=== PATIENT | female | born 1940 | race Caucasian/White ===

== ENCOUNTER 2018-03-14 10:50 | Inpatient (IN) | payer MEDICARE ==
[2018-03-14 14:12] LABS: ALT 28 U/L (9-52); AST 30 U/L (14-36); Alkaline Phosphatase 98 U/L (38-126); Anion Gap 10 mmol/L; Blood Urea Nitrogen 26 mg/dL (7-17); Calcium 9.2 mg/dL (8.4-10.2); Carbon Dioxide 25 mmol/L (22-30); Chloride 103 mmol/L (98-107); Glucose 115 mg/dL (74-99); Sodium 138 mmol/L (137-145); Total Bilirubin 1.2 mg/dL (0.2-1.3); Total Protein 6.4 g/dL (6.3-8.2)
[2018-03-14 14:17] LABS: Potassium 4.3 mmol/L (3.5-5.1)
[2018-03-14 14:20] LABS: Anisocytosis Slight; Basophils % (A) 0 %; Eosinophils # (A) 0.1 k/uL (0-0.7); Eosinophils % (A) 1 %; HGB 14.2 gm/dL (11.4-16.0); Lymphocytes # (A) 0.6 k/uL (1.0-4.8); Lymphocytes % (A) 7 %; MCH 29.3 pg (25.0-35.0); MCHC 32.9 g/dL (31.0-37.0); MCV 88.8 fL (80.0-100.0); Mean Platelet Volume 6.9; Monocytes # (A) 0.4 k/uL (0-1.0); Monocytes % (A) 4 %; Neutrophils % (A) 88 %; Platelet Count 477 k/uL (150-450); RBC 4.84 m/uL (3.80-5.40); RDW 16.4 % (11.5-15.5)
--- NOTE | 2018-03-14 14:22 | XR ---
EXAMINATION TYPE: XR chest 2V DATE OF EXAM: 03/14/2018 COMPARISON: None HISTORY: 78-year-old female with cough TECHNIQUE: PA and lateral views FINDINGS: Heart upper limits of normal in size. Increased retrosternal clear space. Mild biapical pleural-paren chymal scarring. No consolidation or pleural effusion. Subtle nodularity at the right lower lung coul d represent nipple shadow, costochondral calcifications, underlying calcified granuloma, or pulmonary nodule. IMPRESSION: No acute cardiopulmonary process. Possible underlying COPD. There is also a nodular density at the ri ght lower lung for which 4 - 6 week follow-up radiographs are recommended. Differential consideration s above.
--- NOTE | 2018-03-14 15:04 | ED ---
General Adult HPI - General Chief complaint: Abdominal Pain Stated complaint: ovarian mass/vomiting-sent by Time Seen by Provider: 03/14/18 13:24 Source: patient, RN notes reviewed Mode of arrival: ambulatory Limitations: no limitations - History of Present Illness Initial comments: Patient 78-year-old female presented to the emergency room today with a chief complaint of increased abdominal distention with decreased appetite. Patient's symptoms began approximately one month ago has been following his family doctor ordered a CT and chest x-ray that was grossly deformed tomorrow. Patient had increased nausea vomiting over the last day. Does admit to weight loss. Admits to a large amount of abdominal swelling with discomfort that comes and goes. Patient denies any other complaints. Patient denies any recent fever, chills, shortness of breath, chest pain, back pain, abdominal pain, nausea or vomiting, numbness or tingling, dysuria or hematuria, constipation or diarrhea, headaches or visual changes, or any other complaints. - Related Data Home Medications Medication Instructions Recorded Confirmed Furosemide [Lasix] 20 mg PO DAILY 03/14/18 03/14/18 Potassium Chloride [K-Tab ER] 10 meq PO DAILY 03/14/18 03/14/18 buPROPion HCL [Wellbutrin SR] 150 mg PO DAILY 03/14/18 03/14/18 Allergies Allergy/AdvReac Type Severity Reaction Status Date / Time No Known Allergies Allergy Verified 03/14/18 14:02 Review of Systems ROS Statement: Those systems with pertinent positive or pertinent negative responses have been documented in the HPI. ROS Other: All systems not noted in ROS Statement are negative. Past Medical History Additional Past Medical History / Comment(s): ovarian mass History of Any Multi-Drug Resistant Organisms: None Reported Past Surgical History: No Surgical Hx Reported Past Psychological History: Depression Smoking Status: Current every day smoker Past Alcohol Use History: Occasional Past Drug Use History: None Reported General Exam Limitations: no limitations Course Vital Signs 03/14/18 10:56 Temperature 98.2 F Pulse Rate 90 Respiratory 20 Rate Blood Pressure 125/82 O2 Sat by Pulse 96 Oximetry Medical Decision Making - Medical Decision Making Patient's CT of the abdomen and pelvis does show 1. Extensive large and small bowel dilation secondary to a distal obstructing sigmoid mass. Additionally swirling of the mesentery is seen and superimposed into an internal hernia remains a possibility as are a few loops of decompressed small bowel material against one another due to mass effect from the markedly enlarged loops of small and large bowel. Size of the large and small bowel make this patient at risk for possible perforation. 2. Small volume abdominal ascites and mesenteric congestion. 3. Left hepatic lobe intrahepatic biliary ductal dilation and probable panic cyst. Patient's chest x-ray reviewed does show a nodule on the right side. Patient's labs reviewed. Resting comfortably at this time with some mild nausea no active vomiting here. NG tube will be placed to try to decompress. Case was discussed with admitting physician Dr. Rothman recommending surgical consult. - Lab Data Result diagrams: 03/14/18 13:52 03/14/18 13:52 Lab Results 03/14/18 03/14/18 03/14/18 Range/Units 13:52 13:52 13:52 WBC 8.0 (3.8-10.6) k/uL RBC 4.84 (3.80-5.40) m/uL Hgb 14.2 (11.4-16.0) gm/dL Hct 43.0 (34.0-46.0) % MCV 88.8 (80.0-100.0) fL MCH 29.3 (25.0-35.0) pg MCHC 32.9 (31.0-37.0) g/dL RDW 16.4 H (11.5-15.5) % Plt Count 477 H (150-450) k/uL Neutrophils % 88 % Lymphocytes % 7 % Monocytes % 4 % Eosinophils % 1 % Basophils % 0 % Neutrophils # 7.0 (1.3-7.7) k/uL Lymphocytes # 0.6 L (1.0-4.8) k/uL Monocytes # 0.4 (0-1.0) k/uL Eosinophils # 0.1 (0-0.7) k/uL Basophils # 0.0 (0-0.2) k/uL Anisocytosis Slight Sodium 138 (137-145) mmol/L Potassium 4.3 (3.5-5.1) mmol/L Chloride 103 (98-107) mmol/L Carbon Dioxide 25 (22-30) mmol/L Anion Gap 10 mmol/L BUN 26 H (7-17) mg/dL Creatinine 0.60 (0.52-1.04) mg/dL Est GFR (CKD-EPI)AfAm >90 (>60 ml/min/1.73 sqM) Est GFR (CKD-EPI)NonAf 88 (>60 ml/min/1.73 sqM) Glucose 115 H (74-99) mg/dL Calcium 9.2 (8.4-10.2) mg/dL Total Bilirubin 1.2 (0.2-1.3) mg/dL AST 30 (14-36) U/L ALT 28 (9-52) U/L Alkaline Phosphatase 98 (38-126) U/L NT-Pro-B Natriuret Pep 1540 pg/mL Total Protein 6.4 (6.3-8.2) g/dL Albumin 4.0 (3.5-5.0) g/dL Disposition Clinical Impression: Mass of colon, Bowel obstruction Disposition: ADMITTED IP TO THIS HOSP Condition: Stable Is patient prescribed a controlled substance at d/c from ED?: No Referrals: Ana Aburto DO [Primary Care Provider] - 1-2 days Time of Disposition: 15:40
--- NOTE | 2018-03-14 15:26 | CT ---
EXAMINATION TYPE: CT abdomen pelvis w con DATE OF EXAM: 03/14/2018 HISTORY: Nausea, vomiting and generalized abdominal pain and bloating. CT DLP: 691mGycm Automated Exposure Control for Dose Reduction was Utilized. CONTRAST: CT scan of the abdomen and pelvis is performed with IV Contrast, patient injected with 100 mL of Isov ue M300. COMPARISON: None. FINDINGS: LUNG BASES: Mediastinal anterior loculated fluid is present. Small hiatal hernia seen with air-fluid level indicative of residual debris or gastroesophageal reflux LIVER/GB: Left lobe intrahepatic bilia ry ductal dilatation is seen with areas of hyperemia and hypopharyngeal region that are wedge-shaped. Solitary hepatic lesion in the subcapsular on series 3 image 18 measures 9 mm and is fluid attenuate d likely representing a simple cyst PANCREAS: Pancreatic parenchyma is ill-defined secondary to mass effect. SPLEEN: No splenomegaly. ADRENALS: No focal nodule seen. KIDNEYS: Kidneys enhance symmetrically without hydronephrosis. BOWEL: Large bowel is markedly dilated up to 10.1 cm, this places the patient at risk for perforation . This is secondary to obstructing mass of the sigmoid colon that appears elongated seen on axial ser ies 3 image 63 through 69. This is near completely obstructive with decompression of the bowel just d istal to this although there is rectal stool noted. There is marked prominence of the enlargement of the small bowel with mucosal hyperemia and air-fluid levels and dilatation of 2 4.2 cm as well as sma ll bowel feces sign. There is mild abdominal ascites, and perienteric mesenteric edema. Few proximal small bowel loops are decompressed with mass effect upon the abdominal organs from the massively dila [place] bowel. Although there is swirling of the mesentery seen on series 3 image 46 through 54 no beakin g of small bowel is seen to suggest internal hernia. Given the swirling of the mesentery additional i nternal hernia is not excluded. LYMPH NODES: No greater than 1cm abdominal or pelvic lymph nodes are appreciated. OSSEOUS STRUCTURES: No suspicious osseous lesions. OTHER: Extensive calcific atheromatous changes are seen of the abdominal aorta and its branches.. IMPRESSION: 1. Extensive large and small bowel dilatation secondary to a distal obstructing sigmoid mass. Additio keshia swirling of the mesentery is seen and superimposed internal hernia remains a possibility as are a few loops of decompressed small bowel matted against one another due to mass effect from the marke dly enlarged other loops of small and large bowel. The size of the large and small bowel make this pa tient at risk for perforation. Findings were discussed with Keshawn HILL by Dr. Jasmine at 1524 on 03/14/2018. 2. Small volume abdominal ascites and mesenteric congestion. 3. Left hepatic lobe intrahepatic biliary ductal dilatation and probable hepatic cyst.
[2018-03-14] MEDS ORDERED: SODIUM CHLORIDE 0.9% 1,000 ML IV STA (15:39)
[2018-03-14] MEDS ORDERED: ACETAMINOPHEN TAB 325 MG TAB PO PRN (15:50)
[2018-03-14] MEDS ORDERED: ONDANSETRON 4 MG/2 ML VIAL IVP PRN (15:50)
[2018-03-14] MEDS ORDERED: MORPHINE SULFATE 4 MG/ML SYRINGE IV PRN (15:50)
[2018-03-14] MEDS ORDERED: LORazepam 2 MG/ML INJ IV PRN (15:50)
[2018-03-14] MEDS ORDERED: NALOXONE 0.4 MG/ML 1 ML VIAL IV PRN (15:50)
--- NOTE | 2018-03-14 19:48 | P.HPIM ---
History of Present Illness H&P Date: 03/14/18 Chief Complaint: generalized weakness and increasing abdominal distention 3-4 days 78-year-old female who is a in good state of health noted by the daughter has been losing weight for the last several week in spite of the high protein shake the symptoms have been progressive in the last 2 or 3 days she has significant abdominal distention as well as the severe constipation patient was brought into the emergency department and found to have the obstructive lesion in the sigmoid colon and severe degree of abdominal distention, general surgery has been consulted patient had the NG tube significant amount of gastric secretions were removed via suction however lately no significant output is present patient is otherwise awake and alert denies any pain but does have a feeling of distention Review of Systems All systems: negative Past Medical History Past Medical History: No Reported History Additional Past Medical History / Comment(s): cataracts(sx), bladder infection 4 years ago, anxiety History of Any Multi-Drug Resistant Organisms: None Reported Past Surgical History: No Surgical Hx Reported Additional Past Surgical History / Comment(s): cataracts. Past Anesthesia/Blood Transfusion Reactions: No Reported Reaction Smoking Status: Current every day smoker - Past Family History Father Family Medical History: Myocardial Infarction ([place]) Additional Family Medical History / Comment(s): from cardiac carrest at age77 Mother Additional Family Medical History / Comment(s): divertiuclar disease- from sepsis Medications and Allergies Home Medications Medication Instructions Recorded Confirmed Type Furosemide [Lasix] 20 mg PO DAILY 03/14/18 03/14/18 History Potassium Chloride [K-Tab ER] 10 meq PO DAILY 03/14/18 03/14/18 History buPROPion HCL [Wellbutrin SR] 150 mg PO DAILY 03/14/18 03/14/18 History Allergies Allergy/AdvReac Type Severity Reaction Status Date / Time No Known Allergies Allergy Verified 03/14/18 14:02 Physical Exam Vitals: Vital Signs Temp Pulse Pulse Resp BP BP Pulse Ox 03/14/18 17:29 98.1 F 91 16 121/73 96 03/14/18 15:56 98 F 82 18 164/75 97 03/14/18 10:56 98.2 F 90 20 125/82 96 Intake and Output 03/14/18 03/14/18 03/14/18 06:59 14:59 22:59 Other: Weight 46.266 kg - Constitutional General appearance: cooperative, disheveled, mild distress, thin - EENT Eyes: anicteric sclerae, EOMI, PERRLA, poor dentition, normal appearance Ears: bilateral: normal - Neck Neck: normal ROM Carotids: bilateral: upstroke normal, bruit absent Thyroid: bilateral: normal size - Respiratory Respiratory: bilateral: CTA - Cardiovascular Heart sounds: normal: S1, S2 - Gastrointestinal Very distended abdomen with tympanic resonance General gastrointestinal: decreased bowel sounds, distended - Neurologic Neurologic: CNII-XII intact - Musculoskeletal Musculoskeletal: gait normal, generalized weakness, strength equal bilaterally - Psychiatric Psychiatric: A&O x's 3, appropriate affect, intact judgment & insight Results CBC & Chem 7: 03/14/18 13:52 03/14/18 13:52 Labs: Abnormal Lab Results - Last 24 Hours (Table) 03/14/18 03/14/18 Range/Units 13:52 13:52 RDW 16.4 H (11.5-15.5) % Plt Count 477 H (150-450) k/uL Lymphocytes # 0.6 L (1.0-4.8) k/uL BUN 26 H (7-17) mg/dL Glucose 115 H (74-99) mg/dL Chest x-ray: report reviewed, image reviewed (Admitted chest x-ray revealed COPD -like changes right lower lobe nodular density computed tomography scan of the chest revealed mediastinal small hiatal hernia loculated fluid small solitary hepatic nodule is seen) CT scan - abdomen: report reviewed, image reviewed (Findings as noted above significantly large bowel to 10 cm noted related to obstructive mass in the sigmoid colon) Thrombosis Risk Factor Assmnt - Choose All That Apply Any of the Below Risk Factors Present?: Yes Each Factor Represents 1 point: Minor surgery planned Other Risk Factors: Yes Each Risk Factor Represents 3 Points: Age 75 years or older Other congenital or acquired thrombophilia - If yes, enter type in comment: No Thrombosis Risk Factor Assessment Total Risk Factor Score: 4 Thrombosis Risk Factor Assessment Level: Moderate Risk Assessment and Plan Assessment: Obstructive sigmoid colon mass Severe lead dilated colon Elevated BNP related to passive hepatic congestion and preload Bowel obstruction Generalized weakness medical debility and cachexia Plan: Keep patient nothing by mouth NG tube suction Repeat labs tomorrow Gen. surgery consulted aware on's for OR tomorrow DVT and peptic ulcer disease prophylaxis Patient probably will require a designated computed tomography scan of the chest and PET scan on outpatient basis to look into liver nodule and lung density at the bases and for staging purposes Time with Patient: Greater than 30
[2018-03-14] MEDS: HEPARIN SODIUM,PORCINE 5,000 UNIT/ML 1 ML VIAL SQ SCH (22:16)
[2018-03-15 02:30] LABS: Appearance,Urine Clear (Clear); Bilirubin,Urine Negative (Negative); Blood,Urine Negative (Negative); Color,Urine Yellow; Glucose,Urine (UA) Negative (Negative); Ketones,Urine 1+ (Negative); Leukocyte Esterase,Urine Negative (Negative); Nitrite,Urine Negative (Negative); PH, Urine 5.5 (5.0-8.0); Protein,Urine 1+ (Negative); RBC,Urine 1 /hpf (0-5); Squamous Epithelial Cell,Urine 1 /hpf (0-4); Urobilinogen,Urine <2.0 mg/dL (<2.0); WBC,Urine <1 /hpf (0-5)
[2018-03-15 02:31] LABS: Specific Gravity,Urine >1.050 (1.001-1.035)
[2018-03-15 06:55] LABS: Anisocytosis Slight; Basophils % (A) 0 %; Eosinophils % (A) 0 %; HCT 40.3 % (34.0-46.0); HGB 12.8 gm/dL (11.4-16.0); Lymphocytes # (A) 0.9 k/uL (1.0-4.8); Lymphocytes % (A) 12 %; MCH 28.2 pg (25.0-35.0); MCHC 31.8 g/dL (31.0-37.0); MCV 88.9 fL (80.0-100.0); Mean Platelet Volume 6.8; Monocytes # (A) 0.5 k/uL (0-1.0); Monocytes % (A) 6 %; Neutrophils # (A) 5.9 k/uL (1.3-7.7); Neutrophils % (A) 80 %; Platelet Count 396 k/uL (150-450); RBC 4.53 m/uL (3.80-5.40); RDW 16.1 % (11.5-15.5); WBC 7.4 k/uL (3.8-10.6)
[2018-03-15 07:02] LABS: Prothrombin Time 10.3 sec (9.0-12.0)
[2018-03-15 07:15] LABS: ALT 27 U/L (9-52); AST 22 U/L (14-36); Albumin 2.9 g/dL (3.5-5.0); Alkaline Phosphatase 86 U/L (38-126); Anion Gap 8 mmol/L; Blood Urea Nitrogen 25 mg/dL (7-17); Calcium 8.5 mg/dL (8.4-10.2); Carbon Dioxide 24 mmol/L (22-30); Chloride 106 mmol/L (98-107); Glucose 70 mg/dL (74-99); Magnesium 2.1 mg/dL (1.6-2.3); Phosphorus 3.3 mg/dL (2.5-4.5); Potassium 4.8 mmol/L (3.5-5.1); Sodium 138 mmol/L (137-145); Total Bilirubin 1.1 mg/dL (0.2-1.3)
--- NOTE | 2018-03-15 07:56 | P.GSCN ---
History of Present Illness Consult date: 03/15/18 Reason for Consult: Sigmoid colon obstruction History of present illness: This is a 70-year-old female who sees Dr. Aburto's outpatient. Patient has had complaints of constipation over the last several weeks. Patient was admitted to the hospital with a four-day history of no bowel movements and abdominal distention. Her CAT scan performed yesterday shows evidence of complete bowel obstruction with sigmoid colon obstructing mass. Past Medical History Past Medical History: No Reported History Additional Past Medical History / Comment(s): cataracts(sx), bladder infection 4 years ago, anxiety History of Any Multi-Drug Resistant Organisms: None Reported Past Surgical History: No Surgical Hx Reported Additional Past Surgical History / Comment(s): cataracts. Past Anesthesia/Blood Transfusion Reactions: No Reported Reaction Smoking Status: Current every day smoker - Past Family History Father Family Medical History: Myocardial Infarction ([place]) Additional Family Medical History / Comment(s): from cardiac carrest at age77 Mother Additional Family Medical History / Comment(s): divertiuclar disease- from sepsis Medications and Allergies Home Medications Medication Instructions Recorded Confirmed Type Furosemide [Lasix] 20 mg PO DAILY 03/14/18 03/14/18 History Potassium Chloride [K-Tab ER] 10 meq PO DAILY 03/14/18 03/14/18 History buPROPion HCL [Wellbutrin SR] 150 mg PO DAILY 03/14/18 03/14/18 History Allergies Allergy/AdvReac Type Severity Reaction Status Date / Time No Known Allergies Allergy Verified 03/14/18 14:02 Surgical - Exam Vital Signs Temp Pulse Resp BP Pulse Ox 98.2 F 90 20 125/82 96 03/14/18 10:56 03/14/18 10:56 03/14/18 10:56 03/14/18 10:56 03/14/18 10:56 - General well developed, moderate distress - Eyes PERRL - ENT normal pinna - Neck no masses - Respiratory normal expansion - Cardiovascular Rhythm: regular - Abdomen Edith soft. There is significant distention of the abdomen, there is no rebound or guarding Results - Labs 03/15/18 06:38 03/15/18 06:38 Abnormal Lab Results - Last 24 Hours (Table) 03/14/18 03/14/18 03/15/18 Range/Units 13:52 13:52 01:55 RDW 16.4 H (11.5-15.5) % Plt Count 477 H (150-450) k/uL Lymphocytes # 0.6 L (1.0-4.8) k/uL BUN 26 H (7-17) mg/dL Glucose 115 H (74-99) mg/dL Total Protein (6.3-8.2) g/dL Albumin (3.5-5.0) g/dL Ur Specific [place] >1.050 H (1.001-1.035) Urine Protein 1+ H (Negative) Urine Ketones 1+ H (Negative) 03/15/18 03/15/18 Range/Units 06:38 06:38 RDW 16.1 H (11.5-15.5) % Plt Count (150-450) k/uL Lymphocytes # 0.9 L (1.0-4.8) k/uL BUN 25 H (7-17) mg/dL Glucose 70 L (74-99) mg/dL Total Protein 5.0 L (6.3-8.2) g/dL Albumin 2.9 L (3.5-5.0) g/dL Ur Specific [place] (1.001-1.035) Urine Protein (Negative) Urine Ketones (Negative) Diabetes panel 03/14/18 03/15/18 Range/Units 13:52 06:38 Sodium 138 138 (137-145) mmol/L Potassium 4.3 4.8 (3.5-5.1) mmol/L Chloride 103 106 (98-107) mmol/L Carbon Dioxide 25 24 (22-30) mmol/L BUN 26 H 25 H (7-17) mg/dL Creatinine 0.60 0.60 (0.52-1.04) mg/dL Glucose 115 H 70 L (74-99) mg/dL Calcium 9.2 8.5 (8.4-10.2) mg/dL AST 30 22 (14-36) U/L ALT 28 27 (9-52) U/L Alkaline Phosphatase 98 86 (38-126) U/L Total Protein 6.4 5.0 L (6.3-8.2) g/dL Albumin 4.0 2.9 L (3.5-5.0) g/dL Calcium panel 03/14/18 03/15/18 Range/Units 13:52 06:38 Calcium 9.2 8.5 (8.4-10.2) mg/dL Phosphorus 3.3 (2.5-4.5) mg/dL Albumin 4.0 2.9 L (3.5-5.0) g/dL Pituitary panel 03/14/18 03/15/18 Range/Units 13:52 06:38 Sodium 138 138 (137-145) mmol/L Potassium 4.3 4.8 (3.5-5.1) mmol/L Chloride 103 106 (98-107) mmol/L Carbon Dioxide 25 24 (22-30) mmol/L BUN 26 H 25 H (7-17) mg/dL Creatinine 0.60 0.60 (0.52-1.04) mg/dL Glucose 115 H 70 L (74-99) mg/dL Calcium 9.2 8.5 (8.4-10.2) mg/dL Adrenal panel 03/14/18 03/15/18 Range/Units 13:52 06:38 Sodium 138 138 (137-145) mmol/L Potassium 4.3 4.8 (3.5-5.1) mmol/L Chloride 103 106 (98-107) mmol/L Carbon Dioxide 25 24 (22-30) mmol/L BUN 26 H 25 H (7-17) mg/dL Creatinine 0.60 0.60 (0.52-1.04) mg/dL Glucose 115 H 70 L (74-99) mg/dL Calcium 9.2 8.5 (8.4-10.2) mg/dL Total Bilirubin 1.2 1.1 (0.2-1.3) mg/dL AST 30 22 (14-36) U/L ALT 28 27 (9-52) U/L Alkaline Phosphatase 98 86 (38-126) U/L Total Protein 6.4 5.0 L (6.3-8.2) g/dL Albumin 4.0 2.9 L (3.5-5.0) g/dL - Imaging CT scan - abdomen: report reviewed (CT shows evidence of complete colon obstruction and sigmoid colon due to mass. There is dilation of the colon and small bowel.) Assessment and Plan Assessment: Obstructing sigmoid colon mass. Patient will undergo exploratory laparotomy with possible sigmoid colectomy and decompressive colostomy.
[2018-03-15] MEDS: HEPARIN SODIUM,PORCINE 5,000 UNIT/ML 1 ML VIAL SQ SCH ×4 (08:59→23:31)
[2018-03-15] MEDS: PANTOPRAZOLE 40 MG/10 ML VIAL IVP SCH (09:05)
[2018-03-15] MEDS ORDERED: IV FLUID CONTINUATION 1,000 ML IV ONE (09:29)
[2018-03-15] MEDS ORDERED: MIDAZOLAM 2 MG/2 ML VIAL IVP ONE (10:05)
[2018-03-15] MEDS ORDERED: diphenhydrAMINE 50 MG/ML 1 ML VIAL IVP PRN (10:14)
[2018-03-15] MEDS ORDERED: NALOXONE 0.4 MG/ML 1 ML VIAL IV PRN (10:14)
[2018-03-15] MEDS ORDERED: LACTATED RINGERS 1,000 ML IV ONE ×2 (10:32→11:45)
[2018-03-15] MEDS ORDERED: ROCURONIUM BROMIDE 10 MG/ML 10 ML VIAL IV ONE (10:51)
[2018-03-15] MEDS ORDERED: NEOSTIGMINE 1 MG/ML 10 ML VIAL ONE (10:51)
[2018-03-15] MEDS ORDERED: MIDAZOLAM 2 MG/2 ML VIAL ONE (10:51)
[2018-03-15] MEDS ORDERED: ePHEDrine SULFATE/0.9% NACL/PF 50 MG/5 ML SYRINGE IV ONE (10:51)
[2018-03-15] MEDS ORDERED: PROPOFOL 10 MG/ML 20 ML VIAL IV ONE (10:51)
[2018-03-15] MEDS ORDERED: SUCCINYLCHOLINE CHLORIDE 100 MG/5 ML SYR IV ONE (10:51)
[2018-03-15] MEDS ORDERED: LIDOCAINE 1% INJ 10MG/ML (20 ML MDV) ONE (10:51)
[2018-03-15] MEDS ORDERED: GLYCOPYRROLATE 0.2 MG/ML 2 ML VIAL ONE (10:51)
[2018-03-15] MEDS ORDERED: fentaNYL (PF) 50 MCG/ML 2 ML AMP ONE (10:51)
[2018-03-15] MEDS ORDERED: SODIUM CHLORIDE 0.9% 100 ML with ceFAZolin 2,000 MG IV ONE ×2 (11:00)
[2018-03-15] MEDS ORDERED: METOCLOPRAMIDE 5 MG/ML 2 ML VIAL IVP PRN (11:52)
[2018-03-15] MEDS ORDERED: BENZOCAINE/MENTHOL LOZENG 1 EACH LOZENGE MUCOUS MEM PRN (11:52)
[2018-03-15] MEDS: ROPIVACAINE 250 MG, HYDROMORPHONE (PF) 5 MG in SODIUM CHLORIDE 0.9% 200 ML EPIDURAL PRN ×2 (12:25→13:36)
[2018-03-15] MEDS ORDERED: SODIUM CHLORIDE 0.9% 1,000 ML IV ONE (13:36)
--- NOTE | 2018-03-15 13:38 | XR ---
EXAMINATION TYPE: XR chest 1V confirm line [facility] DATE OF EXAM: 03/15/2018 COMPARISON: Prior chest x-ray dated 03/14/2018 HISTORY: Central line insertion TECHNIQUE: Single frontal view of the chest is obtained. FINDINGS: Interval placement of right jugular central venous catheter, distal tip is overlying the r ight atrium. No evident pneumothorax or pleural effusion. NG tube is been placed in the interval whic h is coiled in left upper quadrant. There are overlying cardiac leads. There is suspected to be some interval improvement in the distention of the bowel loops and distended stomach within the abdomen. N o other interval change. IMPRESSION: No evident complication status post central venous catheter placement. Distal tip within the right atrium.
[2018-03-15] MEDS: D5-0.45% NACL WITH KCL 20MEQ/L 1,000 ML IV SCH ×2 (15:06→23:30)
[2018-03-15 15:28] LABS: Anisocytosis Slight; Basophils % (A) 0 %; Eosinophils % (A) 0 %; HGB 13.2 gm/dL (11.4-16.0); Lymphocytes # (A) 0.5 k/uL (1.0-4.8); Lymphocytes % (A) 4 %; MCH 29.4 pg (25.0-35.0); MCHC 32.2 g/dL (31.0-37.0); MCV 91.4 fL (80.0-100.0); Mean Platelet Volume 6.5; Monocytes # (A) 0.5 k/uL (0-1.0); Monocytes % (A) 4 %; Neutrophils # (A) 12.5 k/uL (1.3-7.7); Neutrophils % (A) 92 %; Platelet Count 421 k/uL (150-450); RBC 4.48 m/uL (3.80-5.40); RDW 16.4 % (11.5-15.5); WBC 13.6 k/uL (3.8-10.6)
[2018-03-15 15:38] LABS: Anion Gap 9 mmol/L; Blood Urea Nitrogen 24 mg/dL (7-17); Calcium 7.9 mg/dL (8.4-10.2); Carbon Dioxide 18 mmol/L (22-30); Chloride 110 mmol/L (98-107); Glucose 99 mg/dL (74-99); Potassium 4.4 mmol/L (3.5-5.1); Sodium 137 mmol/L (137-145)
[2018-03-15] MEDS: metroNIDAZOLE-NS PMX 500 MG in SALINE 1 100ML.BAG IVPB SCH ×2 (16:20→23:32)
--- NOTE | 2018-03-15 19:20 | P.PN ---
Subjective Progress Note Date: 03/15/18 Principal diagnosis: Acute bowel obstruction, megacolon, large sigmoid colon mass status post resection 03/15/2018, postop day #0 patient status post resection of large sigmoid mass for details please refer to the note dictated by surgical services patient has a G-tube also has triple lumen catheter in the right internal jugular vein through which patient is getting TPN she is also on broad-spectrum antibiotics for anticipated micro-perforation my labs reviewed there is a leukocytosis present Objective - Vital Signs Vital signs: Vital Signs Temp 98 F 03/15/18 16:00 Pulse 68 03/15/18 16:00 Resp 16 03/15/18 16:00 BP 120/58 03/15/18 16:00 Pulse Ox 92 L 03/15/18 16:00 Intake & Output 03/15/18 03/15/18 03/16/18 06:59 18:59 06:59 Intake Total 1200 1700 Output Total 700 250 Balance 500 1450 Weight 46.266 kg Intake: IV 1700 Intake, IV Titration 1200 Amount Sodium Chloride 0.9% 1, 1200 000 ml @ 100 mls/hr IV . Q10H STA Rx#:[id number] Output: Gastric Drainage 100 Urine 600 150 Estimated Blood Loss 100 Other: Voiding Method Indwelling Catheter Indwelling Catheter - Exam - Constitutional General appearance: cooperative, disheveled, mild distress, thin - EENT Eyes: anicteric sclerae, EOMI, PERRLA, poor dentition, normal appearance Ears: bilateral: normal NG tube connected to suction low intermittent - Neck Neck: normal ROM Carotids: bilateral: upstroke normal, bruit absent Thyroid: bilateral: normal size - Respiratory Respiratory: bilateral: CTA - Cardiovascular Heart sounds: normal: S1, S2 - Gastrointestinal Very distended abdomen with tympanic resonance, status post colostomy General gastrointestinal: decreased bowel sounds, distended - Neurologic Neurologic: CNII-XII intact - Musculoskeletal Musculoskeletal: gait normal, generalized weakness, strength equal bilaterally - Psychiatric Psychiatric: A&O x's 3, appropriate affect, intact judgment & insight - Labs CBC & Chem 7: 03/15/18 15:12 03/15/18 15:12 Labs: Abnormal Lab Results - Last 24 Hours (Table) 03/15/18 03/15/18 03/15/18 Range/Units 01:55 06:38 06:38 WBC (3.8-10.6) k/uL RDW 16.1 H (11.5-15.5) % Neutrophils # (1.3-7.7) k/uL Lymphocytes # 0.9 L (1.0-4.8) k/uL Chloride (98-107) mmol/L Carbon Dioxide (22-30) mmol/L BUN 25 H (7-17) mg/dL Creatinine (0.52-1.04) mg/dL Glucose 70 L (74-99) mg/dL Calcium (8.4-10.2) mg/dL Total Protein 5.0 L (6.3-8.2) g/dL Albumin 2.9 L (3.5-5.0) g/dL Ur Specific [place] >1.050 H (1.001-1.035) Urine Protein 1+ H (Negative) Urine Ketones 1+ H (Negative) 03/15/18 03/15/18 Range/Units 15:12 15:12 WBC 13.6 H (3.8-10.6) k/uL RDW 16.4 H (11.5-15.5) % Neutrophils # 12.5 H (1.3-7.7) k/uL Lymphocytes # 0.5 L (1.0-4.8) k/uL Chloride 110 H (98-107) mmol/L Carbon Dioxide 18 L (22-30) mmol/L BUN 24 H (7-17) mg/dL Creatinine 0.50 L (0.52-1.04) mg/dL Glucose (74-99) mg/dL Calcium 7.9 L (8.4-10.2) mg/dL Total Protein (6.3-8.2) g/dL Albumin (3.5-5.0) g/dL Ur Specific [place] (1.001-1.035) Urine Protein (Negative) Urine Ketones (Negative) Assessment and Plan Assessment: Obstructive sigmoid colon mass status post resection Sirs-like process likely microperforation on broad-spectrum antibiotic Severely dilated colon Elevated BNP related to passive hepatic congestion and preload Bowel obstruction Generalized weakness medical debility and cachexia Plan: Keep patient nothing by mouth NG tube suction Repeat labs tomorrow Gen. surgery following Into new deep breathing sense incentive spirometry TU TPN DVT and peptic ulcer disease prophylaxis Patient probably will require a designated computed tomography scan of the chest and PET scan on outpatient basis to look into liver nodule and lung density at the bases and for staging purposes, will be arranged as an outpatient setting Time with Patient: Greater than 30
[2018-03-15] MEDS: CEFEPIME 1 GM in SODIUM CHLORIDE 0.9% 50 ML IVPB SCH (20:27)
--- NOTE | 2018-03-15 21:27 | P.CONS ---
History of Present Illness - Reason for Consult Consult date: 03/15/18 Sigmoid colon mass with obstruction - History of Present Illness The patient is a 78-year-old white female, generally in good health at baseline. Over the past few weeks the patient had noted a poor appetite and some vague abdominal discomfort. She had been losing weight steadily during that time. She had noted constipation in the week prior to admission, with increasing abdominal distention. The symptoms progressed to where she was unable to have a bowel movement or passed gas, and also noted increasing swelling of the abdomen. She therefore came into the emergency room where CT of the abdomen and pelvis showed a high-grade obstruction proximal to the sigmoid. The patient was therefore admitted with NG tube placement done. Consult was placed for further evaluation and recommendations. She denies any prior history of malignancy. She has never had a colonoscopy before. Review of Systems Constitutional: Reports poor appetite, Reports weakness Eyes: denies blurred vision, denies pain Ears: deny: decreased hearing, ear discharge, earache, tinnitus Ears, nose, mouth and throat: Denies headache, Denies sore throat Cardiovascular: Denies chest pain, Denies shortness of breath Respiratory: Denies cough Gastrointestinal: Reports as per HPI, Reports abdominal pain, Reports bloating, Reports constipation, Reports nausea Genitourinary: Denies dysuria, Denies hematuria Menstruation: Reports postmenopausal Musculoskeletal: Reports muscle weakness Integumentary: Denies pruritus, Denies rash Neurological: Reports weakness, Denies numbness Psychiatric: Denies anxiety, Denies depression Endocrine: Reports fatigue, Reports weight change Hematologic/Lymphatic: Reports as per HPI Past Medical History Past Medical History: No Reported History Additional Past Medical History / Comment(s): cataracts(sx), bladder infection 4 years ago, anxiety History of Any Multi-Drug Resistant Organisms: None Reported Past Surgical History: No Surgical Hx Reported Additional Past Surgical History / Comment(s): cataracts. Past Anesthesia/Blood Transfusion Reactions: No Reported Reaction Smoking Status: Current every day smoker - Past Family History Father Family Medical History: Myocardial Infarction (HI) Additional Family Medical History / Comment(s): from cardiac carrest at age77 Mother Additional Family Medical History / Comment(s): divertiuclar disease- from sepsis Medications and Allergies Home Medications Medication Instructions Recorded Confirmed Type Furosemide [Lasix] 20 mg PO DAILY 03/14/18 03/14/18 History Potassium Chloride [K-Tab ER] 10 meq PO DAILY 03/14/18 03/14/18 History buPROPion HCL [Wellbutrin SR] 150 mg PO DAILY 03/14/18 03/14/18 History Allergies Allergy/AdvReac Type Severity Reaction Status Date / Time No Known Allergies Allergy Verified 03/14/18 14:02 Physical Exam Vitals: Vital Signs Temp Pulse Pulse Resp BP BP Pulse Ox 03/15/18 07:00 98.1 F 75 16 111/68 95 03/14/18 22:15 97.7 F 81 16 118/64 94 L 03/14/18 17:29 98.1 F 91 16 121/73 96 03/14/18 15:56 98 F 82 18 164/75 97 03/14/18 10:56 98.2 F 90 20 125/82 96 Intake and Output 03/14/18 03/15/18 03/15/18 22:59 06:59 14:59 Intake Total 400 800 Output Total 700 Balance 400 100 Intake: Intake, IV Titration 400 800 Amount Sodium Chloride 0.9% 1, 400 800 000 ml @ 100 mls/hr IV . Q10H STA Rx#:[id number] Output: Gastric Drainage 100 Urine 600 Other: Voiding Method Indwelling Catheter Indwelling Catheter - Constitutional General appearance: no acute distress - EENT Eyes: EOMI, PERRLA ENT: hearing grossly normal, normal oropharynx - Neck Neck: no lymphadenopathy Thyroid: bilateral: normal size - Respiratory Respiratory: bilateral: CTA - Cardiovascular Rhythm: regular Heart sounds: normal: S1, S2 - Gastrointestinal General gastrointestinal: decreased bowel sounds, distended - Integumentary Integumentary: normal - Neurologic Neurologic: CNII-XII intact - Musculoskeletal Musculoskeletal: generalized weakness, strength equal bilaterally - Psychiatric Psychiatric: A&O x's 3, appropriate affect, intact judgment & insight Results CBC & Chem 7: 03/15/18 15:12 03/15/18 15:12 Labs: Abnormal Lab Results - Last 24 Hours (Table) 03/14/18 03/14/18 03/15/18 Range/Units 13:52 13:52 01:55 RDW 16.4 H (11.5-15.5) % Plt Count 477 H (150-450) k/uL Lymphocytes # 0.6 L (1.0-4.8) k/uL BUN 26 H (7-17) mg/dL Glucose 115 H (74-99) mg/dL Total Protein (6.3-8.2) g/dL Albumin (3.5-5.0) g/dL Ur Specific [place] >1.050 H (1.001-1.035) Urine Protein 1+ H (Negative) Urine Ketones 1+ H (Negative) 03/15/18 03/15/18 Range/Units 06:38 06:38 RDW 16.1 H (11.5-15.5) % Plt Count (150-450) k/uL Lymphocytes # 0.9 L (1.0-4.8) k/uL BUN 25 H (7-17) mg/dL Glucose 70 L (74-99) mg/dL Total Protein 5.0 L (6.3-8.2) g/dL Albumin 2.9 L (3.5-5.0) g/dL Ur Specific [place] (1.001-1.035) Urine Protein (Negative) Urine Ketones (Negative) Chest x-ray: report reviewed CT scan - abdomen: report reviewed CT scan - pelvis: report reviewed Assessment and Plan (1) Mass of colon Narrative/Plan: The CT AP and clinical presentation are most s/o a colon malignancy. She is presenting with obstruction, and has no evidence of metastatic disease by CT. Thus the next step in her management would be surgical resection, which would relieve the obstruction, provide surgical treatment, pathologic diagnosis, and staging. The pt and her family were advised re treatment guidelines post surgery based on stage. Based on presentation with obstruction, alone, chemo would be recommended, refardless of additional staging findings. They were also advised that any adjuvant treatment would not start till a minimum of at least 4 weeks post surgery. Current Visit: Yes Status: Acute Code(s): K63.9 - DISEASE OF INTESTINE, UNSPECIFIED SNOMED Code(s): 990033304 (2) Bowel obstruction Narrative/Plan: The pt is undergoing NGT decompression. Defer to the surgical service re further management. Current Visit: Yes Status: Acute Code(s): K56.609 - UNSP INTESTNL OBST, UNSP TO PARTIAL VERSUS COMPLETE OBST SNOMED Code(s): 99861424
--- NOTE | 2018-03-16 06:19 | P.PN ---
Progress Note - Text Progress Note Date: 03/16/18 78-year-old female status post exploratory lap laparotomy postop day #1 epidural catheter day #2. Patient is doing well, with no significant abdominal pain. I VAS is a 2 out of 10 in severity. Patient has nothing by mouth has an NG tube in place. No motor deficits no sensory deficits, patient does not complain of any back pain. Rate is running currently at 7 ML's an hour. Plan is to continue current settings.
--- NOTE | 2018-03-16 07:19 | OP ---
OPERATIVE REPORT DATE OF SURGERY: 03/15/2018 PROCEDURE: 1. Exploratory laparotomy. 2. Sigmoid colectomy. 3. Takedown of splenic flexure. PREOPERATIVE DIAGNOSIS: Colonic obstruction. 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 SURGEON: Reji Burroughs MD ANESTHESIA: General endotracheal anesthesia. ESTIMATED BLOOD LOSS: 50 mL. PROCEDURE: Patient was placed on the operative table in the supine position. She received general anesthesia. Her abdomen was prepped and draped in the usual sterile fashion. The abdomen was entered through a midline incision. The colon and small bowel were massively dilated. Using electrocautery, a small opening was made in the transverse colon and then the colon was decompressed. The enterotomy was closed with a TA stapler. At this point, the bowel was run down to the level of the sigmoid colon. There appeared to be an obstruction due to a mass. The left colon was mobilized. The splenic flexure was then mobilized. Then the colon was transected proximally with the MIAN stapler. The mesentery of the colon was taken with the EnSeal device. The rectum was transected with the contour stapler. The abdomen was irrigated. There was no bleeding seen. There was no evidence of any other metastatic disease. At this point, a suitable spot for the colostomy was chosen and then an opening was made on the abdominal wall by grasping the skin with a pair of Rigo clamps and then using a 15- blade knife to divide the skin and then used electrocautery to divide the fascia, external oblique and the rectus muscles were bluntly divided. The colostomy was then brought up through the abdominal wall. The fascia was closed with looped #1 PDS suture. Skin was closed joselito. The colostomy was then matured with 3-0 Vicryl suture. The patient tolerated procedure well and was sent to recovery room in stable condition. MMODL / IJN: [id number] /
[2018-03-16 07:40] LABS: Anisocytosis Slight; Basophils % (A) 0 %; Eosinophils % (A) 0 %; HCT 39.1 % (34.0-46.0); HGB 12.3 gm/dL (11.4-16.0); Lymphocytes # (A) 0.4 k/uL (1.0-4.8); Lymphocytes % (A) 6 %; MCH 28.5 pg (25.0-35.0); MCHC 31.5 g/dL (31.0-37.0); MCV 90.5 fL (80.0-100.0); Mean Platelet Volume 6.8; Monocytes # (A) 0.5 k/uL (0-1.0); Monocytes % (A) 8 %; Neutrophils # (A) 5.9 k/uL (1.3-7.7); Neutrophils % (A) 85 %; Platelet Count 366 k/uL (150-450); RBC 4.32 m/uL (3.80-5.40); RDW 16.2 % (11.5-15.5)
[2018-03-16] MEDS: D5-0.45% NACL WITH KCL 20MEQ/L 1,000 ML IV SCH ×2 (07:45→13:36)
[2018-03-16] MEDS: metroNIDAZOLE-NS PMX 500 MG in SALINE 1 100ML.BAG IVPB SCH ×2 (07:49→16:06)
[2018-03-16] MEDS: HEPARIN SODIUM,PORCINE 5,000 UNIT/ML 1 ML VIAL SQ SCH ×2 (07:50→16:12)
[2018-03-16] MEDS: PANTOPRAZOLE 40 MG/10 ML VIAL IVP SCH (07:51)
[2018-03-16 08:17] LABS: ALT 26 U/L (9-52); AST 19 U/L (14-36); Albumin 2.2 g/dL (3.5-5.0); Alkaline Phosphatase 59 U/L (38-126); Anion Gap 3 mmol/L; Blood Urea Nitrogen 20 mg/dL (7-17); Calcium 7.7 mg/dL (8.4-10.2); Carbon Dioxide 26 mmol/L (22-30); Chloride 107 mmol/L (98-107); Glucose 117 mg/dL (74-99); Potassium 4.8 mmol/L (3.5-5.1); Sodium 136 mmol/L (137-145); Total Bilirubin 0.5 mg/dL (0.2-1.3); Total Protein 3.9 g/dL (6.3-8.2)
[2018-03-16] MEDS: CEFEPIME 1 GM in SODIUM CHLORIDE 0.9% 50 ML IVPB SCH ×2 (09:21→20:58)
--- NOTE | 2018-03-16 11:17 | P.PN ---
Subjective Progress Note Date: 03/16/18 78-year-old female who is a in good state of health noted by the daughter has been losing weight for the last several week in spite of the high protein shake the symptoms have been progressive in the last 2 or 3 days she has significant abdominal distention as well as the severe constipation patient was brought into the emergency department and found to have the obstructive lesion in the sigmoid colon and severe degree of abdominal distention, general surgery has been consulted patient had the NG tube significant amount of gastric secretions were removed via suction however lately no significant output is present patient is otherwise awake and alert denies any pain but does have a feeling of distention 03/15/2018, postop day #0 patient status post resection of large sigmoid mass for details please refer to the note dictated by surgical services patient has a G-tube also has triple lumen catheter in the right internal jugular vein through which patient is getting TPN she is also on broad-spectrum antibiotics for anticipated micro-perforation my labs reviewed there is a leukocytosis present On 03/16/2018 patient is currently resting comfortably in bed postop day 1 status post resection of large sigmoid mass. Patient currently is epidural in place for pain control. Patient also his NG to LIS. Patient remains nothing by mouth per surgical. Patient denies chest pain or shortness of breath. Patient encouraged to continue to use incentive spirometer Objective - Vital Signs Vital signs: Vital Signs Temp 98.0 F 03/16/18 05:00 Pulse 79 03/16/18 07:59 Resp 16 03/16/18 07:59 BP 96/61 03/16/18 05:00 Pulse Ox 93 L 03/16/18 05:00 Intake & Output 03/15/18 03/16/18 03/16/18 18:59 06:59 18:59 Intake Total 1700 Output Total 250 300 240 Balance 1450 -300 -240 Weight 46.266 kg 46.266 kg Intake: IV 1700 Output: Urine 150 300 200 Uretheral (Clark) 200 Stool 40 Estimated Blood Loss 100 Other: Voiding Method Indwelling Catheter Indwelling Catheter Indwelling Catheter - Exam Head normocephalic Neck supple Lungs clear to auscultation bilaterally no wheezing or crackles Heart regular rate and rhythm S1-S2, no rub or gallop Abdomen distended abdomen improved. Status post colostomy hypoactive bowel sounds Extremities no edema Neuro alert and orientated to 3 - Labs CBC & Chem 7: 03/16/18 07:13 03/16/18 07:13 Labs: Abnormal Lab Results - Last 24 Hours (Table) 03/15/18 03/15/18 03/16/18 Range/Units 15:12 15:12 07:13 WBC 13.6 H (3.8-10.6) k/uL RDW 16.4 H 16.2 H (11.5-15.5) % Neutrophils # 12.5 H (1.3-7.7) k/uL Lymphocytes # 0.5 L 0.4 L (1.0-4.8) k/uL Sodium (137-145) mmol/L Chloride 110 H (98-107) mmol/L Carbon Dioxide 18 L (22-30) mmol/L BUN 24 H (7-17) mg/dL Creatinine 0.50 L (0.52-1.04) mg/dL Glucose (74-99) mg/dL Calcium 7.9 L (8.4-10.2) mg/dL Total Protein (6.3-8.2) g/dL Albumin (3.5-5.0) g/dL 03/16/18 Range/Units 07:13 WBC (3.8-10.6) k/uL RDW (11.5-15.5) % Neutrophils # (1.3-7.7) k/uL Lymphocytes # (1.0-4.8) k/uL Sodium 136 L (137-145) mmol/L Chloride (98-107) mmol/L Carbon Dioxide (22-30) mmol/L BUN 20 H (7-17) mg/dL Creatinine (0.52-1.04) mg/dL Glucose 117 H (74-99) mg/dL Calcium 7.7 L (8.4-10.2) mg/dL Total Protein 3.9 L (6.3-8.2) g/dL Albumin 2.2 L (3.5-5.0) g/dL Assessment and Plan Assessment: 1. 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 Burroughs. Patient is postop day 1. Epidural remains in place for pain control. Patient remains nothing by mouth. Patient has a nasogastric tube LIS. Surgical services are following. Patient remains on TPN. 2. Sirs-like process likely microperforation on broad-spectrum antibiotic. Flagyl and Cefapime has been added. WBC 7.0 3. Severely dilated colon. Patient is status post bowel resection for obstructive sigmoid colon mass with colostomy 4. Elevated BNP related to passive hepatic congestion and preload 5. Generalized weakness medical debility and cachexia DVT prophylaxis heparin, GI prophylaxis Protonix Patient probably will require a designated computed tomography scan of the chest and PET scan on outpatient basis to look into liver nodule and lung density at the bases and for staging purposes, will be arranged as an outpatient setting I performed an examination of the patient and discussed their management with the Nurse Practitioner. I have reviewed the Nurse Practitioner's notes and agree with the documented findings and plan of care
--- NOTE | 2018-03-16 13:17 | P.PN ---
Subjective Progress Note Date: 03/16/18 78-year-old female sitting up in bed. Nasogastric tube to suction. A moderate amount of secretions noted in the canister. Ostomy left lower quadrant stoma pink. Is passing gas no stool surgical dressing site dry. Epidural in for pain control. Reports no nausea vomiting states pain medication effective for pain control Patient is postop day March 15 exploratory laparotomy, sigmoid colectomy, takedown of splenic flexure with ostomy due to a colon obstruction secondary to a sigmoid colon tumor Objective - Vital Signs Vital signs: Vital Signs Temp 98.0 F 03/16/18 05:00 Pulse 79 03/16/18 07:59 Resp 16 03/16/18 07:59 BP 96/61 03/16/18 05:00 Pulse Ox 93 L 03/16/18 05:00 Intake & Output 03/15/18 03/16/18 03/16/18 18:59 06:59 18:59 Intake Total 1700 Output Total 250 300 240 Balance 1450 -300 -240 Weight 46.266 kg 46.266 kg Intake: IV 1700 Output: Urine 150 300 200 Uretheral (Clark) 200 Stool 40 Estimated Blood Loss 100 Other: Voiding Method Indwelling Catheter Indwelling Catheter Indwelling Catheter - Exam Physical exam 70-year-old female sitting up in bed family at bedside Lungs posterior diminished at the bases sats on 4 L 92% no shortness of breath Heart S1-S2 audible regular denies chest pain Abdomen colostomy left lower quadrant stoma pink surgical dressing site dry few hypoactive bowel tones indwelling Clark catheter in place soft surgical tenderness appropriate not distended nasal gastric tube to suction passing gas no stool from ostomy Extremities no edema noted Venodyne's on bilaterally - Labs CBC & Chem 7: 03/16/18 07:13 03/16/18 07:13 Labs: Abnormal Lab Results - Last 24 Hours (Table) 03/15/18 03/15/18 03/16/18 Range/Units 15:12 15:12 07:13 WBC 13.6 H (3.8-10.6) k/uL RDW 16.4 H 16.2 H (11.5-15.5) % Neutrophils # 12.5 H (1.3-7.7) k/uL Lymphocytes # 0.5 L 0.4 L (1.0-4.8) k/uL Sodium (137-145) mmol/L Chloride 110 H (98-107) mmol/L Carbon Dioxide 18 L (22-30) mmol/L BUN 24 H (7-17) mg/dL Creatinine 0.50 L (0.52-1.04) mg/dL Glucose (74-99) mg/dL Calcium 7.9 L (8.4-10.2) mg/dL Total Protein (6.3-8.2) g/dL Albumin (3.5-5.0) g/dL 03/16/18 Range/Units 07:13 WBC (3.8-10.6) k/uL RDW (11.5-15.5) % Neutrophils # (1.3-7.7) k/uL Lymphocytes # (1.0-4.8) k/uL Sodium 136 L (137-145) mmol/L Chloride (98-107) mmol/L Carbon Dioxide (22-30) mmol/L BUN 20 H (7-17) mg/dL Creatinine (0.52-1.04) mg/dL Glucose 117 H (74-99) mg/dL Calcium 7.7 L (8.4-10.2) mg/dL Total Protein 3.9 L (6.3-8.2) g/dL Albumin 2.2 L (3.5-5.0) g/dL Assessment and Plan Assessment: Impression Present on admission abdominal pain bloating constipation suspect due to colon Obstruction related to sigmoid colon tumor Status post exploratory laparotomy, sigmoid colectomy, takedown of splenic flexure due to a colon obstruction Mild protein calorie malnutrition underweight with poor muscle tone suspect due to poor caloric intake BMI 18 Plan start TPN for nutritional support defer to dietitian Continue epidural per anesthesia pain control Continue postop surgical care Encourage the use of an incentive spirometer Increase activity Await path report pending Continue recommendations by oncology The above impression and plan of care have been discussed and directed by signing physician. Soha Casas nurse practitioner acting as scribe for signing physician.
[2018-03-16 15:12] LABS: Ionized Calcium 4.8 mg/dL (4.5-5.3)
[2018-03-16 15:20] LABS: Magnesium 1.9 mg/dL (1.6-2.3); Phosphorus 1.9 mg/dL (2.5-4.5)
[2018-03-16] MEDS ORDERED: MVI, ADULT NO.4 WITH VIT K 10 ML, TRACE (CONC-1ML/DOSE) 1 ML in AMINO ACID 5%-D15W+LYTE... IV SCH ×3 (15:30)
--- NOTE | 2018-03-16 15:36 | P.PN ---
Subjective Progress Note Date: 03/16/18 Principal diagnosis: New Colon Cancer Patient seen and examined in follow-up today, She will be initiated on TPN for nutrition at this time per surgery. NG tube LIS Objective - Vital Signs Vital signs: Vital Signs Temp 98.0 F 03/16/18 05:00 Pulse 79 03/16/18 07:59 Resp 16 03/16/18 07:59 BP 96/61 03/16/18 05:00 Pulse Ox 93 L 03/16/18 05:00 Intake & Output 03/15/18 03/16/18 03/16/18 18:59 06:59 18:59 Intake Total 1700 Output Total 250 300 240 Balance 1450 -300 -240 Weight 46.266 kg 46.266 kg Intake: IV 1700 Output: Urine 150 300 200 Uretheral (Clark) 200 Stool 40 Estimated Blood Loss 100 Other: Voiding Method Indwelling Catheter Indwelling Catheter Indwelling Catheter - Constitutional General appearance: Present: cooperative, no acute distress - EENT EENT Comment(s): NG LIS Eyes: Present: EOMI, PERRLA, dentition normal - Neck Details: supple, trachea midline Neck: Present: normal ROM - Respiratory Respiratory: bilateral: CTA (no increased effort) - Cardiovascular Rhythm: regular Heart sounds: normal: S1, S2 - Gastrointestinal Gastrointestinal Comment(s): Ostomy with pink stoma, CDI incision General gastrointestinal: Present: distended, soft - Integumentary Integumentary: Present: pale - Neurologic Neurologic Comment(s): No focal defects Neurologic: Present: CNII-XII intact - Musculoskeletal Musculoskeletal: Present: generalized weakness, strength equal bilaterally - Psychiatric Psychiatric: Present: A&O x's 3, appropriate affect, intact judgment & insight - Labs CBC & Chem 7: 03/16/18 07:13 03/16/18 07:13 Labs: Abnormal Lab Results - Last 24 Hours (Table) 03/15/18 03/15/18 03/16/18 Range/Units 15:12 15:12 07:13 WBC 13.6 H (3.8-10.6) k/uL RDW 16.4 H 16.2 H (11.5-15.5) % Neutrophils # 12.5 H (1.3-7.7) k/uL Lymphocytes # 0.5 L 0.4 L (1.0-4.8) k/uL Sodium (137-145) mmol/L Chloride 110 H (98-107) mmol/L Carbon Dioxide 18 L (22-30) mmol/L BUN 24 H (7-17) mg/dL Creatinine 0.50 L (0.52-1.04) mg/dL Glucose (74-99) mg/dL Calcium 7.9 L (8.4-10.2) mg/dL Phosphorus (2.5-4.5) mg/dL Total Protein (6.3-8.2) g/dL Albumin (3.5-5.0) g/dL 03/16/18 03/16/18 Range/Units 07:13 14:49 WBC (3.8-10.6) k/uL RDW (11.5-15.5) % Neutrophils # (1.3-7.7) k/uL Lymphocytes # (1.0-4.8) k/uL Sodium 136 L (137-145) mmol/L Chloride (98-107) mmol/L Carbon Dioxide (22-30) mmol/L BUN 20 H (7-17) mg/dL Creatinine (0.52-1.04) mg/dL Glucose 117 H (74-99) mg/dL Calcium 7.7 L (8.4-10.2) mg/dL Phosphorus 1.9 L (2.5-4.5) mg/dL Total Protein 3.9 L (6.3-8.2) g/dL Albumin 2.2 L (3.5-5.0) g/dL Assessment and Plan Plan: Assessment and Plan (1) Mass of colon Narrative/Plan: The CT AP and clinical presentation are most s/o a colon malignancy. She is presenting with obstruction, and has no evidence of metastatic disease by CT. Thus the next step in her management would be surgical resection, which would relieve the obstruction, provide surgical treatment, pathologic diagnosis, and staging. The pt and her family were advised re treatment guidelines post surgery based on stage. Based on presentation with obstruction, alone, chemo would be recommended, refardless of additional staging findings. Dr manley had a long discussion with patient and family and advised that any adjuvant treatment would not start till a minimum of at least 4 weeks post surgery. Status Post March 15, 2018 exploratory laparotomy, sigmoid colectomy, takedown of splenic flexure with ostomy due to a colon obstruction secondary to a sigmoid colon tumor - Will also order CT chest full initial staging. (will discuss with Dr. Manley to have completed while inpatient versus after discharge) - WIll have patient seen in office 3-4 weeks to further discuss treatment options and treatment start date - Await final Pathology - Pending Current Visit: Yes Status: Acute Code(s): K63.9 - DISEASE OF INTESTINE, UNSPECIFIED SNOMED Code(s): 558159581 (2) Bowel obstruction Narrative/Plan: The pt is undergoing NGT decompression. Defer to the surgical service re further management. - TPN to begin for Nutritional Current Visit: Yes Status: Acute Code(s): K56.609 - UNSP INTESTNL OBST, UNSP TO PARTIAL VERSUS COMPLETE OBST SNOMED Code(s): 58114045 Physician Attestation: I have completed the full history and physical of this patient and agree with above dictation by Erik Paz NP. Dictated as a scribe
[2018-03-16] MEDS: FAT EMULSION 20% 250 ML IV SCH (16:05)
[2018-03-16] MEDS: ROPIVACAINE 250 MG, HYDROMORPHONE (PF) 5 MG in SODIUM CHLORIDE 0.9% 200 ML EPIDURAL PRN (18:10)
[2018-03-17] MEDS: metroNIDAZOLE-NS PMX 500 MG in SALINE 1 100ML.BAG IVPB SCH ×3 (00:16→18:16)
[2018-03-17] MEDS: HEPARIN SODIUM,PORCINE 5,000 UNIT/ML 1 ML VIAL SQ SCH ×3 (00:25→16:02)
[2018-03-17] MEDS: D5-0.45% NACL WITH KCL 20MEQ/L 1,000 ML IV SCH ×3 (01:30→22:29)
[2018-03-17 02:57] LABS: Glucose,Whole Blood 117 mg/dL (75-99)
[2018-03-17 05:53] LABS: Glucose,Whole Blood 114 mg/dL (75-99)
[2018-03-17 07:07] LABS: Basophils % (A) 0 %; Eosinophils # (A) 0.1 k/uL (0-0.7); Eosinophils % (A) 1 %; HCT 33.7 % (34.0-46.0); HGB 10.8 gm/dL (11.4-16.0); Lymphocytes # (A) 0.6 k/uL (1.0-4.8); Lymphocytes % (A) 9 %; MCHC 32.2 g/dL (31.0-37.0); MCV 90.2 fL (80.0-100.0); Mean Platelet Volume 6.6; Monocytes # (A) 0.3 k/uL (0-1.0); Monocytes % (A) 5 %; Neutrophils # (A) 5.2 k/uL (1.3-7.7); Neutrophils % (A) 83 %; Platelet Count 290 k/uL (150-450); RBC 3.73 m/uL (3.80-5.40); RDW 15.9 % (11.5-15.5); WBC 6.2 k/uL (3.8-10.6)
[2018-03-17 07:22] LABS: Anion Gap 1 mmol/L; Blood Urea Nitrogen 16 mg/dL (7-17); Calcium 7.4 mg/dL (8.4-10.2); Carbon Dioxide 27 mmol/L (22-30); Chloride 106 mmol/L (98-107); Glucose 96 mg/dL (74-99); Magnesium 1.9 mg/dL (1.6-2.3); Phosphorus 1.9 mg/dL (2.5-4.5); Sodium 134 mmol/L (137-145)
--- NOTE | 2018-03-17 08:20 | P.PN ---
Progress Note - Text Progress Note Date: 03/17/18 Postoperative day #2 status post exp laparotomy/epidural catheter placed for postoperative analgesia, patient doing well epidural site okay, patient currently on combination of epidural infusion solution of Ropivacaine 0.0625% and Dilaudid 20 g per mL the infusion rate at 4 ml per hour , patient had no motor deficit epidural site okay , vital signs stable ,VAS 0 /10 , Assessment and plan= post operative day # 2 patient doing well ,pain well controlled , there is no anesthesia related complications (Patient was seen at 7:05 AM )
[2018-03-17] MEDS ORDERED: Phosphorus Replacement Protoco 1 EACH MISC MISCELLANE PRN (09:42)
[2018-03-17] MEDS: PANTOPRAZOLE 40 MG/10 ML VIAL IVP SCH (09:46)
[2018-03-17] MEDS: CEFEPIME 1 GM in SODIUM CHLORIDE 0.9% 50 ML IVPB SCH (09:46)
[2018-03-17] MEDS: FUROSEMIDE 10 MG/ML 2 ML VIAL IV SCH (09:47)
--- NOTE | 2018-03-17 10:58 | P.PN ---
Subjective Progress Note Date: 03/17/18 78-year-old female who is a in good state of health noted by the daughter has been losing weight for the last several week in spite of the high protein shake the symptoms have been progressive in the last 2 or 3 days she has significant abdominal distention as well as the severe constipation patient was brought into the emergency department and found to have the obstructive lesion in the sigmoid colon and severe degree of abdominal distention, general surgery has been consulted patient had the NG tube significant amount of gastric secretions were removed via suction however lately no significant output is present patient is otherwise awake and alert denies any pain but does have a feeling of distention 03/15/2018, postop day #0 patient status post resection of large sigmoid mass for details please refer to the note dictated by surgical services patient has a G-tube also has triple lumen catheter in the right internal jugular vein through which patient is getting TPN she is also on broad-spectrum antibiotics for anticipated micro-perforation my labs reviewed there is a leukocytosis present On 03/16/2018 patient is currently resting comfortably in bed postop day 1 status post resection of large sigmoid mass. Patient currently is epidural in place for pain control. Patient also his NG to LIS. Patient remains nothing by mouth per surgical. Patient denies chest pain or shortness of breath. Patient encouraged to continue to use incentive spirometer On 03/17/2018 patient is currently postop day 2 bowel resection. Epidural remained in place for pain control. Patient states she is comfortable at this time. NG in place to LIS. Patient currently is TPN and lipids ordered. Patient is using incentive spirometer. Patient denies chest pain or shortness of breath. Objective - Vital Signs Vital signs: Vital Signs Temp 98.6 F 03/17/18 07:30 Pulse 77 03/17/18 08:00 Resp 16 03/17/18 08:00 BP 99/51 03/17/18 07:30 Pulse Ox 91 L 03/17/18 07:30 Intake & Output 03/16/18 03/17/18 03/17/18 18:59 06:59 18:59 Intake Total 198.05 Output Total 280 100 650 Balance -280 98.05 -650 Weight 52 kg 56 kg Intake: Intake, IV Titration 73.05 Amount Ropivacaine 250 mg 73.05 Hydromorphone (Pf) 5 mg In Sodium Chloride 0.9% 200 ml @ Per Protocol EPIDURAL .Q0M PRN Rx#: [id number] Oral 125 Output: Urine 200 650 Uretheral (Clark) 200 650 Stool 80 100 Other: Voiding Method Indwelling Catheter Indwelling Catheter Indwelling Catheter - Exam Head normocephalic Neck supple Lungs clear to auscultation bilaterally no wheezing or crackles Heart regular rate and rhythm S1-S2, no rub or gallop Abdomen distended abdomen improved. Status post colostomy hypoactive bowel sounds Extremities no edema Neuro alert and orientated to 3 - Labs CBC & Chem 7: 03/17/18 06:46 03/17/18 06:46 Labs: Abnormal Lab Results - Last 24 Hours (Table) 03/16/18 03/17/18 03/17/18 Range/Units 14:49 02:55 05:45 RBC (3.80-5.40) m/uL Hgb (11.4-16.0) gm/dL Hct (34.0-46.0) % RDW (11.5-15.5) % Lymphocytes # (1.0-4.8) k/uL Sodium (137-145) mmol/L POC Glucose (mg/dL) 117 H 114 H (75-99) mg/dL Calcium (8.4-10.2) mg/dL Phosphorus 1.9 L (2.5-4.5) mg/dL 03/17/18 03/17/18 Range/Units 06:46 06:46 RBC 3.73 L (3.80-5.40) m/uL Hgb 10.8 L (11.4-16.0) gm/dL Hct 33.7 L (34.0-46.0) % RDW 15.9 H (11.5-15.5) % Lymphocytes # 0.6 L (1.0-4.8) k/uL Sodium 134 L (137-145) mmol/L POC Glucose (mg/dL) (75-99) mg/dL Calcium 7.4 L (8.4-10.2) mg/dL Phosphorus 1.9 L (2.5-4.5) mg/dL Assessment and Plan Assessment: 1. 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 Burroughs. Patient is postop day 1. Epidural remains in place for pain control. Patient remains nothing by mouth. Patient has a nasogastric tube LIS. Surgical services are following. Patient remains on TPN. 2. Sirs-like process likely microperforation on broad-spectrum antibiotic. Flagyl and Cefapime has been added. WBC 7.0 3. Severely dilated colon. Patient is status post bowel resection for obstructive sigmoid colon mass with colostomy 4. Elevated BNP related to passive hepatic congestion and preload. Home dose of Lasix ordered IV at this time 5. Generalized weakness medical debility and cachexia DVT prophylaxis heparin, GI prophylaxis Protonix Patient probably will require a designated computed tomography scan of the chest and PET scan on outpatient basis to look into liver nodule and lung density at the bases and for staging purposes, will be arranged as an outpatient setting I performed an examination of the patient and discussed their management with the Nurse Practitioner. I have reviewed the Nurse Practitioner's notes and agree with the documented findings and plan of care
[2018-03-17 11:53] LABS: Glucose,Whole Blood 144 mg/dL (75-99)
--- NOTE | 2018-03-17 12:16 | P.PN ---
Subjective Progress Note Date: 03/17/18 78-year-old female sitting up in bed. Epidural in place per anesthesia for pain control in which the patient reports is effective Nasogastric tube to suction patient is taking ice chips freely reports no nausea vomiting surgical tenderness appropriate ostomy left lower quadrant stoma pink scant amount of liquid brown secretions no new drainage noted to surgical dressing. Indwelling Clark catheter in place. postop day March 15 exploratory laparotomy, sigmoid colectomy, takedown of splenic flexure with ostomy due to a colon obstruction secondary to a sigmoid colon tumor Objective - Vital Signs Vital signs: Vital Signs Temp 98.6 F 03/17/18 07:30 Pulse 77 03/17/18 08:00 Resp 16 03/17/18 08:00 BP 99/51 03/17/18 07:30 Pulse Ox 91 L 03/17/18 07:30 Intake & Output 03/16/18 03/17/18 03/17/18 18:59 06:59 18:59 Intake Total 198.05 Output Total 280 100 650 Balance -280 98.05 -650 Weight 52 kg 56 kg Intake: Intake, IV Titration 73.05 Amount Ropivacaine 250 mg 73.05 Hydromorphone (Pf) 5 mg In Sodium Chloride 0.9% 200 ml @ Per Protocol EPIDURAL .Q0M PRN Rx#: [id number] Oral 125 Output: Urine 200 650 Uretheral (Clark) 200 650 Stool 80 100 Other: Voiding Method Indwelling Catheter Indwelling Catheter Indwelling Catheter - Labs CBC & Chem 7: 03/17/18 06:46 03/17/18 06:46 Labs: Abnormal Lab Results - Last 24 Hours (Table) 03/16/18 03/17/18 03/17/18 Range/Units 14:49 02:55 05:45 RBC (3.80-5.40) m/uL Hgb (11.4-16.0) gm/dL Hct (34.0-46.0) % RDW (11.5-15.5) % Lymphocytes # (1.0-4.8) k/uL Sodium (137-145) mmol/L POC Glucose (mg/dL) 117 H 114 H (75-99) mg/dL Calcium (8.4-10.2) mg/dL Phosphorus 1.9 L (2.5-4.5) mg/dL 03/17/18 03/17/18 03/17/18 Range/Units 06:46 06:46 11:51 RBC 3.73 L (3.80-5.40) m/uL Hgb 10.8 L (11.4-16.0) gm/dL Hct 33.7 L (34.0-46.0) % RDW 15.9 H (11.5-15.5) % Lymphocytes # 0.6 L (1.0-4.8) k/uL Sodium 134 L (137-145) mmol/L POC Glucose (mg/dL) 144 H (75-99) mg/dL Calcium 7.4 L (8.4-10.2) mg/dL Phosphorus 1.9 L (2.5-4.5) mg/dL Assessment and Plan Assessment: Impression Present on admission abdominal pain bloating constipation suspect due to colon Obstruction related to sigmoid colon tumor Status post exploratory laparotomy, sigmoid colectomy, takedown of splenic flexure due to a colon obstruction Mild protein calorie malnutrition underweight with poor muscle tone suspect due to poor caloric intake BMI 18 Plan start TPN for nutritional support defer to dietitian Continue epidural per anesthesia pain control Continue postop surgical care Encourage the use of an incentive spirometer Increase activity PT OT eval Await path report pending Continue recommendations by oncology clamp the nasogastric tube for 4 hours reconnect less than 200 remove Ostomy teaching to be initiated Discharge plan patient may benefit from subacute rehab DVT and GI prophylaxis The above impression and plan of care have been discussed and directed by signing physician. Soha Casas nurse practitioner acting as scribe for signing physician.
[2018-03-17] MEDS: SODIUM PHOSPHATE 10 MMOL in SODIUM CHLORIDE 0.9% 100 ML IVPB SCH ×2 (14:33→16:01)
--- NOTE | 2018-03-17 15:02 | P.PN ---
Subjective Progress Note Date: 03/17/18 Principal diagnosis: New Colon Cancer Patient seen and examined in follow-up today, She will be initiated on TPN for nutrition at this time per surgery. NG tube LIS Patient daughter at bedside and frustrated that the patient is not receiving more therapy to increase strength. Objective - Vital Signs Vital signs: Vital Signs Temp 98.6 F 03/17/18 07:30 Pulse 77 03/17/18 08:00 Resp 16 03/17/18 08:00 BP 99/51 03/17/18 07:30 Pulse Ox 91 L 03/17/18 07:30 Intake & Output 03/16/18 03/17/18 03/17/18 18:59 06:59 18:59 Intake Total 198.05 Output Total 046 349 4413 Balance -280 98.05 -1450 Weight 52 kg 56 kg Intake: Intake, IV Titration 73.05 Amount Ropivacaine 250 mg 73.05 Hydromorphone (Pf) 5 mg In Sodium Chloride 0.9% 200 ml @ Per Protocol EPIDURAL .Q0M PRN Rx#: [id number] Oral 125 Output: Urine 200 1450 Uretheral (Clark) 200 1450 Stool 80 100 Other: Voiding Method Indwelling Catheter Indwelling Catheter Indwelling Catheter - Constitutional General appearance: Present: cooperative, no acute distress, thin - EENT EENT Comment(s): NG tube LIS with Dark bile content Eyes: Present: EOMI, dentition normal, normal appearance ENT: Present: hard of hearing, NA/AT, normal oropharynx - Neck Details: Supple, Trachea MIdline Neck: Present: normal ROM - Respiratory Respiratory: bilateral: CTA - Cardiovascular Rhythm: regular Heart sounds: normal: S1, S2 - Gastrointestinal Gastrointestinal Comment(s): Ostomy with stool contents and pink stoma General gastrointestinal: Present: distended, soft - Integumentary Integumentary: Present: pale - Neurologic Neurologic Comment(s): No focal defects Neurologic: Present: CNII-XII intact - Musculoskeletal Musculoskeletal: Present: generalized weakness, strength equal bilaterally - Psychiatric Psychiatric: Present: A&O x's 3, appropriate affect, intact judgment & insight - Labs CBC & Chem 7: 03/17/18 06:46 03/17/18 06:46 Labs: Abnormal Lab Results - Last 24 Hours (Table) 03/16/18 03/17/18 03/17/18 Range/Units 14:49 02:55 05:45 RBC (3.80-5.40) m/uL Hgb (11.4-16.0) gm/dL Hct (34.0-46.0) % RDW (11.5-15.5) % Lymphocytes # (1.0-4.8) k/uL Sodium (137-145) mmol/L POC Glucose (mg/dL) 117 H 114 H (75-99) mg/dL Calcium (8.4-10.2) mg/dL Phosphorus 1.9 L (2.5-4.5) mg/dL 03/17/18 03/17/18 03/17/18 Range/Units 06:46 06:46 11:51 RBC 3.73 L (3.80-5.40) m/uL Hgb 10.8 L (11.4-16.0) gm/dL Hct 33.7 L (34.0-46.0) % RDW 15.9 H (11.5-15.5) % Lymphocytes # 0.6 L (1.0-4.8) k/uL Sodium 134 L (137-145) mmol/L POC Glucose (mg/dL) 144 H (75-99) mg/dL Calcium 7.4 L (8.4-10.2) mg/dL Phosphorus 1.9 L (2.5-4.5) mg/dL Assessment and Plan Plan: Assessment and Plan (1) Mass of colon Narrative/Plan: The CT AP and clinical presentation are most s/o a colon malignancy. She is presenting with obstruction, and has no evidence of metastatic disease by CT. Thus the next step in her management would be surgical resection, which would relieve the obstruction, provide surgical treatment, pathologic diagnosis, and staging. The pt and her family were advised re treatment guidelines post surgery based on stage. Based on presentation with obstruction, alone, chemo would be recommended, refardless of additional staging findings. Dr manley had a long discussion with patient and family and advised that any adjuvant treatment would not start till a minimum of at least 4 weeks post surgery. Status Post March 15, 2018 exploratory laparotomy, sigmoid colectomy, takedown of splenic flexure with ostomy due to a colon obstruction secondary to a sigmoid colon tumor - Will also order CT chest full initial staging. (will discuss with Dr. Manley to have completed while inpatient versus after discharge) - WIll have patient seen in office 3-4 weeks to further discuss treatment options and treatment start date - Await final Pathology - Pending Current Visit: Yes Status: Acute Code(s): K63.9 - DISEASE OF INTESTINE, UNSPECIFIED SNOMED Code(s): 820439726 (2) Bowel obstruction Narrative/Plan: The pt is undergoing NGT decompression. Defer to the surgical service re further management. - TPN to begin for Nutritional Current Visit: Yes Status: Acute Code(s): K56.609 - UNSP INTESTNL OBST, UNSP TO PARTIAL VERSUS COMPLETE OBST SNOMED Code(s): 76688129 Agree with increasing patients activity to decrease further muscle atrophy
[2018-03-17 15:09] LABS: Hemoglobin A1C 5.2 % (4.0-6.0)
[2018-03-17] MEDS: FAT EMULSION 20% 250 ML IV SCH (15:41)
[2018-03-17] MEDS: LACTATED RINGERS 1,000 ML IV SCH (15:48)
[2018-03-17 17:09] LABS: Glucose,Whole Blood 113 mg/dL (75-99)
[2018-03-17] MEDS: 1: MVI, ADULT NO.4 WITH VIT K 10 ML, TRACE (CONC-1ML/DOSE) 1 ML in AMINO ACID 5%-D15W+LY IV SCH ×3 (20:23)
[2018-03-18] MEDS: metroNIDAZOLE-NS PMX 500 MG in SALINE 1 100ML.BAG IVPB SCH ×3 (00:29→16:07)
[2018-03-18] MEDS: HEPARIN SODIUM,PORCINE 5,000 UNIT/ML 1 ML VIAL SQ SCH ×3 (00:30→16:24)
[2018-03-18 01:25] LABS: Glucose,Whole Blood 130 mg/dL (75-99)
[2018-03-18] MEDS: FAT EMULSION 20% 250 ML IV SCH (04:10)
[2018-03-18] MEDS: LACTATED RINGERS 1,000 ML IV SCH ×2 (04:14→15:39)
[2018-03-18] MEDS: D5-0.45% NACL WITH KCL 20MEQ/L 1,000 ML IV SCH ×3 (04:17→22:10)
[2018-03-18 05:50] LABS: Glucose,Whole Blood 122 mg/dL (75-99)
--- NOTE | 2018-03-18 07:14 | P.PN ---
Progress Note - Text 03/18 625am 78-year-old female status post exploratory lap. This postop day 3 with the solution running at 4 mL an hour she has VAS of 1. She has no motor or sensory deficit ambulating well. Epidural DC'd nurse informed
[2018-03-18 07:54] LABS: Basophils % (A) 0 %; Eosinophils # (A) 0.1 k/uL (0-0.7); Eosinophils % (A) 2 %; HCT 35.9 % (34.0-46.0); HGB 11.9 gm/dL (11.4-16.0); Lymphocytes # (A) 0.6 k/uL (1.0-4.8); Lymphocytes % (A) 9 %; MCH 29.3 pg (25.0-35.0); MCHC 33.1 g/dL (31.0-37.0); MCV 88.7 fL (80.0-100.0); Mean Platelet Volume 6.9; Monocytes # (A) 0.4 k/uL (0-1.0); Monocytes % (A) 5 %; Neutrophils # (A) 5.7 k/uL (1.3-7.7); Neutrophils % (A) 83 %; Platelet Count 307 k/uL (150-450); RBC 4.05 m/uL (3.80-5.40); RDW 15.9 % (11.5-15.5); WBC 6.9 k/uL (3.8-10.6)
[2018-03-18 08:05] LABS: Anion Gap 4 mmol/L; Blood Urea Nitrogen 14 mg/dL (7-17); Calcium 7.5 mg/dL (8.4-10.2); Carbon Dioxide 27 mmol/L (22-30); Chloride 103 mmol/L (98-107); Glucose 102 mg/dL (74-99); Magnesium 1.8 mg/dL (1.6-2.3); Phosphorus 2.4 mg/dL (2.5-4.5); Potassium 3.6 mmol/L (3.5-5.1); Sodium 134 mmol/L (137-145)
[2018-03-18] MEDS: PANTOPRAZOLE 40 MG/10 ML VIAL IVP SCH (09:49)
[2018-03-18 11:27] LABS: Glucose,Whole Blood 135 mg/dL (75-99)
--- NOTE | 2018-03-18 12:37 | P.PN ---
Subjective Progress Note Date: 03/18/18 78-year-old female who is a in good state of health noted by the daughter has been losing weight for the last several week in spite of the high protein shake the symptoms have been progressive in the last 2 or 3 days she has significant abdominal distention as well as the severe constipation patient was brought into the emergency department and found to have the obstructive lesion in the sigmoid colon and severe degree of abdominal distention, general surgery has been consulted patient had the NG tube significant amount of gastric secretions were removed via suction however lately no significant output is present patient is otherwise awake and alert denies any pain but does have a feeling of distention 03/15/2018, postop day #0 patient status post resection of large sigmoid mass for details please refer to the note dictated by surgical services patient has a G-tube also has triple lumen catheter in the right internal jugular vein through which patient is getting TPN she is also on broad-spectrum antibiotics for anticipated micro-perforation my labs reviewed there is a leukocytosis present On 03/16/2018 patient is currently resting comfortably in bed postop day 1 status post resection of large sigmoid mass. Patient currently is epidural in place for pain control. Patient also his NG to LIS. Patient remains nothing by mouth per surgical. Patient denies chest pain or shortness of breath. Patient encouraged to continue to use incentive spirometer On 03/17/2018 patient is currently postop day 2 bowel resection. Epidural remained in place for pain control. Patient states she is comfortable at this time. NG in place to LIS. Patient currently is TPN and lipids ordered. Patient is using incentive spirometer. Patient denies chest pain or shortness of breath. On 03/18/2018 patient is currently postop day 3 of bowel resection. Patient has had epidural and nasogastric tube removed. Patient does state she is comfortable at this time. Patient is currently on TPN and lipids. Patient has been started on full liquid diet per surgical services. Patient denies chest pain or shortness of breath at this time. Patient does state she has been up walking the halls and is using the incentive spirometer regularly. Objective - Vital Signs Vital signs: Vital Signs Temp 98.8 F 03/18/18 07:45 Pulse 75 03/18/18 07:45 Resp 16 03/18/18 07:45 BP 115/69 03/18/18 07:45 Pulse Ox 92 L 03/18/18 07:45 Intake & Output 03/17/18 03/18/18 03/18/18 18:59 06:59 18:59 Intake Total 200 1620 Output Total 1450 1600 Balance -1250 20 Weight 56 kg 48.5 kg 48.5 kg Intake: Intake, IV Titration 200 1540 Amount Amino Acid 5%-D15w+Lytes* 480 E* 1,000 ml @ 60 mls/hr IV .BY DURATION WILLAM Rx#: [id number] Fat Emulsion 20% 250 ml @ 160 20.833 mls/hr IV Q24H WILLAM Rx#:[id number] Lactated Ringers 1,000 ml 200 800 @ 100 mls/hr IV .Q10H WLILAM Rx#:[id number] metroNIDAZOLE-NS PMX 500 100 mg In Saline 1 100ml.bag @ 100 mls/hr IVPB Q8HR WILLAM Rx#:[id number] Oral 80 Output: Urine 1450 1600 Uretheral (Clark) 1450 1300 Other: Voiding Method Indwelling Catheter Indwelling Catheter - Exam Head normocephalic Neck supple Lungs clear to auscultation bilaterally no wheezing or crackles Heart regular rate and rhythm S1-S2, no rub or gallop Abdomen distended abdomen improved. Status post colostomy hypoactive bowel sounds Extremities no edema Neuro alert and orientated to 3 - Labs CBC & Chem 7: 03/18/18 07:23 03/18/18 07:23 Labs: Abnormal Lab Results - Last 24 Hours (Table) 03/17/18 03/18/18 03/18/18 Range/Units 16:57 01:24 05:49 RDW (11.5-15.5) % Lymphocytes # (1.0-4.8) k/uL Sodium (137-145) mmol/L Creatinine (0.52-1.04) mg/dL Glucose (74-99) mg/dL POC Glucose (mg/dL) 113 H 130 H 122 H (75-99) mg/dL Calcium (8.4-10.2) mg/dL Phosphorus (2.5-4.5) mg/dL 03/18/18 03/18/18 03/18/18 Range/Units 07:23 07:23 11:26 RDW 15.9 H (11.5-15.5) % Lymphocytes # 0.6 L (1.0-4.8) k/uL Sodium 134 L (137-145) mmol/L Creatinine 0.44 L (0.52-1.04) mg/dL Glucose 102 H (74-99) mg/dL POC Glucose (mg/dL) 135 H (75-99) mg/dL Calcium 7.5 L (8.4-10.2) mg/dL Phosphorus 2.4 L (2.5-4.5) mg/dL Assessment and Plan Assessment: 1. 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 Burroughs. Patient is postop day 3. Epidural remains in place for pain control. Patient remains nothing by mouth. Patient has a nasogastric tube LIS. Surgical services are following. Patient remains on TPN and lipids. Epidural and nasogastric tube have been. Patient has been placed on a full liquid diet persurgical services 2. Sirs-like process likely microperforation on broad-spectrum antibiotic. Flagyl and Cefapime has been added. WBC 7.0. Patient remains on Flagyl for antibiotics 3. Severely dilated colon. Patient is status post bowel resection for obstructive sigmoid colon mass with colostomy. Dr. Manley oncology is following. Per oncology adjuvant treatment with chemo would not start until minimal 4 weeks post surgery. Possible CT of chest will be ordered for initial staging per oncology considering inpatient versus outpatient. Patient to follow-up in oncology office in 3-4 weeks 4. Elevated BNP related to passive hepatic congestion and preload. Home dose of Lasix ordered IV at this time. Per daughter patient patient did not take Lasix regularly at home and was only on it temporarily and requesting Lasix to be discontinued. 5. Generalized weakness medical debility and cachexia DVT prophylaxis heparin, GI prophylaxis Protonix Patient probably will require a designated computed tomography scan of the chest and PET scan on outpatient basis to look into liver nodule and lung density at the bases and for staging purposes, will be arranged as an outpatient setting Per patient and family, planning for rehab in [facility] where daughter currently lives. I performed an examination of the patient and discussed their management with the Nurse Practitioner. I have reviewed the Nurse Practitioner's notes and agree with the documented findings and plan of care
[2018-03-18] MEDS: FUROSEMIDE 10 MG/ML 2 ML VIAL IV SCH (12:42)
[2018-03-18] MEDS ORDERED: Potassium Replacement Protocol 1 EACH MISC MISCELLANE PRN (13:02)
[2018-03-18] MEDS: 1: MVI, ADULT NO.4 WITH VIT K 10 ML, TRACE (CONC-1ML/DOSE) 1 ML in AMINO ACID 5%-D15W+LY IV SCH ×6 (15:46→22:07)
[2018-03-18] MEDS: POTASSIUM CHLORIDE 10 MEQ in WATER FOR INJECTION 1 100ML.BAG IVPB SCH ×2 (15:47→16:56)
[2018-03-18] MEDS ORDERED: RX INFO: IV CONTRAST WAS GIVEN 1 EACH MISC MISCELLANE PRN (15:57)
--- NOTE | 2018-03-18 15:59 | P.PN ---
Progress Note - Text Progress Note Date: 03/18/18 The patient is a well. She has minimal complaints of pain. She has minimal output through NG tube. On exam her vital signs are stable. Her abdomen soft. Patient will start her diet. Pathology was reviewed the patient. She is found have an obstruction due to diverticulitis.
[2018-03-18] MEDS ORDERED: SODIUM PHOSPHATE 10 MMOL in SODIUM CHLORIDE 0.9% 250 ML IVPB ONE (16:00)
[2018-03-18 16:58] LABS: Glucose,Whole Blood 122 mg/dL (75-99)
--- NOTE | 2018-03-18 19:43 | P.PN ---
Subjective Progress Note Date: 03/18/18 Principal diagnosis: New Colon Cancer Patient seen and examined in follow-up today, NG tube has been removed, her ostomy is active, she is tolerating full liquids. Her biopsy results showed benight colonic mucosa favoring diverticular disease, inflammation and hyperplastic. I have reviewed these finding with patient and family today in detsail Objective - Vital Signs Vital signs: Vital Signs Temp 98.8 F 03/18/18 14:58 Pulse 75 03/18/18 14:58 Resp 16 03/18/18 14:58 BP 138/76 03/18/18 14:58 Pulse Ox 95 03/18/18 14:58 Intake & Output 03/18/18 03/18/18 03/19/18 06:59 18:59 06:59 Intake Total 1620 1685 Output Total 1600 250 200 Balance 20 1435 -200 Weight 48.5 kg 48.5 kg Intake: Intake, IV Titration 1540 1085 Amount Amino Acid 5%-D15w+Lytes* 480 600 E* 1,000 ml @ 60 mls/hr IV .BY DURATION WILLAM Rx#: [id number] Fat Emulsion 20% 250 ml @ 160 160 20.833 mls/hr IV Q24H WILLAM Rx#:[id number] Lactated Ringers 1,000 ml 800 @ 100 mls/hr IV .Q10H WILLAM Rx#:[id number] Potassium Chloride 10 meq 100 In Water For Injection 1 100ml.bag @ 100 mls/hr IVPB Q1H WILLAM Rx#: [id number] Sodium Phosphate 10 mmol 125 In Sodium Chloride 0.9% 250 ml @ 125 mls/hr IVPB ONCE ONE Rx#:[id number] metroNIDAZOLE-NS PMX 500 100 100 mg In Saline 1 100ml.bag @ 100 mls/hr IVPB Q8HR WILLAM Rx#:[id number] Oral 80 600 Output: Urine 1600 Uretheral (Clark) 1300 Stool 250 200 Other: Voiding Method Indwelling Catheter Indwelling Catheter # Voids 3 - Constitutional General appearance: Present: cooperative, no acute distress, thin - EENT Eyes: Present: PERRLA, dentition normal ENT: Present: hard of hearing, NA/AT, normal oropharynx - Neck Details: Supple, trachea midline Neck: Present: normal ROM - Respiratory Respiratory: bilateral: CTA - Cardiovascular Rhythm: regular Heart sounds: normal: S1, S2 - Gastrointestinal Gastrointestinal Comment(s): Firm, Ostomy active, stoma pink General gastrointestinal: Present: distended, tenderness - Integumentary Integumentary: Present: pale - Neurologic Neurologic: Present: CNII-XII intact - Musculoskeletal Musculoskeletal: Present: generalized weakness, strength equal bilaterally - Labs CBC & Chem 7: 03/18/18 07:23 03/18/18 07:23 Labs: Abnormal Lab Results - Last 24 Hours (Table) 03/18/18 03/18/18 03/18/18 Range/Units 01:24 05:49 07:23 RDW (11.5-15.5) % Lymphocytes # (1.0-4.8) k/uL Sodium 134 L (137-145) mmol/L Creatinine 0.44 L (0.52-1.04) mg/dL Glucose 102 H (74-99) mg/dL POC Glucose (mg/dL) 130 H 122 H (75-99) mg/dL Calcium 7.5 L (8.4-10.2) mg/dL Phosphorus 2.4 L (2.5-4.5) mg/dL 03/18/18 03/18/18 03/18/18 Range/Units 07:23 11:26 16:55 RDW 15.9 H (11.5-15.5) % Lymphocytes # 0.6 L (1.0-4.8) k/uL Sodium (137-145) mmol/L Creatinine (0.52-1.04) mg/dL Glucose (74-99) mg/dL POC Glucose (mg/dL) 135 H 122 H (75-99) mg/dL Calcium (8.4-10.2) mg/dL Phosphorus (2.5-4.5) mg/dL Assessment and Plan Plan: Assessment and Plan (1) Mass of colon Narrative/Plan: The CT AP and clinical presentation are most s/o a colon malignancy. She is presenting with obstruction, and has no evidence of metastatic disease by CT. Thus the next step in her management would be surgical resection, which would relieve the obstruction, provide surgical treatment, pathologic diagnosis, and staging. The pt and her family were advised re treatment guidelines post surgery based on stage. Based on presentation with obstruction, alone, chemo would be recommended, refardless of additional staging findings. Dr trujillo had a long discussion with patient and family and advised that any adjuvant treatment would not start till a minimum of at least 4 weeks post surgery. Status Post March 15, 2018 exploratory laparotomy, sigmoid colectomy, takedown of splenic flexure with ostomy due to a colon obstruction secondary to a sigmoid colon tumor - Final Pathology shows benign process, no evidence of malignancy, likely diverticular etiology per report and inflammatory process. Current Visit: Yes Status: Acute Code(s): K63.9 - DISEASE OF INTESTINE, UNSPECIFIED SNOMED Code(s): 135576364 (2) Bowel obstruction Narrative/Plan: Status POst surgery, NG tube removed and tolerating fill liquids. Current Visit: Yes Status: Acute Code(s): K56.609 - UNSP INTESTNL OBST, UNSP TO PARTIAL VERSUS COMPLETE OBST SNOMED Code(s): 41569607 Agree with increasing patients activity to decrease further muscle atrophy We will sign off Time with Patient: Greater than 30 (All patient and family questioned answered. Reviewed with Dr. Charles along with patient)
[2018-03-18] MEDS ORDERED: POTASSIUM CHLORIDE ER 20 MEQ TAB.ER PO STA (20:44)
[2018-03-19] MEDS: metroNIDAZOLE-NS PMX 500 MG in SALINE 1 100ML.BAG IVPB SCH ×4 (00:04→23:19)
[2018-03-19 00:05] LABS: Glucose,Whole Blood 136 mg/dL (75-99)
[2018-03-19] MEDS: LACTATED RINGERS 1,000 ML IV SCH ×3 (00:05→15:39)
[2018-03-19] MEDS: HEPARIN SODIUM,PORCINE 5,000 UNIT/ML 1 ML VIAL SQ SCH ×4 (00:12→23:19)
[2018-03-19] MEDS: D5-0.45% NACL WITH KCL 20MEQ/L 1,000 ML IV SCH (06:09)
[2018-03-19 06:27] LABS: Glucose,Whole Blood 114 mg/dL (75-99)
[2018-03-19 07:26] LABS: Anion Gap 0 mmol/L; Blood Urea Nitrogen 16 mg/dL (7-17); Calcium 7.9 mg/dL (8.4-10.2); Carbon Dioxide 27 mmol/L (22-30); Chloride 108 mmol/L (98-107); Glucose 99 mg/dL (74-99); Magnesium 1.9 mg/dL (1.6-2.3); Phosphorus 2.6 mg/dL (2.5-4.5); Potassium 4.6 mmol/L (3.5-5.1); Sodium 135 mmol/L (137-145)
[2018-03-19] MEDS: PANTOPRAZOLE 40 MG/10 ML VIAL IVP SCH (07:57)
[2018-03-19] MEDS: FUROSEMIDE 10 MG/ML 2 ML VIAL IV SCH (07:58)
--- NOTE | 2018-03-19 08:51 | P.PN ---
Progress Note - Text Progress Note Date: 03/19/18 The patient up and healing. She denies any significant abdominal pain. She's had some issues with her colostomy bag leaking. On exam her vital signs are stable. Her abdomen is soft. Stoma is pink. Patient has had limited oral intake. We will continue TPN. She will be continually observed.
[2018-03-19 12:26] LABS: Glucose,Whole Blood 92 mg/dL (75-99)
--- NOTE | 2018-03-19 14:08 | P.PN ---
Subjective Progress Note Date: 03/19/18 78-year-old female who is a in good state of health noted by the daughter has been losing weight for the last several week in spite of the high protein shake the symptoms have been progressive in the last 2 or 3 days she has significant abdominal distention as well as the severe constipation patient was brought into the emergency department and found to have the obstructive lesion in the sigmoid colon and severe degree of abdominal distention, general surgery has been consulted patient had the NG tube significant amount of gastric secretions were removed via suction however lately no significant output is present patient is otherwise awake and alert denies any pain but does have a feeling of distention 03/15/2018, postop day #0 patient status post resection of large sigmoid mass for details please refer to the note dictated by surgical services patient has a G-tube also has triple lumen catheter in the right internal jugular vein through which patient is getting TPN she is also on broad-spectrum antibiotics for anticipated micro-perforation my labs reviewed there is a leukocytosis present On 03/16/2018 patient is currently resting comfortably in bed postop day 1 status post resection of large sigmoid mass. Patient currently is epidural in place for pain control. Patient also his NG to LIS. Patient remains nothing by mouth per surgical. Patient denies chest pain or shortness of breath. Patient encouraged to continue to use incentive spirometer On 03/17/2018 patient is currently postop day 2 bowel resection. Epidural remained in place for pain control. Patient states she is comfortable at this time. NG in place to LIS. Patient currently is TPN and lipids ordered. Patient is using incentive spirometer. Patient denies chest pain or shortness of breath. On 03/18/2018 patient is currently postop day 3 of bowel resection. Patient has had epidural and nasogastric tube removed. Patient does state she is comfortable at this time. Patient is currently on TPN and lipids. Patient has been started on full liquid diet per surgical services. Patient denies chest pain or shortness of breath at this time. Patient does state she has been up walking the halls and is using the incentive spirometer regularly. On 03/19/2018 patient is alert and oriented 3 in no apparent distress she is able to ambulate with help she is still has very poor oral intake and is maintained on TPN, pathology results reviewed and oncology note reviewed from yesterday. Objective - Vital Signs Vital signs: Vital Signs Temp 97.8 F 03/19/18 06:50 Pulse 77 03/19/18 06:50 Resp 18 03/19/18 06:50 BP 140/66 03/19/18 06:50 Pulse Ox 96 03/19/18 06:50 Intake & Output 03/18/18 03/19/18 03/19/18 18:59 06:59 18:59 Intake Total 2696 Output Total 250 950 400 Balance 2446 -950 -400 Weight 48.5 kg 46.5 kg Intake: Intake, IV Titration 2096 Amount Amino Acid 5%-D15w+Lytes* 600 E* 1,000 ml @ 60 mls/hr IV .BY DURATION [facility] Rx#: [id number] Fat Emulsion 20% 250 ml @ 160 20.833 mls/hr IV Q24H [facility] Rx#:[id number] Mvi, Adult No.4 with Vit 1011 K 10 ml Trace (Conc-1Ml/ Dose) 1 ml In Amino Acid 5%-D15w+Lytes*E* 1,000 ml @ 60 mls/hr IV .BY DURATION [facility] Rx#: [id number] Potassium Chloride 10 meq 100 In Water For Injection 1 100ml.bag @ 100 mls/hr IVPB Q1H [facility] Rx#: [id number] Sodium Phosphate 10 mmol 125 In Sodium Chloride 0.9% 250 ml @ 125 mls/hr IVPB ONCE ONE Rx#:[id number] metroNIDAZOLE-NS PMX 500 100 mg In Saline 1 100ml.bag @ 100 mls/hr IVPB Q8HR [facility] Rx#:[id number] Oral 600 Output: Stool 250 950 400 Other: Voiding Method Indwelling Catheter Toilet Toilet # Voids 3 1 - Exam Head normocephalic and atraumatic Neck supple no JVD no goiter Lungs clear to auscultation bilaterally no wheezing or crackles Heart regular rate and rhythm S1-S2, no rub or gallop Abdomen distended abdomen improved. Status post colostomy hypoactive bowel sounds Extremities no edema no cyanosis or clubbing Neuro alert and orientated to 3 - Labs CBC & Chem 7: 03/18/18 07:23 03/19/18 06:43 Labs: Abnormal Lab Results - Last 24 Hours (Table) 03/18/18 03/19/18 03/19/18 Range/Units 16:55 00:04 06:25 Sodium (137-145) mmol/L Chloride (98-107) mmol/L Creatinine (0.52-1.04) mg/dL POC Glucose (mg/dL) 122 H 136 H 114 H (75-99) mg/dL Calcium (8.4-10.2) mg/dL 03/19/18 Range/Units 06:43 Sodium 135 L (137-145) mmol/L Chloride 108 H (98-107) mmol/L Creatinine 0.36 L (0.52-1.04) mg/dL POC Glucose (mg/dL) (75-99) mg/dL Calcium 7.9 L (8.4-10.2) mg/dL Assessment and Plan Plan: 1. 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 Burroughs. Patient is postop day 3. Epidural remains in place for pain control. Patient remains nothing by mouth. Patient has a nasogastric tube LIS. Surgical services are following. Patient remains on TPN and lipids. Epidural and nasogastric tube have been. Patient has been placed on a full liquid diet persurgical services. Per oncology and pathology results obstruction was due to benign lesion secondary to inflammation and diverticulitis. No plans for any adjuvant therapy at this time. Oncology signed off the case. 2. Sirs-like process likely microperforation on broad-spectrum antibiotic. Flagyl and Cefapime has been added. WBC 7.0. Patient remains on Flagyl for antibiotics 3. Severely dilated colon. Patient is status post bowel resection for obstructive sigmoid colon mass with colostomy. Dr. Manley oncology is following. Per oncology adjuvant treatment with chemo would not start until minimal 4 weeks post surgery. Possible CT of chest will be ordered for initial staging per oncology considering inpatient versus outpatient. Patient to follow-up in oncology office in 3-4 weeks 4. Elevated BNP related to passive hepatic congestion and preload. Home dose of Lasix ordered IV at this time. Per daughter patient patient did not take Lasix regularly at home and was only on it temporarily and requesting Lasix to be discontinued. 5. Generalized weakness medical debility and cachexia DVT prophylaxis heparin, GI prophylaxis Protonix Patient probably will require a designated computed tomography scan of the chest and PET scan on outpatient basis to look into liver nodule and lung density at the bases and for staging purposes, will be arranged as an outpatient setting Per patient and family, planning for rehab in [facility] where daughter currently lives.
[2018-03-19] MEDS: FAT EMULSION 20% 250 ML IV SCH (15:39)
[2018-03-19] MEDS: 1: MVI, ADULT NO.4 WITH VIT K 10 ML, TRACE (CONC-1ML/DOSE) 1 ML in AMINO ACID 5%-D15W+LY IV SCH ×3 (15:39)
[2018-03-19 17:46] LABS: Glucose,Whole Blood 124 mg/dL (75-99)
[2018-03-19 23:57] LABS: Glucose,Whole Blood 114 mg/dL (75-99)
[2018-03-20 06:00] LABS: Glucose,Whole Blood 111 mg/dL (75-99)
[2018-03-20] MEDS: 1: MVI, ADULT NO.4 WITH VIT K 10 ML, TRACE (CONC-1ML/DOSE) 1 ML in AMINO ACID 5%-D15W+LY IV SCH ×9 (06:24→09:38)
[2018-03-20 07:11] LABS: Basophils % (A) 0 %; Eosinophils # (A) 0.2 k/uL (0-0.7); Eosinophils % (A) 3 %; HCT 38.3 % (34.0-46.0); HGB 12.5 gm/dL (11.4-16.0); Lymphocytes # (A) 0.9 k/uL (1.0-4.8); Lymphocytes % (A) 13 %; MCH 29.3 pg (25.0-35.0); MCHC 32.7 g/dL (31.0-37.0); MCV 89.5 fL (80.0-100.0); Mean Platelet Volume 7.3; Monocytes # (A) 0.4 k/uL (0-1.0); Monocytes % (A) 6 %; Neutrophils # (A) 5.1 k/uL (1.3-7.7); Neutrophils % (A) 76 %; Platelet Count 332 k/uL (150-450); RBC 4.28 m/uL (3.80-5.40); RDW 15.9 % (11.5-15.5); WBC 6.7 k/uL (3.8-10.6)
[2018-03-20 07:23] LABS: ALT 26 U/L (9-52); AST 22 U/L (14-36); Albumin 2.2 g/dL (3.5-5.0); Alkaline Phosphatase 63 U/L (38-126); Anion Gap 4 mmol/L; Blood Urea Nitrogen 13 mg/dL (7-17); Calcium 8.1 mg/dL (8.4-10.2); Carbon Dioxide 26 mmol/L (22-30); Chloride 106 mmol/L (98-107); Glucose 94 mg/dL (74-99); Magnesium 1.9 mg/dL (1.6-2.3); Phosphorus 3.3 mg/dL (2.5-4.5); Potassium 4.2 mmol/L (3.5-5.1); Sodium 136 mmol/L (137-145); Total Bilirubin 0.2 mg/dL (0.2-1.3); Total Protein 4.1 g/dL (6.3-8.2)
[2018-03-20] MEDS: metroNIDAZOLE-NS PMX 500 MG in SALINE 1 100ML.BAG IVPB SCH ×2 (07:45→16:21)
[2018-03-20] MEDS: HEPARIN SODIUM,PORCINE 5,000 UNIT/ML 1 ML VIAL SQ SCH ×2 (07:45→16:21)
[2018-03-20] MEDS: FUROSEMIDE 10 MG/ML 2 ML VIAL IV SCH (07:45)
[2018-03-20] MEDS: PANTOPRAZOLE 40 MG/10 ML VIAL IVP SCH (07:46)
--- NOTE | 2018-03-20 10:15 | P.PN ---
Progress Note - Text Progress Note Date: 03/20/18 The patient is resting comfortably in her bed. She has some mild incisional pain. Her colostomy is functioning. There is a large amount liquid stool in the colostomy. On exam her vital signs are stable. Her abdomen is soft. Status post Gregory procedure for colonic obstruction secondary to diverticulitis/ischemic colon. Patient is improving. We will stop the TPN today. We anticipate discharged to [facility] the next 48 hours.
[2018-03-20 12:19] LABS: Glucose,Whole Blood 113 mg/dL (75-99)
[2018-03-20] MEDS: LACTATED RINGERS 1,000 ML IV SCH (13:10)
--- NOTE | 2018-03-20 14:05 | P.PN ---
Subjective Progress Note Date: 03/20/18 78-year-old female who is a in good state of health noted by the daughter has been losing weight for the last several week in spite of the high protein shake the symptoms have been progressive in the last 2 or 3 days she has significant abdominal distention as well as the severe constipation patient was brought into the emergency department and found to have the obstructive lesion in the sigmoid colon and severe degree of abdominal distention, general surgery has been consulted patient had the NG tube significant amount of gastric secretions were removed via suction however lately no significant output is present patient is otherwise awake and alert denies any pain but does have a feeling of distention 03/15/2018, postop day #0 patient status post resection of large sigmoid mass for details please refer to the note dictated by surgical services patient has a G-tube also has triple lumen catheter in the right internal jugular vein through which patient is getting TPN she is also on broad-spectrum antibiotics for anticipated micro-perforation my labs reviewed there is a leukocytosis present On 03/16/2018 patient is currently resting comfortably in bed postop day 1 status post resection of large sigmoid mass. Patient currently is epidural in place for pain control. Patient also his NG to LIS. Patient remains nothing by mouth per surgical. Patient denies chest pain or shortness of breath. Patient encouraged to continue to use incentive spirometer On 03/17/2018 patient is currently postop day 2 bowel resection. Epidural remained in place for pain control. Patient states she is comfortable at this time. NG in place to LIS. Patient currently is TPN and lipids ordered. Patient is using incentive spirometer. Patient denies chest pain or shortness of breath. On 03/18/2018 patient is currently postop day 3 of bowel resection. Patient has had epidural and nasogastric tube removed. Patient does state she is comfortable at this time. Patient is currently on TPN and lipids. Patient has been started on full liquid diet per surgical services. Patient denies chest pain or shortness of breath at this time. Patient does state she has been up walking the halls and is using the incentive spirometer regularly. On 03/19/2018 patient is alert and oriented 3 in no apparent distress she is able to ambulate with help she is still has very poor oral intake and is maintained on TPN, pathology results reviewed and oncology note reviewed from yesterday. On 03/20/2018 patient is alert and oriented 3 in no apparent distress she is feeling well TPN was discontinued and she is starting to have more oral intake she has been able to ambulate she denies any chest pain or shortness of breath no cough no nausea or vomiting no abdominal pain and no urinary symptoms Objective - Vital Signs Vital signs: Vital Signs Temp 98.5 F 03/20/18 05:00 Pulse 71 03/20/18 05:00 Resp 18 03/20/18 05:00 BP 128/60 03/20/18 05:00 Pulse Ox 94 L 03/20/18 05:00 Intake & Output 03/19/18 03/20/18 03/20/18 18:59 06:59 18:59 Intake Total 2811 807 194 Output Total 725 600 Balance 2086 207 194 Weight 46 kg Intake: Intake, IV Titration 2010 667 194 Amount Amino Acid 5%-D15w+Lytes* 1000 E* 1,000 ml @ 60 mls/hr IV .BY DURATION [facility] Rx#: [id number] Fat Emulsion 20% 250 ml @ 167 20.833 mls/hr IV Q24H [facility] Rx#:[id number] Lactated Ringers 1,000 ml 400 @ 50 mls/hr IV .Q20H [facility] Rx#:[id number] Mvi, Adult No.4 with Vit 1011 194 K 10 ml Trace (Conc-1Ml/ Dose) 1 ml In Amino Acid 5%-D15w+Lytes*E* 1,000 ml @ 30 mls/hr IV .BY DURATION [facility] Rx#: [id number] metroNIDAZOLE-NS PMX 500 100 mg In Saline 1 100ml.bag @ 100 mls/hr IVPB Q8HR [facility] Rx#:[id number] Oral 800 140 Output: Stool 725 600 Other: Voiding Method Toilet Toilet Toilet # Voids 5 2 - Exam Head normocephalic and atraumatic Neck supple no JVD no goiter Lungs clear to auscultation bilaterally no wheezing or crackles Heart regular rate and rhythm S1-S2, no rub or gallop Abdomen distended abdomen improved. Status post colostomy hypoactive bowel sounds Extremities no edema no cyanosis or clubbing Neuro alert and orientated to 3 - Labs CBC & Chem 7: 03/20/18 06:44 03/20/18 06:44 Labs: Abnormal Lab Results - Last 24 Hours (Table) 03/19/18 03/19/18 03/20/18 Range/Units 17:45 23:56 05:59 RDW (11.5-15.5) % Lymphocytes # (1.0-4.8) k/uL Sodium (137-145) mmol/L Creatinine (0.52-1.04) mg/dL POC Glucose (mg/dL) 124 H 114 H 111 H (75-99) mg/dL Calcium (8.4-10.2) mg/dL Total Protein (6.3-8.2) g/dL Albumin (3.5-5.0) g/dL 03/20/18 03/20/18 03/20/18 Range/Units 06:44 06:44 12:17 RDW 15.9 H (11.5-15.5) % Lymphocytes # 0.9 L (1.0-4.8) k/uL Sodium 136 L (137-145) mmol/L Creatinine 0.37 L (0.52-1.04) mg/dL POC Glucose (mg/dL) 113 H (75-99) mg/dL Calcium 8.1 L (8.4-10.2) mg/dL Total Protein 4.1 L (6.3-8.2) g/dL Albumin 2.2 L (3.5-5.0) g/dL Assessment and Plan Plan: 1. 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 Burroughs. Patient is postop day 3. Epidural remains in place for pain control. Patient remains nothing by mouth. Patient has a nasogastric tube LIS. Surgical services are following. Patient remains on TPN and lipids. Epidural and nasogastric tube have been. Patient has been placed on a full liquid diet persurgical services. Per oncology and pathology results obstruction was due to benign lesion secondary to inflammation and diverticulitis. No plans for any adjuvant therapy at this time. Oncology signed off the case. 2. Sirs-like process likely microperforation on broad-spectrum antibiotic. Flagyl and Cefapime has been added. WBC 7.0. Patient remains on Flagyl for antibiotics 3. Severely dilated colon. Patient is status post bowel resection for obstructive sigmoid colon mass with colostomy. Dr. Manley oncology is following. Per oncology adjuvant treatment with chemo would not start until minimal 4 weeks post surgery. Possible CT of chest will be ordered for initial staging per oncology considering inpatient versus outpatient. Patient to follow-up in oncology office in 3-4 weeks 4. Elevated BNP related to passive hepatic congestion and preload. Home dose of Lasix ordered IV at this time. Per daughter patient patient did not take Lasix regularly at home and was only on it temporarily and requesting Lasix to be discontinued. 5. Generalized weakness medical debility and cachexia DVT prophylaxis heparin, GI prophylaxis Protonix Patient probably will require a designated computed tomography scan of the chest and PET scan on outpatient basis to look into liver nodule and lung density at the bases and for staging purposes, will be arranged as an outpatient setting Per patient and family, planning for rehab in [place] [facility] where daughter currently lives.
[2018-03-20 16:50] VITALS: RESP 16
[2018-03-20 17:40] LABS: Glucose,Whole Blood 91 mg/dL (75-99)
[2018-03-20] MEDS: FAT EMULSION 20% 250 ML IV SCH (17:40)
--- NOTE | 2018-03-20 18:41 | PN ---
PROGRESS NOTE She was seen again on 03/20/2018. She does not complain of any shortness of breath and is doing fair at this time. On physical examination: Vitals are stable. She is afebrile. Her chest is clear. Cardiovascular system reveals a S1, S2. Abdomen is soft. There is no edema. IMPRESSION: At this time: 1. Obstructive sigmoid colon mass status post resection. 2. Atelectatic changes for which she was recommended incentive spirometry and is only able to bring it up to 500. 3. Elevated BNP. I agree with diuresing and optimizing her fluid status. Her prognosis is fair. She was counseled regarding her condition. MMODL / IJN: [id number] /
[2018-03-21] MEDS: metroNIDAZOLE-NS PMX 500 MG in SALINE 1 100ML.BAG IVPB SCH ×4 (00:03→23:27)
[2018-03-21] MEDS: HEPARIN SODIUM,PORCINE 5,000 UNIT/ML 1 ML VIAL SQ SCH ×4 (00:03→23:27)
[2018-03-21 00:04] LABS: Glucose,Whole Blood 85 mg/dL (75-99)
[2018-03-21 06:12] LABS: Glucose,Whole Blood 130 mg/dL (75-99)
[2018-03-21 07:49] LABS: Anion Gap 2 mmol/L; Blood Urea Nitrogen 13 mg/dL (7-17); Calcium 7.8 mg/dL (8.4-10.2); Carbon Dioxide 25 mmol/L (22-30); Chloride 107 mmol/L (98-107); Glucose 81 mg/dL (74-99); Magnesium 1.7 mg/dL (1.6-2.3); Phosphorus 3.6 mg/dL (2.5-4.5); Sodium 134 mmol/L (137-145)
[2018-03-21 08:35] LABS: Basophils % (A) 0 %; Eosinophils # (A) 0.2 k/uL (0-0.7); Eosinophils % (A) 3 %; HCT 35.4 % (34.0-46.0); HGB 11.8 gm/dL (11.4-16.0); Lymphocytes # (A) 0.8 k/uL (1.0-4.8); Lymphocytes % (A) 15 %; MCH 29.8 pg (25.0-35.0); MCHC 33.4 g/dL (31.0-37.0); MCV 89.2 fL (80.0-100.0); Mean Platelet Volume 7.5; Monocytes # (A) 0.4 k/uL (0-1.0); Monocytes % (A) 8 %; Neutrophils # (A) 4.2 k/uL (1.3-7.7); Neutrophils % (A) 73 %; Platelet Count 353 k/uL (150-450); RBC 3.96 m/uL (3.80-5.40); RDW 15.9 % (11.5-15.5); WBC 5.7 k/uL (3.8-10.6)
[2018-03-21] MEDS: PANTOPRAZOLE 40 MG/10 ML VIAL IVP SCH (08:47)
[2018-03-21] MEDS: FUROSEMIDE 10 MG/ML 2 ML VIAL IV SCH (11:05)
[2018-03-21] MEDS ORDERED: Magnesium Replacement Protocol 1 EACH MISC MISCELLANE PRN (11:06)
--- NOTE | 2018-03-21 11:14 | P.PN ---
Subjective Progress Note Date: 03/21/18 78-year-old female who is a in good state of health noted by the daughter has been losing weight for the last several week in spite of the high protein shake the symptoms have been progressive in the last 2 or 3 days she has significant abdominal distention as well as the severe constipation patient was brought into the emergency department and found to have the obstructive lesion in the sigmoid colon and severe degree of abdominal distention, general surgery has been consulted patient had the NG tube significant amount of gastric secretions were removed via suction however lately no significant output is present patient is otherwise awake and alert denies any pain but does have a feeling of distention 03/15/2018, postop day #0 patient status post resection of large sigmoid mass for details please refer to the note dictated by surgical services patient has a G-tube also has triple lumen catheter in the right internal jugular vein through which patient is getting TPN she is also on broad-spectrum antibiotics for anticipated micro-perforation my labs reviewed there is a leukocytosis present On 03/16/2018 patient is currently resting comfortably in bed postop day 1 status post resection of large sigmoid mass. Patient currently is epidural in place for pain control. Patient also his NG to LIS. Patient remains nothing by mouth per surgical. Patient denies chest pain or shortness of breath. Patient encouraged to continue to use incentive spirometer On 03/17/2018 patient is currently postop day 2 bowel resection. Epidural remained in place for pain control. Patient states she is comfortable at this time. NG in place to LIS. Patient currently is TPN and lipids ordered. Patient is using incentive spirometer. Patient denies chest pain or shortness of breath. On 03/18/2018 patient is currently postop day 3 of bowel resection. Patient has had epidural and nasogastric tube removed. Patient does state she is comfortable at this time. Patient is currently on TPN and lipids. Patient has been started on full liquid diet per surgical services. Patient denies chest pain or shortness of breath at this time. Patient does state she has been up walking the halls and is using the incentive spirometer regularly. On 03/19/2018 patient is alert and oriented 3 in no apparent distress she is able to ambulate with help she is still has very poor oral intake and is maintained on TPN, pathology results reviewed and oncology note reviewed from yesterday. On 03/20/2018 patient is alert and oriented 3 in no apparent distress she is feeling well TPN was discontinued and she is starting to have more oral intake she has been able to ambulate she denies any chest pain or shortness of breath no cough no nausea or vomiting no abdominal pain and no urinary symptoms On 03/21/2018 patient is alert and oriented 3. Patient states she is feeling improved. Patient is currently up walking the halls. Patient is tolerating full liquid diet. Patient denies chest pain or shortness breath. Patient denies nausea, vomiting, and diarrhea. Denies urinary symptoms Objective - Vital Signs Vital signs: Vital Signs Temp 97.8 F 03/21/18 05:00 Pulse 74 03/21/18 05:00 Resp 16 03/21/18 05:00 BP 116/59 03/21/18 05:00 Pulse Ox 95 03/21/18 05:00 Intake & Output 03/20/18 03/21/18 03/21/18 18:59 06:59 18:59 Intake Total 765 740 Output Total 400 2 100 Balance 365 738 -100 Weight 45 kg Intake: Intake, IV Titration 365 500 Amount Lactated Ringers 1,000 ml 400 @ 50 mls/hr IV .Q20H [facility] Rx#:[id number] Mvi, Adult No.4 with Vit 365 K 10 ml Trace (Conc-1Ml/ Dose) 1 ml In Amino Acid 5%-D15w+Lytes*E* 1,000 ml @ 15 mls/hr IV .BY DURATION [facility] Rx#: [id number] metroNIDAZOLE-NS PMX 500 100 mg In Saline 1 100ml.bag @ 100 mls/hr IVPB Q8HR [facility] Rx#:[id number] Oral 400 240 Output: Urine 2 Stool 400 100 Other: Voiding Method Toilet Toilet - Exam Head normocephalic Neck supple Lungs clear to auscultation bilaterally no wheezing or crackles Heart regular rate and rhythm S1-S2, no rub or gallop Abdomen distended abdomen improved. Status post colostomy hypoactive bowel sounds Extremities no edema Neuro alert and orientated to 3 - Labs CBC & Chem 7: 03/21/18 06:55 03/21/18 06:55 Labs: Abnormal Lab Results - Last 24 Hours (Table) 03/20/18 03/21/18 03/21/18 Range/Units 12:17 06:11 06:55 RDW (11.5-15.5) % Lymphocytes # (1.0-4.8) k/uL Sodium 134 L (137-145) mmol/L Creatinine 0.41 L (0.52-1.04) mg/dL POC Glucose (mg/dL) 113 H 130 H (75-99) mg/dL Calcium 7.8 L (8.4-10.2) mg/dL 03/21/18 Range/Units 06:55 RDW 15.9 H (11.5-15.5) % Lymphocytes # 0.8 L (1.0-4.8) k/uL Sodium (137-145) mmol/L Creatinine (0.52-1.04) mg/dL POC Glucose (mg/dL) (75-99) mg/dL Calcium (8.4-10.2) mg/dL Assessment and Plan Assessment: 1. 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 Burroughs. Patient is postop day 3. Epidural remains in place for pain control. Patient remains nothing by mouth. Patient has a nasogastric tube LIS. Surgical services are following. Patient remains on TPN and lipids. Epidural and nasogastric tube have been removed.. Patient has been placed on a full liquid diet persurgical services. Per oncology final pathology shows benign process, no evidence of malignancy, likely diverticular etiology per report an inflammatory process. 2. Sirs-like process likely microperforation on broad-spectrum antibiotic. Flagyl and Cefapime has been added. WBC 7.0. Patient remains on Flagyl for antibiotics 3. Severely dilated colon. Patient is status post bowel resection for obstructive sigmoid colon mass with colostomy. Dr. Manley oncology is following. Per oncology adjuvant treatment with chemo would not start until minimal 4 weeks [address] surgery[address] CT of chest will be ordered for initial staging per oncology considering inpatient versus outpatient. Patient to follow-up in oncology office in 3-4 weeks 4. Elevated BNP related to passive hepatic congestion and preload. Home dose of Lasix ordered IV at this time. Per daughter patient patient did not take Lasix regularly at home and was only on it temporarily and requesting Lasix to be discontinued. IV Lasix is have been readmitted per pulmonary services. 5. Generalized weakness medical debility and cachexia DVT prophylaxis heparin, GI prophylaxis Protonix Patient probably will require a designated computed tomography scan of the chest and PET scan on outpatient basis to look into liver nodule and lung density at the bases and for staging purposes, will be arranged as an outpatient setting Patient and family have decided on rehab in [facility]. Patient to decide between [facility], [facility] or [facility]. I performed an examination of the patient and discussed their management with the Nurse Practitioner. I have reviewed the Nurse Practitioner's notes and agree with the documented findings and plan of care
[2018-03-21] MEDS: LACTATED RINGERS 1,000 ML IV SCH (11:17)
[2018-03-21 11:18] VITALS: BMI 17.5
[2018-03-21] MEDS: MAGNESIUM SULFATE-D5W PMX 1 GM in DEXTROSE/WATER 1 100ML.BAG IVPB SCH ×2 (12:05→13:12)
--- NOTE | 2018-03-21 16:00 | P.PN ---
Progress Note - Text Progress Note Date: 03/21/18 The patient is resting comfortably in bed. She's had increased oral intake. Her colostomy is functioning. On exam her vital signs are stable. Her abdomen soft. There is a large amount liquid stool classic. Patient will have her central line removed today. We will place a peripheral IV. Her diet will be advanced as tolerated. Dr. Leone will be rounding for myself..
[2018-03-22] MEDS: LACTATED RINGERS 1,000 ML IV SCH (06:47)
[2018-03-22 07:23] VITALS: BP 129/76; PULSE 67; TEMP 98.1
[2018-03-22 07:24] LABS: Basophils % (A) 0 %; Eosinophils # (A) 0.2 k/uL (0-0.7); Eosinophils % (A) 3 %; HCT 35.9 % (34.0-46.0); HGB 11.9 gm/dL (11.4-16.0); Lymphocytes # (A) 0.9 k/uL (1.0-4.8); Lymphocytes % (A) 14 %; MCH 29.5 pg (25.0-35.0); MCHC 33.1 g/dL (31.0-37.0); Mean Platelet Volume 7.3; Monocytes # (A) 0.6 k/uL (0-1.0); Monocytes % (A) 9 %; Neutrophils # (A) 4.4 k/uL (1.3-7.7); Neutrophils % (A) 72 %; Platelet Count 371 k/uL (150-450); RBC 4.03 m/uL (3.80-5.40); RDW 15.8 % (11.5-15.5); WBC 6.2 k/uL (3.8-10.6)
[2018-03-22 07:39] LABS: Anion Gap 3 mmol/L; Blood Urea Nitrogen 13 mg/dL (7-17); Calcium 7.6 mg/dL (8.4-10.2); Carbon Dioxide 27 mmol/L (22-30); Chloride 107 mmol/L (98-107); Glucose 83 mg/dL (74-99); Phosphorus 3.3 mg/dL (2.5-4.5); Potassium 3.8 mmol/L (3.5-5.1); Sodium 137 mmol/L (137-145)
[2018-03-22] MEDS ORDERED: Potassium Replacement Protocol 1 EACH MISC MISCELLANE PRN (07:42)
[2018-03-22] MEDS ORDERED: POTASSIUM CHLORIDE ER 20 MEQ TAB.ER PO SCH (08:00)
[2018-03-22] MEDS: metroNIDAZOLE-NS PMX 500 MG in SALINE 1 100ML.BAG IVPB SCH (08:06)
[2018-03-22] MEDS: PANTOPRAZOLE 40 MG/10 ML VIAL IVP SCH (08:06)
[2018-03-22] MEDS: HEPARIN SODIUM,PORCINE 5,000 UNIT/ML 1 ML VIAL SQ SCH ×2 (08:06→16:20)
[2018-03-22] MEDS: FUROSEMIDE 10 MG/ML 2 ML VIAL IV SCH (08:07)
[2018-03-22] MEDS ORDERED: FUROSEMIDE 20 MG TAB PO SCH (12:00)
--- NOTE | 2018-03-22 12:43 | P.DS ---
Providers Date of admission: 03/14/18 15:57 Expected date of discharge: 03/22/18 Attending physician: Ashish Rothman Consults: 03/14/18 15:50 Consult Physician Stat Consulting Provider: Reji Burroughs Consult Reason/Comments: Sigmoid mass causing bowel obstruction Do you want consulting provider notified?: Yes Consult Physician Stat Consulting Provider: Alexander Manley Consult Reason/Comments: sigmoid mass Do you want consulting provider notified?: Yes Primary care physician: Ana Aburto Hospital Course: Discharge diagnosis 1. 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 Burroughs. Patient is postop day 4. Per oncology final pathology shows benign process, no evidence of malignancy, likely diverticular etiology per report and inflammatory process. 2. Sirs-like process likely microperforation on broad-spectrum antibiotic. Continue Flagyl for 10 more days 3. Severely dilated colon. Patient is status post bowel resection for obstructive sigmoid colon mass with colostomy. 4. Elevated BNP related to passive hepatic congestion and preload. Recommend continuing Lasix 20 mg by mouth daily. This also help with the lower extremity edema 5. Generalized weakness medical debility and cachexia 6. Severe protein calorie malnutrition recommend protein supplements. Albumin level 2.2 is also could be contributing to patient's lower extremity edema Hospital course 78-year-old female who is a in good state of health noted by the daughter has been losing weight for the last several week in spite of the high protein shake the symptoms have been progressive in the last 2 or 3 days she has significant abdominal distention as well as the severe constipation patient was brought into the emergency department and found to have the obstructive lesion in the sigmoid colon and severe degree of abdominal distention, general surgery has been consulted patient had the NG tube significant amount of gastric secretions were removed via suction however lately no significant output is present patient is otherwise awake and alert denies any pain but does have a feeling of distention 03/15/2018, postop day #0 patient status post resection of large sigmoid mass for details please refer to the note dictated by surgical services patient has a G-tube also has triple lumen catheter in the right internal jugular vein through which patient is getting TPN she is also on broad-spectrum antibiotics for anticipated micro-perforation my labs reviewed there is a leukocytosis present On 03/16/2018 patient is currently resting comfortably in bed postop day 1 status post resection of large sigmoid mass. Patient currently is epidural in place for pain control. Patient also his NG to LIS. Patient remains nothing by mouth per surgical. Patient denies chest pain or shortness of breath. Patient encouraged to continue to use incentive spirometer On 03/17/2018 patient is currently postop day 2 bowel resection. Epidural remained in place for pain control. Patient states she is comfortable at this time. NG in place to LIS. Patient currently is TPN and lipids ordered. Patient is using incentive spirometer. Patient denies chest pain or shortness of breath. On 03/18/2018 patient is currently postop day 3 of bowel resection. Patient has had epidural and nasogastric tube removed. Patient does state she is comfortable at this time. Patient is currently on TPN and lipids. Patient has been started on full liquid diet per surgical services. Patient denies chest pain or shortness of breath at this time. Patient does state she has been up walking the halls and is using the incentive spirometer regularly. On 03/19/2018 patient is alert and oriented 3 in no apparent distress she is able to ambulate with help she is still has very poor oral intake and is maintained on TPN, pathology results reviewed and oncology note reviewed from yesterday. On 03/20/2018 patient is alert and oriented 3 in no apparent distress she is feeling well TPN was discontinued and she is starting to have more oral intake she has been able to ambulate she denies any chest pain or shortness of breath no cough no nausea or vomiting no abdominal pain and no urinary symptoms Patient has been cleared by consulting physicians for discharge on 03/21/2018. She is tolerating a regular diet. H&H and had exploratory laparotomy with sigmoid colectomy and takedown of splenic flexure due to a colonic obstruction secondary to sigmoid colon tumor. Surgery was completed on 03/15/2018. Pathology report was benign and there was no evidence of any malignancy. Patient was seen by oncology during this admission and no further treatment is required since the tumor was benign. The tumor was due to likely a diverticular etiology per report and inflammatory process. Patient has done well after surgery. She has tolerated advancement of diet. She has been cleared by surgical services for discharge. She'll continue to monitor days of the Flagyl. Also during this admission she was placed on Lasix due to some lower extremity edema and hepatic congestion. There is no evidence of CHF exacerbation. I would recommend that she stays on Lasix 20 mg orally daily. Also patient will be going home with a walker and home care. I performed an examination of the patient and discussed their management with the physician Geoscience Professor. I have reviewed the Physician Geoscience Professor's notes and agree with the documented findings and plan of care Patient Condition at Discharge: Stable Plan - Discharge Summary Discharge Rx Participant: Yes New Discharge Prescriptions: New Furosemide [Lasix] 20 mg PO DAILY #30 tab metroNIDAZOLE [Flagyl] 500 mg PO TID #30 tab Continue buPROPion HCL [Wellbutrin SR] 150 mg PO DAILY Potassium Chloride [K-Tab ER] 10 meq PO DAILY Discontinued Furosemide [Lasix] 20 mg PO DAILY Discharge Medication List Potassium Chloride [K-Tab ER] 10 meq PO DAILY 03/14/18 [History] buPROPion HCL [Wellbutrin SR] 150 mg PO DAILY 03/14/18 [History] Furosemide [Lasix] 20 mg PO DAILY #30 tab 03/22/18 [Rx] metroNIDAZOLE [Flagyl] 500 mg PO TID #30 tab 03/22/18 [Rx] Follow up Appointment(s)/Referral(s): Ana Aburto DO [Primary Care Provider] - 03/29/18 1:30 pm Reji Burroughs MD [STAFF PHYSICIAN] - 03/31/18 2:30 pm Patient Instructions/Handouts: Colostomy Care (DC), Colostomy Care (GEN) Activity/Diet/Wound Care/Special Instructions: Colostomy Care Instructions: Last pouching system change: 03.21.2018 Current ostomy care products sent with patient for discharge as follows: One piece cut to fit with filter #[id number] (Mrs Devine has four to transfer to Rehab) No Sting Prep Pads (14 with pt form transition) Ostomy Powder around stoma if needed (one bottle) Mrs Devine is to empty the ostomy pouch when it is 1/2 to 1/3 full in the toilet Mrs Devine is to change the pouching system every 3-5 days with assistiance. Once the joselito to the abdominal incision are removed as per the surgeon's discharge instructions the osotmy appliance can be applied over the staple line Rehab please set up Mrs Devine with disposable pouching system if possible in 3 weeks or once the bowel contents become more semi formed if possible Diet: Regular Activity: as tolerated Discharge Disposition: HOME WITH HOME HEALTH SERVICES
--- NOTE | 2018-03-22 13:18 | P.PN ---
<Soha Casas M - Last Filed: 03/22/18 13:09> Subjective Progress Note Date: 03/22/18 78-year-old female seen this morning sitting up in a chair patient reports that the ostomy was changed by her this morning hahad 2 bowel movements soft nondistended states taking plain Tylenol effective for pain control. states anxious to be discharged home. Patient states that she's to go home with home care Abdomen soft nondistended surgical tenderness appropriate. Ostomy in the left lower quadrant moderate amount of stool in the ostomy bag states urinating with no difficulty Objective - Vital Signs Vital signs: Vital Signs Temp 98.1 F 03/22/18 07:02 Pulse 67 03/22/18 07:02 Resp 16 03/22/18 07:02 BP 129/76 03/22/18 07:02 Pulse Ox 95 03/22/18 07:02 Intake & Output 03/21/18 03/22/18 03/22/18 18:59 06:59 18:59 Intake Total 600 720 Output Total 100 100 Balance 500 720 -100 Weight 45 kg 46 kg Intake: IV 600 Lactated Ringers 1,000 ml 600 @ 50 mls/hr IV .Q20H WILLAM Rx#:[id number] Intake, IV Titration 600 Amount Lactated Ringers 1,000 ml 200 @ 50 mls/hr IV .Q20H WILLAM Rx#:[id number] Magnesium Sulfate-D5w Pmx 200 1 gm In Dextrose/Water 1 100ml.bag @ 100 mls/hr IVPB Q1H WILLAM Rx#: [id number] metroNIDAZOLE-NS PMX 500 200 mg In Saline 1 100ml.bag @ 100 mls/hr IVPB Q8HR WILLAM Rx#:[id number] Oral 120 Output: Stool 100 100 Other: Voiding Method Toilet - Exam Physical exam 70-year-old female sitting up in a chair appears in no acute distress pleasant cooperative oriented 3 Lungs adequate air movement bilaterally abdomen Heart S1-S2 audible Abdomen nondistended surgical dressing dry ostomy left lower quadrant bowel sounds present to bowel movements this morning no difficulty in urinating nausea no vomiting tolerating diet Extremities no edema - Labs CBC & Chem 7: 03/22/18 07:00 03/22/18 07:00 Labs: Abnormal Lab Results - Last 24 Hours (Table) 03/22/18 03/22/18 Range/Units 07:00 07:00 RDW 15.8 H (11.5-15.5) % Lymphocytes # 0.9 L (1.0-4.8) k/uL Creatinine 0.42 L (0.52-1.04) mg/dL Calcium 7.6 L (8.4-10.2) mg/dL Assessment and Plan Assessment: Impression Present on admission abdominal pain bloating constipation suspect due to colon Obstruction related to sigmoid colon tumor Status post exploratory laparotomy, sigmoid colectomy, takedown of splenic flexure due to a colon obstruction Mild protein calorie malnutrition underweight with poor muscle tone suspect due to poor caloric intake BMI 18 Plan From a surgical perspective is felt to be appropriate to be discharged Continue postop surgical care DVT and GI prophylaxis Soha Casas dictating a progress note for Dr. lawton rounding on behalf of dr peck The above impression and plan of care have been discussed and directed by signing physician. Soha Casas nurse practitioner acting as scribe for signing physician. <Keshawn Lawton - Last Filed: 03/22/18 16:17> Objective - Vital Signs Vital signs: Vital Signs Temp 98.1 F 03/22/18 07:02 Pulse 67 03/22/18 07:02 Resp 16 03/22/18 07:02 BP 129/76 03/22/18 07:02 Pulse Ox 95 03/22/18 07:02 Intake & Output 03/21/18 03/22/18 03/22/18 18:59 06:59 18:59 Intake Total 600 720 Output Total 100 100 Balance 500 720 -100 Weight 45 kg 46 kg Intake: IV 600 Lactated Ringers 1,000 ml 600 @ 50 mls/hr IV .Q20H WILLAM Rx#:[id number] Intake, IV Titration 600 Amount Lactated Ringers 1,000 ml 200 @ 50 mls/hr IV .Q20H WILLAM Rx#:[id number] Magnesium Sulfate-D5w Pmx 200 1 gm In Dextrose/Water 1 100ml.bag @ 100 mls/hr IVPB Q1H WILLAM Rx#: [id number] metroNIDAZOLE-NS PMX 500 200 mg In Saline 1 100ml.bag @ 100 mls/hr IVPB Q8HR WILLAM Rx#:[id number] Oral 120 Output: Stool 100 100 Other: Voiding Method Toilet - Labs CBC & Chem 7: 08/14/18 07:00 03/22/18 07:00 Labs: Abnormal Lab Results - Last 24 Hours (Table) 03/22/18 03/22/18 Range/Units 07:00 07:00 RDW 15.8 H (11.5-15.5) % Lymphocytes # 0.9 L (1.0-4.8) k/uL Creatinine 0.42 L (0.52-1.04) mg/dL Calcium 7.6 L (8.4-10.2) mg/dL Assessment and Plan Assessment: As above. Patient doing well today. Anticipate discharge later today.
--- NOTE | 2018-03-22 13:47 | P.PN ---
Progress Note - Text Progress Note Date: 03/22/18 Pt is s/p exploratory laparotomy with sigmoid colectomy and takedown of splenic flexture with Dr. Burroughs. Thankfully, the mass was pathologically benign. Pt does not require further work up or treatment from an Oncology standpoint. We are always available for any future needs.
[2018-03-22] MEDS ORDERED: metroNIDAZOLE 500 MG TAB PO SCH (16:00)
[2018-03-23] MEDS ORDERED: PANTOPRAZOLE 40 MG TABLET PO SCH (07:30)
== END 2018-03-22 18:23 | disposition home health service (06) | DRG 329 ==
LOC: EC 10:50 → 5ONC 15:57
PROVIDERS: ADMIT Internal Medicine Sleep Medicine; ATTEND Internal Medicine Sleep Medicine
PROC: 0D1L074 Bypass Transverse Colon to Cutaneous with Autologous Tissue Substitute, Open Approach (ICD-10-PCS; 2018-03-15)
PROC: 0DBN0ZZ Excision of Sigmoid Colon, Open Approach (ICD-10-PCS; principal; 2018-03-15 11:25)
DX: K57.20 Diverticulitis of large intestine with perforation and abscess without bleeding (principal); E43 Unspecified severe protein-calorie malnutrition; K56.609 Unspecified intestinal obstruction, unspecified as to partial versus complete obstruction; K59.39 Other megacolon; R18.8 Other ascites; R64 Cachexia; R65.10 Systemic inflammatory response syndrome (SIRS) of non-infectious origin without acute organ dysfunction; Z68.1 Body mass index [BMI] 19.9 or less, adult; F17.200 Nicotine dependence, unspecified, uncomplicated; K76.1 Chronic passive congestion of liver; Z82.49 Family history of ischemic heart disease and other diseases of the circulatory system; Z98.49 Cataract extraction status, unspecified eye; Z83.79 Family history of other diseases of the digestive system
CPT/HCPCS: 36415; 43753; 71046; 74177; 80048; 80053; 81001; 82330; 82378; 83036; 83735; 83880; 84100; 84132; 84478; 85025; 85610; 88307; 88313; 93005; 99285

== ENCOUNTER → 2018-04-30 | Outpatient (CLI) | payer MEDICARE ==
--- NOTE | 2018-05-02 07:06 | PE ---
EXAMINATION TYPE: PET CT fusion whole body DATE OF EXAM: 04/30/2018 CLINICAL HISTORY: 78-year-old female initial staging unknown primary. Patient with elevated CA-125 an d history of prior colostomy. TECHNIQUE: Following the intravenous administration of 10.4 mCi of F-18 FDG, whole body images are performed from the skull vertex to the midthigh. Additional images extending to the bilateral lower e xtremities. Images are reviewed on the computer in the coronal, axial, and sagittal planes. Reconst ructed rotating images are created on independent workstation and reviewed on the computer. A local ization and attenuation correction CT is performed in conjunction with the PET scan. Glucose level: 89 mg/dL CTDI: 1.88 & 1.44 mGy DLP: 211.19 & 109.43 mGy-cm COMPARISON: Correlation CT abdomen and pelvis 03/14/2020. FINDINGS: PET: Physiologic uptake within the head and neck. Redemonstrated 7.2 cm cystic lesion in the right cardiophrenic recess. This shows no FDG uptake and i s most compatible with a pericardial cyst. Physiologic FDG uptake within the chest. Average liver SUV 1.4. Status post distal colonic resection with left abdominal colostomy and Guadalupe's pouch. The residual colon shows moderate circumferential wall thickening and corresponding diffuse intense FDG uptake, ma x SUV 19.4. Additional intense uptake at the level of the Guadalupe's pouch, max SUV 15.9. The remainder of the rectum has a more normal uptake except for a small focus along the posterior wal l of the distal rectum that had focal borderline moderate uptake, max SUV 3.6. No discrete CT correla te at this level. There is residual stool distended the lower rectum up to 7.4 cm wide. The lack of IV contrast and anasarca type changes limits assessment for abdominal lymphadenopathy. No suspicious FDG uptake within the mesentery or retroperitoneum. Physiologic FDG uptake within the bilateral lower extremities. ATTENUATION CORRECTION CT: Visualized intracranial structures show no hydrocephalus, mass effect, or midline shift. Paranasal sinuses and mastoid air cells are clear. No cervical adenopathy. Heart borderline enlarged without pericardial effusion. Coronary vessel calcifications are present wi th mild mitral and aortic valvular calcifications as well. Aorta normal caliber with conventional ar ch vessel branching anatomy and scattered mild to moderate atherosclerotic calcifications. 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 Mild diffuse bronchial wall thickening with mild emphysematous change and biapical pleural parenchymal scarring. Strandy atelecta sis at the inferior lingula and mild dependent atelectasis. No consolidation or pleural effusion. No thoracic lymphadenopathy by CT size criteria. 6 mm dependent gallstone. Moderate atherosclerotic calcifications within the infrarenal abdominal aor ta and iliac arteries. There is mild diffuse anasarca-type change. No dilated small bowel, free fluid , or free air. Bladder nondistended. Uterus and ovaries not clearly delineated from adjacent bowel loops. No abnorma l fluid collection in the pelvis. Bilateral distal lower extremities. No suspicious osseous or soft tissue lesion. Bones: Degenerative changes about the hips and lower lumbar spine. No osseous destructive process see n. IMPRESSION: 1. Status post mid sigmoid resection with left-sided abdominal colostomy. 2. The residual colon shows moderate wall thickening and diffuse, very intense FDG uptake. Correlate for colitis. 3. Additional very intense uptake at the level of the patient's Guadalupe's pouch could represent addit ional level of colitis. 4. The distal rectum shows normal FDG uptake except for a small focus of borderline moderate uptake a long the posterior wall. This may be physiologic but given the focality, recommend direct visualizati on to exclude a small polyp/mucosal lesion here. 5. Incidental: COPD with mild emphysema, 7.2 cm pericardial cyst, cholelithiasis, diffuse anasarca, and residual stool within the excluded distal rectum distending it up to 7.4 cm wide.
== END | disposition home or self-care (01) ==
LOC: RADPETMAIN 14:31
PROVIDERS: ATTEND Family Medicine
DX: K63.89 Other specified diseases of intestine (principal); R97.1 Elevated cancer antigen 125 [CA 125]; K82.8 Other specified diseases of gallbladder; J43.9 Emphysema, unspecified; K80.20 Calculus of gallbladder without cholecystitis without obstruction; R60.1 Generalized edema; I31.8 Other specified diseases of pericardium; Z98.890 Other specified postprocedural states; Z90.49 Acquired absence of other specified parts of digestive tract
CPT/HCPCS: 78816; A9552

== ENCOUNTER 2018-05-20 14:34 | Emergency (ER) | payer MEDICARE ==
[2018-05-20 15:03] VITALS: BP 126/58; PULSE 72; RESP 18; TEMP 97.9
--- NOTE | 2018-05-20 16:22 | ED ---
Abdominal Pain HPI - General Chief Complaint: Abdominal Pain Stated Complaint: post op-colon problems Time Seen by Provider: 05/20/18 15:19 Source: patient, RN notes reviewed, old records reviewed Mode of arrival: ambulatory Limitations: no limitations - History of Present Illness Initial Comments: This is a 70-year-old female the ER for wound recheck. Patient currently denying any abdominal pain during any significant symptomatic complaints. Medical history is positive for colon resection with ostomy, patient at this point is having continued increasing signs are ostomy site, this is concerning to her this 2 days. Patient has no other complaints MD Complaint: other (Increasing size of ostomy site) -: days(s) (2) Location: epigastric Migration to: no migration Severity scale (1-10): 0 Improves With: nothing Worsens With: nothing Associated Symptoms: denies other symptoms - Related Data Home Medications Medication Instructions Recorded Confirmed No Known Home Medications 05/20/18 05/20/18 Allergies Allergy/AdvReac Type Severity Reaction Status Date / Time No Known Allergies Allergy Verified 05/20/18 15:44 Review of Systems ROS Statement: Those systems with pertinent positive or pertinent negative responses have been documented in the HPI. ROS Other: All systems not noted in ROS Statement are negative. Past Medical History Past Medical History: No Reported History Additional Past Medical History / Comment(s): cataracts(sx), bladder infection 4 years ago, anxiety, diverticulitis History of Any Multi-Drug Resistant Organisms: None Reported Past Surgical History: Bowel Resection Additional Past Surgical History / Comment(s): colostomy, cataracts. Past Anesthesia/Blood Transfusion Reactions: No Reported Reaction Past Psychological History: Anxiety, Depression Smoking Status: Current every day smoker Past Alcohol Use History: None Reported Past Drug Use History: None Reported - Past Family History Father Family Medical History: Myocardial Infarction ([place]) Additional Family Medical History / Comment(s): from cardiac carrest at age77 Mother Additional Family Medical History / Comment(s): divertiuclar disease- from sepsis General Exam - General Exam Comments Initial Comments: Ostomy site appears clean and intact no signs of cellulitis or infection, Limitations: no limitations General appearance: alert, in no apparent distress Head exam: Present: atraumatic, normocephalic, normal inspection Eye exam: Present: normal appearance, PERRL, EOMI. Absent: scleral icterus, conjunctival injection, periorbital swelling ENT exam: Present: normal exam, mucous membranes moist Neck exam: Present: normal inspection. Absent: tenderness, meningismus, lymphadenopathy Respiratory exam: Present: normal lung sounds bilaterally. Absent: respiratory distress, wheezes, rales, rhonchi, stridor Cardiovascular Exam: Present: regular rate, normal rhythm, normal heart sounds. Absent: systolic murmur, diastolic murmur, rubs, gallop, clicks GI/Abdominal exam: Present: soft, normal bowel sounds. Absent: distended, tenderness, guarding, rebound, rigid Extremities exam: Present: normal inspection, full ROM, normal capillary refill. Absent: tenderness, pedal edema, joint swelling, calf tenderness Back exam: Present: normal inspection Neurological exam: Present: alert, oriented X3, CN II-XII intact Psychiatric exam: Present: normal affect, normal mood Skin exam: Present: warm, dry, intact, normal color. Absent: rash Course Vital Signs 05/20/18 14:58 Temperature 97.9 F Pulse Rate 72 Respiratory 18 Rate Blood Pressure 126/58 O2 Sat by Pulse 99 Oximetry - Reevaluation(s) Reevaluation #1: 05/20/18 16:[address] Burroughs regarding patient, aware patient in emergency room, to see patient in office on Wednesday Medical Decision Making - Medical Decision Making 78 female the ER for recheck of ostomy site, patient will follow-up with Dr. Haskins nephrostomy site check on Wednesday Disposition Clinical Impression: Post-op bleeding Narrative: Wound Post Ostomy Site Recheck Disposition: HOME SELF-CARE Condition: Good Instructions: Normal Exam (ED) Is patient prescribed a controlled substance at d/c from ED?: No Referrals: Ana Aburto DO [Primary Care Provider] - 1-2 days
== END 2018-05-20 16:28 | disposition home or self-care (01) ==
LOC: EC 14:34
DX: K91.840 Postprocedural hemorrhage of a digestive system organ or structure following a digestive system procedure (principal); F17.200 Nicotine dependence, unspecified, uncomplicated; Z90.49 Acquired absence of other specified parts of digestive tract; Z93.3 Colostomy status; Z83.79 Family history of other diseases of the digestive system
CPT/HCPCS: 99284

== ENCOUNTER → 2018-05-27 | Outpatient (CLI) | payer MEDICARE ==
[2018-05-27 14:47] LABS: HCT 40.6 % (34.0-46.0); HGB 13.1 gm/dL (11.4-16.0); MCH 29.1 pg (25.0-35.0); MCHC 32.4 g/dL (31.0-37.0); MCV 89.7 fL (80.0-100.0); Mean Platelet Volume 6.9; Platelet Count 370 k/uL (150-450); RBC 4.52 m/uL (3.80-5.40); WBC 7.6 k/uL (3.8-10.6)
== END | disposition home or self-care (01) ==
LOC: LABWHC1 13:16
PROVIDERS: ATTEND Surgery
DX: Z01.818 Encounter for other preprocedural examination (principal); K57.33 Diverticulitis of large intestine without perforation or abscess with bleeding; Z01.812 Encounter for preprocedural laboratory examination
CPT/HCPCS: 36415; 80051; 85027; 93005

== ENCOUNTER 2018-06-02 07:44 | Day surgery (SDC) | payer MEDICARE ==
[2018-05-31 13:42] VITALS: BMI 17.9
[~2018-06-02 07:44] MED LIST: LACTATED RINGERS 1,000 ML IV SCH
[2018-06-02 08:10] VITALS: TEMP 97.9
[2018-06-02] MEDS ORDERED: LIDOCAINE 1% 20 ML VIAL (10MG/ML) FOR IV START INTRADERMA ONE (08:21)
[2018-06-02] MEDS ORDERED: LIDOCAINE 1% INJ 10MG/ML (20 ML MDV) ONE (08:53)
[2018-06-02] MEDS ORDERED: PROPOFOL 10 MG/ML 20 ML VIAL IV ONE (08:53)
--- NOTE | 2018-06-02 08:57 | P.GSHP ---
History of Present Illness H&P Date: 06/02/18 Chief Complaint: History of perforated diverticulitis This a 70-year-old female who has a history of perforated diverticulitis. Patient's colostomy in the left lower quadrant. She's had issues with significant prolapse of her colostomy. Patient presents today for colonoscopy with possible reversal of colostomy in the a.m. Past Medical History Past Medical History: No Reported History Additional Past Medical History / Comment(s): small amount of redness around stoma/colostomy,benign mass-bowel obstruction ,bladder infection 4 years ago,diverticulitis,varicose veins History of Any Multi-Drug Resistant Organisms: None Reported Past Surgical History: Bowel Resection Additional Past Surgical History / Comment(s): colostomy, cataracts. Past Anesthesia/Blood Transfusion Reactions: No Reported Reaction Smoking Status: Former smoker - Past Family History Father Family Medical History: Myocardial Infarction ([place]) Additional Family Medical History / Comment(s): from cardiac arrest Mother Additional Family Medical History / Comment(s): divertiuclar disease- from sepsis Medications and Allergies Home Medications Medication Instructions Recorded Confirmed Type Lactose-Reduced Food [Ensure Plus] 1 can PO BID 06/01/18 06/01/18 History Allergies Allergy/AdvReac Type Severity Reaction Status Date / Time No Known Allergies Allergy Verified 05/31/18 13:22 Surgical - Exam Vital Signs Temp Pulse Resp BP Pulse Ox 97.9 F 73 18 119/56 98 06/02/18 08:07 06/02/18 08:07 06/02/18 08:07 06/02/18 08:07 06/02/18 08:07 - General well developed, no distress - Eyes PERRL - ENT normal pinna - Neck no masses - Respiratory normal expansion - Cardiovascular Rhythm: regular - Abdomen Colostomy is evidence of prolapse and left lower quadrant Abdomen: soft, non tender Assessment and Plan Assessment: History of perforated reticularis.. We'll perform colonoscopy.
[2018-06-02] MEDS ORDERED: NA PHOS,M-B/NA PHOS,DI-BA 133 ML ENEMA RECTAL STA (09:14)
--- NOTE | 2018-06-02 09:14 | P.OP ---
Date of Procedure: 06/02/18 Preoperative Diagnosis: Perforated diverticulitis Postoperative Diagnosis: History of perforated diverticulitis Procedure(s) Performed: Colonoscopy Anesthesia: MAC Surgeon: Reji Burroughs Pathology: none sent Condition: stable Disposition: PACU Description of Procedure: The patient's placed on the endoscopy table in the lateral position. She received IV sedation. Digital rectal exam was performed which revealed a large hard stool ball the rectal vault. The flexible colonoscope was then placed patient anus and passed through the rectal stump. The stump measured approximately 15 cm in length. Next the patient was rotated in her back. The colonoscope was placed through the colostomy. The right colon was not visualized due to tortuosity the bowel. Several times made to maneuver the colonoscope hours and possible. Scope was withdrawn. The transverse colon and remaining descending colon had a few scattered diverticula. Scope was then withdrawn through the colostomy.
[2018-06-02 09:16] VITALS: RESP 16
[2018-06-02 09:35] VITALS: BP 129/61; PULSE 68
[2018-06-02] MEDS ORDERED: NA PHOS,M-B/NA PHOS,DI-BA 133 ML ENEMA RECTAL ONE (10:13)
== END 2018-06-02 11:07 | disposition home or self-care (01) ==
LOC: ORWHC2ENDO 07:44
PROVIDERS: ATTEND Surgery
DX: K57.30 Diverticulosis of large intestine without perforation or abscess without bleeding (principal); Z87.19 Personal history of other diseases of the digestive system; Z43.3 Encounter for attention to colostomy; Z90.49 Acquired absence of other specified parts of digestive tract; I83.90 Asymptomatic varicose veins of unspecified lower extremity; Z79.899 Other long term (current) drug therapy; Z87.891 Personal history of nicotine dependence
CPT/HCPCS: 44388; 45330; J2001; J2704; 45378

== ENCOUNTER 2018-06-03 12:15 | Inpatient (IN) | payer MEDICARE ==
[~2018-06-03 12:15] MED LIST changes: +DEXAMETHASONE SOD PHOSPHATE 10 MG/ML 1 ML VIAL IV ONE; +HYDROmorphone 0.5 MG/0.5 ML SYRINGE IVP PRN; -LACTATED RINGERS 1,000 ML IV SCH; +LIDOCAINE 1% 20 ML VIAL (10MG/ML) FOR IV START INTRADERMA PRN; +ONDANSETRON 4 MG/2 ML VIAL IVP ONE; +ceFAZolin IN SWFI 2 GM/20 ML SYRINGE IVP ONE; +metroNIDAZOLE-NS PMX 500 MG in SALINE 1 100ML.BAG IVPB ONE
[2018-06-03] MEDS: LACTATED RINGERS 1,000 ML IV SCH (12:56)
[2018-06-03] MEDS ORDERED: ACETAMINOPHEN TAB 500 MG TAB PO STA (13:39)
[2018-06-03] MEDS ORDERED: ALVIMOPAN 12 MG CAPSULE PO ONE (13:39)
[2018-06-03] MEDS ORDERED: MIDAZOLAM 2 MG/2 ML VIAL IVP ONE (14:05)
--- NOTE | 2018-06-03 14:06 | P.GSHP ---
History of Present Illness H&P Date: 06/03/18 Chief Complaint: History of perforated diverticulitis This is a 78-year-old female who presents for reversal of colostomy. Patient history of diverticulitis. She underwent heart procedure with end colostomy approximately 8 weeks ago. Patient's had issues with prolapse of her colostomy. She presents today for reversal of colostomy. Patient aware the risks of surgery including recurrent colostomy, anastomotic leak, wound infection and bleeding. Past Medical History Past Medical History: No Reported History Additional Past Medical History / Comment(s): small amount of redness around stoma/colostomy,benign mass-bowel obstruction ,bladder infection 4 years ago,diverticulitis,varicose veins History of Any Multi-Drug Resistant Organisms: None Reported Past Surgical History: Bowel Resection Additional Past Surgical History / Comment(s): colostomy, cataracts. Past Anesthesia/Blood Transfusion Reactions: No Reported Reaction Additional Past Anesthesia/Blood Transfusion Reaction / Comment(s): no hx of problems with prior blood transfusion(1963) Smoking Status: Former smoker - Past Family History Father Family Medical History: Myocardial Infarction ([place]) Additional Family Medical History / Comment(s): from cardiac arrest Mother Additional Family Medical History / Comment(s): divertiuclar disease- from sepsis Brother(s) Family Medical History: Cancer Sister(s) Family Medical History: Coronary Artery Disease (CAD) Medications and Allergies Home Medications Medication Instructions Recorded Confirmed Type Lactose-Reduced Food [Ensure Plus] 1 can PO BID 06/01/18 06/03/18 History Allergies Allergy/AdvReac Type Severity Reaction Status Date / Time No Known Allergies Allergy Verified 06/03/18 12:36 Surgical - Exam Vital Signs Temp Pulse Resp BP Pulse Ox 98.0 F 77 16 135/67 97 06/03/18 12:55 06/03/18 12:55 06/03/18 12:55 06/03/18 12:55 06/03/18 12:55 - General well developed, no distress - Eyes PERRL - ENT normal pinna - Neck no masses - Respiratory normal expansion - Cardiovascular Rhythm: regular - Abdomen Abdomen: soft, non tender Assessment and Plan Assessment: History of perforated diverticulitis. We'll perform reversal of colostomy
[2018-06-03] MEDS ORDERED: HEPARIN SODIUM,PORCINE 5,000 UNIT/ML 1 ML VIAL SQ ONE (14:17)
[2018-06-03] MEDS ORDERED: HYDROmorphone (PF) 1 MG/ML ONE (14:37)
[2018-06-03] MEDS ORDERED: PROPOFOL 10 MG/ML 20 ML VIAL IV ONE (14:37)
[2018-06-03] MEDS ORDERED: ROCURONIUM BROMIDE 10 MG/ML 10 ML VIAL IV ONE (14:37)
[2018-06-03] MEDS ORDERED: SUCCINYLCHOLINE CHLORIDE 100 MG/5 ML SYR IV ONE (14:37)
[2018-06-03] MEDS ORDERED: NEOSTIGMINE 1 MG/ML 10 ML VIAL ONE (14:37)
[2018-06-03] MEDS ORDERED: PHENYLEPHRINE-0.9% NACL SYG 1 MG/10 ML SYRINGE ONE (14:37)
[2018-06-03] MEDS ORDERED: ePHEDrine SULFATE/0.9% NACL/PF 50 MG/5 ML SYRINGE IV ONE (14:37)
[2018-06-03] MEDS ORDERED: LIDOCAINE 1% INJ 10MG/ML (20 ML MDV) ONE (14:37)
[2018-06-03] MEDS ORDERED: GLYCOPYRROLATE 0.2 MG/ML 2 ML VIAL ONE (14:37)
[2018-06-03] MEDS ORDERED: fentaNYL (PF) 50 MCG/ML 2 ML AMP ONE (14:37)
[2018-06-03] MEDS ORDERED: MIDAZOLAM 2 MG/2 ML VIAL ONE (14:37)
[2018-06-03] MEDS ORDERED: LACTATED RINGERS 1,000 ML IV ONE ×2 (15:56)
[2018-06-03] MEDS ORDERED: HYDROmorphone 1 MG/ML 1 ML SYRINGE IVP PRN (16:04)
[2018-06-03] MEDS ORDERED: BENZOCAINE/MENTHOL LOZENG 1 EACH LOZENGE MUCOUS MEM PRN (16:04)
[2018-06-03] MEDS ORDERED: ONDANSETRON 4 MG/2 ML VIAL IVP PRN (16:04)
[2018-06-03] MEDS ORDERED: METOCLOPRAMIDE 5 MG/ML 2 ML VIAL IVP PRN (16:04)
--- NOTE | 2018-06-03 16:10 | P.OP ---
Date of Procedure: 06/03/18 Preoperative Diagnosis: History of Perforated diverticulitis Postoperative Diagnosis: History of perforated diverticulitis Procedure(s) Performed: Takedown of splenic flexure Reversal of colostomy Anesthesia: DIANNA Surgeon: Reji Burroughs Pathology: other (Left colon, splenic flexure) Condition: stable Disposition: PACU Description of Procedure: Patient's placed on the operative table in the supine position. She received general anesthesia. Her abdomen was prepped and draped in usual sterile fashion. She was placed in dorsal lithotomy position. The abdomen was entered through a midline incision. There were adhesions encountered on the abdominal wall these were lysed with sharp dissection. The Leksell wound protector was placed into the incision. The Bookwalter tract with placed in the wound. The colostomy was transected at the fascial level using the GI stapler. The rectal stump was visualized. At this point the splenic flexure was taken down and then the distal transverse colon was transected using the GI stapler. The mesentery the bowel was divided using the Enseal device. The pursestring device placed onto the proximal colon. And then the colon was opened and a 25 mm EEA stapler anvil was placed into the colon. The pursestring was secured. The 25 mm EEA stapler was then placed the patient's anus and then the splenic was driven through the anterior rectal wall just distal to the previous staple line. The anvil was connected to the stapler. Stapler is then closed and fired. The stapler was withdrawn. 2 intact tissue rings were withdrawn for stapler. A bowel clamp was placed across the colon just proximal to the anastomosis. And then the colon was insufflated with air via a rigid sigmoidoscope. There is no evidence of extravasation. The abdomen was irrigated. The retractors were withdrawn. Using clean instruments the fascia was closed with looped PDS suture. Skin was closed joselito. Next the colostomy site was dissected. The colostomy was withdrawn. And then the fascial defect was closed with 0 Vicryl suture. Skin was closed joselito. Patient thought procedure well.
[2018-06-03] MEDS ORDERED: NALOXONE 0.4 MG/ML 1 ML VIAL IV PRN (16:13)
[2018-06-03] MEDS: ROPIVACAINE 250 MG, HYDROMORPHONE (PF) 5 MG in SODIUM CHLORIDE 0.9% 200 ML EPIDURAL PRN (17:29)
[2018-06-03 18:57] LABS: Anion Gap 9 mmol/L; Blood Urea Nitrogen 15 mg/dL (7-17); Carbon Dioxide 23 mmol/L (22-30); Chloride 106 mmol/L (98-107); Glucose 133 mg/dL (74-99); Potassium 3.7 mmol/L (3.5-5.1); Sodium 138 mmol/L (137-145)
[2018-06-03] MEDS: FAMOTIDINE 20 MG/2 ML VIAL IV SCH (21:38)
[2018-06-03] MEDS: ALVIMOPAN 12 MG CAPSULE PO SCH (21:38)
[2018-06-03] MEDS: D5-0.45% NACL WITH KCL 20MEQ/L 1,000 ML IV SCH (21:38)
[2018-06-04] MEDS: D5-0.45% NACL WITH KCL 20MEQ/L 1,000 ML IV SCH ×3 (04:49→20:34)
[2018-06-04] MEDS: LACTATED RINGERS 1,000 ML IV SCH (05:42)
--- NOTE | 2018-06-04 09:36 | P.PN ---
Progress Note - Text Progress Note Date: 06/04/18 The patient's postoperative day 1 from reversal of colostomy. Patient resting comfortably in her bed. She denies any significant pain. On exam her vital signs are stable. Her abdomen soft. Incision site is clean dry intact. Patient will continue clear liquid diet.
[2018-06-04] MEDS: FAMOTIDINE 20 MG/2 ML VIAL IV SCH ×2 (10:41→20:38)
[2018-06-04] MEDS: ALVIMOPAN 12 MG CAPSULE PO SCH ×2 (10:41→20:37)
--- NOTE | 2018-06-04 13:20 | P.CONS ---
History of Present Illness - Reason for Consult Consult date: 06/04/18 Medical management while hospitalized - History of Present Illness Soha Devine is a 78-year-old female patient of Dr. Ana Aburto who was admitted to [facility] on 03/14/2018 at that time she had distal sigmoid obstructing mass with colon obstruction and dilatation she underwent partial colectomy by Dr. Burroughs, pathology report was negative for any evidence of colon cancer. Patient is readmitted for colostomy reversal which was done on 06/03/2018. Medical consultation was requested for management while hospitalized. Patient was seen and examined on the medical floor on 06/04/2018 she is alert and oriented 3 in no apparent distress there is no fever or chills she denies any headache or dizziness no chest pain no shortness of breath no cough no nausea or vomiting no abdominal pain no diarrhea and no urinary symptoms. Past Medical History Past Medical History: No Reported History Additional Past Medical History / Comment(s): small amount of redness around stoma/colostomy,benign mass-bowel obstruction ,bladder infection 4 years ago,diverticulitis,varicose veins History of Any Multi-Drug Resistant Organisms: None Reported Past Surgical History: Bowel Resection Additional Past Surgical History / Comment(s): colostomy, cataracts. Past Anesthesia/Blood Transfusion Reactions: No Reported Reaction Additional Past Anesthesia/Blood Transfusion Reaction / Comm: no hx of problems with prior blood transfusion(1962) Smoking Status: Former smoker - Past Family History Father Family Medical History: Myocardial Infarction ([place]) Additional Family Medical History / Comment(s): from cardiac arrest Mother Additional Family Medical History / Comment(s): divertiuclar disease- from sepsis Brother(s) Family Medical History: Cancer Sister(s) Family Medical History: Coronary Artery Disease (CAD) Medications and Allergies Home Medications Medication Instructions Recorded Confirmed Type Lactose-Reduced Food [Ensure Plus] 1 can PO BID 06/01/18 06/03/18 History Allergies Allergy/AdvReac Type Severity Reaction Status Date / Time No Known Allergies Allergy Verified 06/03/18 16:19 Physical Exam Vitals: Vital Signs Temp Pulse Pulse Resp BP Pulse Ox 06/04/18 07:46 98.6 F 69 16 102/54 99 06/04/18 02:15 78 92/58 98 06/04/18 01:30 99.0 F 78 16 98/50 98 06/03/18 20:15 75 119/58 99 06/03/18 20:00 79 115/58 100 06/03/18 19:45 85 106/55 100 06/03/18 19:30 83 106/52 100 06/03/18 19:15 79 114/51 100 06/03/18 19:00 78 111/56 100 06/03/18 18:45 83 119/57 100 06/03/18 18:30 77 117/56 100 06/03/18 18:20 97.0 F L 82 14 156/76 98 06/03/18 17:45 72 16 159/66 98 06/03/18 17:32 74 16 152/69 98 06/03/18 17:15 77 16 175/70 98 06/03/18 17:00 78 16 161/70 98 06/03/18 16:45 77 16 183/75 98 06/03/18 16:30 70 16 176/77 98 06/03/18 16:17 97.2 F L 77 16 176/81 98 06/03/18 14:20 68 16 117/56 100 Intake and Output 06/03/18 06/04/18 06/04/18 22:59 06:59 14:59 Intake Total 1275 875 Output Total 225 450 Balance 1050 425 Intake: IV 900 Intake, IV Titration 375 875 Amount D5-0.45% NaCl with KCl 375 875 20Meq/l 1,000 ml @ 125 mls/hr IV .Q8H [facility] Rx#: [id number] Output: Urine 200 450 Uretheral (Clark) 450 Estimated Blood Loss 25 Other: Voiding Method Indwelling Catheter Indwelling Catheter Indwelling Catheter In general patient is alert and oriented 3 in no apparent distress HEENT head normocephalic and atraumatic Neck is supple no JVD no goiter no lymphadenopathy Chest exam reveals a few scattered rhonchi no wheezing Cardiac exam reveals regular heart sounds S1 and S2 no gallops no murmurs Abdomen is soft nontender no organomegaly there is audible bowel sounds in all 4 quadrants Extremity exam reveals no edema no cyanosis or clubbing Neurological examination reveals no gross focal deficit Results CBC & Chem 7: 06/03/18 18:25 Labs: Abnormal Lab Results - Last 24 Hours (Table) 06/03/18 Range/Units 18:25 Glucose 133 H (74-99) mg/dL Assessment and Plan Plan: #1 postoperative day #1 patient had colostomy reversal #2 partial colectomy with colostomy placement on March 16 pathology report negative for any evidence of malignancy #3 patient started on clear liquid diet, denies any symptoms at this time #4 no significant past medical history patient is not on any medications at home #5 for DVT prophylaxis patient is on SCD stockings for GI prophylaxis patient is on IV Pepcid Continue current management will follow closely, check labs in a.m.
--- NOTE | 2018-06-04 16:48 | P.PN ---
Progress Note - Text 09/04 4106 80-year-old female status post colostomy reversal by . Patient has an epidural catheter for postop pain control is running at 6 mL an hour. Patient has a VAS of 1, no motor or sensory deficits noted. Plan to continue epidural infusion
[2018-06-04] MEDS: ROPIVACAINE 250 MG, HYDROMORPHONE (PF) 5 MG in SODIUM CHLORIDE 0.9% 200 ML EPIDURAL PRN (17:22)
[2018-06-05] MEDS: D5-0.45% NACL WITH KCL 20MEQ/L 1,000 ML IV SCH ×3 (02:54→20:24)
[2018-06-05] MEDS: LACTATED RINGERS 1,000 ML IV SCH ×2 (06:12→23:22)
--- NOTE | 2018-06-05 06:55 | P.PN ---
Progress Note - Text 06/05 652am 78-year-old female status post colostomy reversal by Dr. Burroughs.. Patient has an epidural catheter for postoperative pain control with solution running at 6 mL an hour with a venous of 0. Normal motor or sensory deficits noted . Plan to continue epidural infusion.
[2018-06-05 07:13] LABS: Basophils % (A) 0 %; Eosinophils # (A) 0.2 k/uL (0-0.7); Eosinophils % (A) 2 %; HCT 35.4 % (34.0-46.0); HGB 11.7 gm/dL (11.4-16.0); Lymphocytes # (A) 0.7 k/uL (1.0-4.8); Lymphocytes % (A) 8 %; MCH 29.2 pg (25.0-35.0); MCV 88.6 fL (80.0-100.0); Mean Platelet Volume 6.9; Monocytes # (A) 0.4 k/uL (0-1.0); Monocytes % (A) 4 %; Neutrophils # (A) 7.7 k/uL (1.3-7.7); Neutrophils % (A) 85 %; Platelet Count 235 k/uL (150-450); RDW 13.8 % (11.5-15.5)
[2018-06-05 07:38] LABS: ALT 21 U/L (9-52); AST 19 U/L (14-36); Albumin 2.6 g/dL (3.5-5.0); Alkaline Phosphatase 76 U/L (38-126); Anion Gap 6 mmol/L; Blood Urea Nitrogen 7 mg/dL (7-17); Calcium 8.4 mg/dL (8.4-10.2); Carbon Dioxide 24 mmol/L (22-30); Chloride 104 mmol/L (98-107); Glucose 109 mg/dL (74-99); Potassium 4.9 mmol/L (3.5-5.1); Sodium 134 mmol/L (137-145); Total Bilirubin 0.5 mg/dL (0.2-1.3); Total Protein 5.2 g/dL (6.3-8.2)
--- NOTE | 2018-06-05 09:58 | P.PN ---
Progress Note - Text Progress Note Date: 06/05/18 The patient is resting comfortably in her bed. She has no significant abdominal pain. On exam her vital signs are stable. Her abdomen soft. Status post reversal colostomy. Patient will have her diet advanced to full liquids. We dysphagia discharge in the next 48 hours.
[2018-06-05] MEDS: ALVIMOPAN 12 MG CAPSULE PO SCH ×2 (10:52→20:23)
[2018-06-05] MEDS: FAMOTIDINE 20 MG/2 ML VIAL IV SCH (10:53)
[2018-06-05] MEDS: FAMOTIDINE 20 MG TAB PO SCH (20:23)
[2018-06-05] MEDS: ROPIVACAINE 250 MG, HYDROMORPHONE (PF) 5 MG in SODIUM CHLORIDE 0.9% 200 ML EPIDURAL PRN (21:55)
[2018-06-06] MEDS: D5-0.45% NACL WITH KCL 20MEQ/L 1,000 ML IV SCH ×4 (03:14→20:25)
[2018-06-06] MEDS ORDERED: HYDROmorphone 1 MG/ML 1 ML SYRINGE IVP PRN (06:21)
--- NOTE | 2018-06-06 06:21 | P.PN ---
Progress Note - Text Progress Note Date: 06/06/18 Patient's postop day 3. This catheter day #4. She is resting comfortably. She is requiring minimal narcotics. There is no side effects from the epidural catheter. We'll plan on removing the catheter today and ordering when necessary pain medications.
[2018-06-06] MEDS: FAMOTIDINE 20 MG TAB PO SCH ×2 (09:49→22:35)
[2018-06-06] MEDS: ALVIMOPAN 12 MG CAPSULE PO SCH ×2 (09:49→22:35)
[2018-06-06 10:14] LABS: ALT 19 U/L (9-52); AST 21 U/L (14-36); Albumin 2.8 g/dL (3.5-5.0); Alkaline Phosphatase 105 U/L (38-126); Anion Gap 7 mmol/L; Blood Urea Nitrogen 5 mg/dL (7-17); Calcium 8.9 mg/dL (8.4-10.2); Carbon Dioxide 25 mmol/L (22-30); Chloride 104 mmol/L (98-107); Glucose 116 mg/dL (74-99); Potassium 4.9 mmol/L (3.5-5.1); Sodium 136 mmol/L (137-145); Total Bilirubin 0.4 mg/dL (0.2-1.3); Total Protein 5.6 g/dL (6.3-8.2)
[2018-06-06 10:33] LABS: Basophils % (A) 0 %; Eosinophils # (A) 0.7 k/uL (0-0.7); Eosinophils % (A) 8 %; HCT 37.5 % (34.0-46.0); HGB 12.1 gm/dL (11.4-16.0); Lymphocytes # (A) 0.7 k/uL (1.0-4.8); Lymphocytes % (A) 8 %; MCH 28.8 pg (25.0-35.0); MCHC 32.4 g/dL (31.0-37.0); Mean Platelet Volume 8.3; Monocytes # (A) 0.6 k/uL (0-1.0); Monocytes % (A) 7 %; Neutrophils # (A) 6.8 k/uL (1.3-7.7); Neutrophils % (A) 77 %; Platelet Count 259 k/uL (150-450); RBC 4.22 m/uL (3.80-5.40); RDW 13.9 % (11.5-15.5); WBC 8.9 k/uL (3.8-10.6)
--- NOTE | 2018-06-06 10:48 | P.PN ---
Subjective Progress Note Date: 06/06/18 Soha Devine is a 78-year-old female patient of Dr. Ana Aburto who was admitted to [facility] on 03/14/2018 at that time she had distal sigmoid obstructing mass with colon obstruction and dilatation she underwent partial colectomy by Dr. Burroughs, pathology report was negative for any evidence of colon cancer. Patient is readmitted for colostomy reversal which was done on 06/03/2018. Medical consultation was requested for management while hospitalized. Patient was seen and examined on the medical floor on 06/04/2018 she is alert and oriented 3 in no apparent distress there is no fever or chills she denies any headache or dizziness no chest pain no shortness of breath no cough no nausea or vomiting no abdominal pain no diarrhea and no urinary symptoms. On 06/06/2018 patient is currently sitting up in chair. Patient has been on full liquid diet. At this time patient denies chest pain or shortness of breath. Patient denies nausea vomiting or diarrhea. Patient denies any urinary burning or frequency. Clark catheter does remain in place. Epidural in place. Wound VAC dressing clean dry and intact. Objective - Vital Signs Vital signs: Vital Signs Temp 98.4 F 06/06/18 07:00 Pulse 72 06/06/18 07:00 Resp 16 06/06/18 07:00 BP 117/73 06/06/18 07:00 Pulse Ox 97 06/06/18 07:00 Intake & Output 06/05/18 06/06/18 06/06/18 18:59 06:59 18:59 Intake Total 1000 250 Output Total 1900 1400 Balance -900 -1150 Intake: IV 1000 250 D5-0.45% NaCl with KCl 1000 250 20Meq/l 1,000 ml @ 125 mls/hr IV .Q8H [facility] Rx#: [id number] Output: Urine 1900 1400 Uretheral (Clark) 1900 Other: Voiding Method Indwelling Catheter Indwelling Catheter - Exam Head normocephalic Neck supple Lungs clear to auscultation bilaterally no wheezing or crackles Heart regular rate and rhythm S1-S2, no rub or gallop Abdomen is soft nontender nondistended positive bowel sounds no hepatosplenomegaly. Hypoactive bowel sounds. Wound VAC in place. Dressing clean dry and intact Extremities no edema Neuro alert and orientated to 3 - Labs CBC & Chem 7: 06/06/18 09:03 06/06/18 09:03 Labs: Abnormal Lab Results - Last 24 Hours (Table) 06/06/18 06/06/18 Range/Units 09:03 09:03 Lymphocytes # 0.7 L (1.0-4.8) k/uL Sodium 136 L (137-145) mmol/L BUN 5 L (7-17) mg/dL Creatinine 0.45 L (0.52-1.04) mg/dL Glucose 116 H (74-99) mg/dL Total Protein 5.6 L (6.3-8.2) g/dL Albumin 2.8 L (3.5-5.0) g/dL Assessment and Plan Assessment: #1 postoperative day #3 patient had colostomy reversal. Patient maintained on full liquid diet. Epidural in place. One back in place #2 partial colectomy with colostomy placement on March 16 pathology report negative for any evidence of malignancy #3 patient started on clear liquid diet, denies any symptoms at this time #4 no significant past medical history patient is not on any medications at home #5 low-grade fever. Patient had a fever 99.7. Urinary analysis has been ordered. Chest x-ray two-view ordered DVT prophylaxis patient is on SCD stockings for GI prophylaxis patient is on IV Pepcid I performed an examination of the patient and discussed their management with the Nurse Practitioner. I have reviewed the Nurse Practitioner's notes and agree with the documented findings and plan of care
--- NOTE | 2018-06-06 10:56 | CDI ---
Last Revision, July 2017 Documentation Clarification Form Date: 06/06/2018 10:33:02 AM From: Rosanne Ogden RN, CCDS Admit Date: 06/03/2018 12:15:00 PM Patient Name: Soha Devine Visit Number: [id number] ATTENTION: The Clinical Documentation Specialists (CDI) and [facility] Coding Staff appreciate your assistance in clarifying documentation. Please respond to the clarification below the line at the bottom and electronically sign. The CDI & [facility] Coding staff will review the response and follow-up if needed. Please note: Queries are made part of the Legal Health Record. If you have any questions, please contact the author of this message via ITS. Tonja Olson MD/Madelaine Bolaños NP/Apoorva HILL History/Risk Factors: Partial colectomy for diverticulitis 03/26 w colostomy- in for reversal Clinical Indicators: Patients weight is 45.8 kg Patients height is 63 in Calculated BMI is 17.9 20 Lb weight loss since GI surgery 2 months ago Treatments: Pt is on a clear liquid diet Daily weights per unit protocol Nutritional Education provided 06/04 Dietary Consult completed 06/04 Administration of vitamins/supplements: Ensure clear TID In order to capture the severity of condition associated with patient BMI of 17.9, a clinical diagnoses needs to be documented by the physician. Please clarify: Protein Calorie Malnutrition (please specify mild, moderate, severe and [id number] cause if known) Emaciated Cachexia Underweight Other Unable to determine Please continue to document in your progress notes and discharge summary in order to capture severity of illness and risk of mortality. Include clinical findings that support your diagnosis. severe protein calorie malnutrition MTDD
--- NOTE | 2018-06-06 16:28 | P.PN ---
Progress Note - Text Progress Note Date: 06/06/18 The patient had an emesis morning. She denies any abdominal pain. On exam her vital signs are stable. Her abdomen soft. There is some minimal distention. Status post reversal of colostomy. The patient most likely has an ileus. She' ll remain nothing by mouth. We'll continue to observe her.
--- NOTE | 2018-06-06 16:51 | XR ---
EXAMINATION: XR chest 2V DATE AND TIME: 06/06/2018 4:15 PM CLINICAL INDICATION: increased SOB TECHNIQUE: PA and lateral COMPARISON: 03/15/2018 FINDINGS: Cardiac silhouette appears mildly enlarged. The lungs show mild silhouetting of the pulmonary vascula ture bilaterally by a fine reticular pattern of increased density consistent with mild interstitial p hase pulmonary edema. There are small bilateral pleural effusions. There is pneumoperitoneum. Bones are negative for acute findings. IMPRESSION: 1. PNEUMOPERITONEUM. 2. MILD CARDIOGENIC INTERSTITIAL PHASE PULMONARY EDEMA PATTERN. Abnormal results discussed with patient's RN Sofia at 4:45 PM.
[2018-06-06] MEDS ORDERED: FUROSEMIDE 10 MG/ML 2 ML VIAL IV ONE (20:00)
[2018-06-06 20:42] LABS: Glucose,Whole Blood 127 mg/dL (75-99)
[2018-06-06 23:39] LABS: Appearance,Urine Clear (Clear); Bilirubin,Urine Negative (Negative); Blood,Urine Negative (Negative); Color,Urine Colorless; Glucose,Urine (UA) Negative (Negative); Ketones,Urine Negative (Negative); Leukocyte Esterase,Urine Negative (Negative); Nitrite,Urine Negative (Negative); Protein,Urine Negative (Negative); Specific Gravity,Urine 1.003 (1.001-1.035); Urobilinogen,Urine <2.0 mg/dL (<2.0)
[2018-06-07] MEDS: LACTATED RINGERS 1,000 ML IV SCH (06:06)
[2018-06-07 11:46] LABS: Ionized Calcium 5.2 mg/dL (4.5-5.3)
--- NOTE | 2018-06-07 11:49 | P.PN ---
Subjective Progress Note Date: 06/07/18 Soha Devine is a 78-year-old female patient of Dr. Ana Aburto who was admitted to [facility] on 03/14/2018 at that time she had distal sigmoid obstructing mass with colon obstruction and dilatation she underwent partial colectomy by Dr. Burroughs, pathology report was negative for any evidence of colon cancer. Patient is readmitted for colostomy reversal which was done on 06/03/2018. Medical consultation was requested for management while hospitalized. Patient was seen and examined on the medical floor on 06/04/2018 she is alert and oriented 3 in no apparent distress there is no fever or chills she denies any headache or dizziness no chest pain no shortness of breath no cough no nausea or vomiting no abdominal pain no diarrhea and no urinary symptoms. On 06/06/2018 patient is currently sitting up in chair. Patient has been on full liquid diet. At this time patient denies chest pain or shortness of breath. Patient denies nausea vomiting or diarrhea. Patient denies any urinary burning or frequency. Clark catheter does remain in place. Epidural in place. Wound VAC dressing clean dry and intact. On 06/07/2018 patient is currently alert and oriented 3. Patient did have a epidural and Clark cath removed yesterday. Patient is voiding on her own. UA negative. Patient currently has active bowel sounds but no bowel movement. She denies chest pain or shortness of breath. Patient denies nausea vomiting or diarrhea. Patient denies any urinary burning or frequency. Objective - Vital Signs Vital signs: Vital Signs Temp 97.9 F 06/07/18 07:40 Pulse 73 06/07/18 07:40 Resp 14 06/07/18 07:40 BP 131/72 06/07/18 07:40 Pulse Ox 98 06/07/18 07:40 Intake & Output 06/06/18 06/07/18 06/07/18 18:59 06:59 18:59 Intake Total 800 1050 Output Total 1700 Balance -900 1050 Weight 45.813 kg 45.813 kg Intake: IV 800 1050 D5-0.45% NaCl with KCl 800 1050 20Meq/l 1,000 ml @ 75 mls /hr IV .[id number] [facility] Rx#: [id number] Output: Urine 1700 Uretheral (Clark) 1400 Other: Voiding Method Indwelling Catheter Toilet # Voids 3 - Exam Head normocephalic Neck supple Lungs clear to auscultation bilaterally no wheezing or crackles Heart regular rate and rhythm S1-S2, no rub or gallop Abdomen is soft nontender nondistended positive bowel sounds no hepatosplenomegaly. Hypoactive bowel sounds. Wound VAC in place. Dressing clean dry and intact Extremities no edema Neuro alert and orientated to 3 - Labs CBC & Chem 7: 06/06/18 09:03 06/06/18 09:03 Labs: Abnormal Lab Results - Last 24 Hours (Table) 06/06/18 Range/Units 20:23 POC Glucose (mg/dL) 127 H (75-99) mg/dL Assessment and Plan Assessment: #1 postoperative day #5 patient had colostomy reversal. Patient maintained on full liquid diet. Epidural has been removed. Patient has not had bowel movement. PPN will be started #2 partial colectomy with colostomy placement on March 16 pathology report negative for any evidence of malignancy #3 patient started on clear liquid diet. #4 no significant past medical history patient is not on any medications at home #5 low-grade fever. Patient had a fever 99.7. Urinary analysis negative. Chest x-ray completed showing pneumoperitoneum. Mild cardiogenic interstitial phase pulmonary edema pattern. Patient was given 20 mg Lasix IV once. DVT prophylaxis patient is on SCD stockings for GI prophylaxis patient is on IV Pepcid I performed an examination of the patient and discussed their management with the Nurse Practitioner. I have reviewed the Nurse Practitioner's notes and agree with the documented findings and plan of care
[2018-06-07 11:52] LABS: ALT 23 U/L (9-52); AST 26 U/L (14-36); Albumin 3.2 g/dL (3.5-5.0); Alkaline Phosphatase 164 U/L (38-126); Anion Gap 6 mmol/L; Blood Urea Nitrogen 7 mg/dL (7-17); Calcium 9.5 mg/dL (8.4-10.2); Carbon Dioxide 30 mmol/L (22-30); Chloride 101 mmol/L (98-107); Glucose 115 mg/dL (74-99); Magnesium 1.7 mg/dL (1.6-2.3); Phosphorus 3.7 mg/dL (2.5-4.5); Potassium 4.8 mmol/L (3.5-5.1); Sodium 137 mmol/L (137-145); Total Bilirubin 0.6 mg/dL (0.2-1.3); Total Protein 6.1 g/dL (6.3-8.2); Triglycerides 82 mg/dL (<150)
[2018-06-07] MEDS: FAMOTIDINE 20 MG TAB PO SCH ×2 (12:44→21:43)
[2018-06-07] MEDS: ALVIMOPAN 12 MG CAPSULE PO SCH ×2 (12:44→21:43)
[2018-06-07] MEDS: INSULIN ASPART 100 UNIT/ML 1 ML 10 ML VIAL SQ SCH ×2 (12:44→18:04)
[2018-06-07] MEDS ORDERED: HYDROcodone/APAP 5-325MG 1 EACH TAB PO PRN (12:57)
--- NOTE | 2018-06-07 13:11 | P.PN ---
Subjective Progress Note Date: 06/07/18 78-year-old female seen sitting up in a chair this morning. Patient reports that the IV pain medication makes her feel nauseated dizzy lightheaded. States is not passing gas no stool noted in the ostomy no bowel movement prevena system in place in place labs reviewed Status post reversal of colostomy. Suspect an ileus. Keep patient nothing by mouth History of a heart procedure end colostomy approximately 8-weeks ago. Patient had issues with prolapse of her colostomy. Patient rate presented for reversal of colostomy Objective - Vital Signs Vital signs: Vital Signs Temp 97.9 F 06/07/18 07:40 Pulse 73 06/07/18 07:40 Resp 14 06/07/18 07:40 BP 131/72 06/07/18 07:40 Pulse Ox 98 06/07/18 07:40 Intake & Output 06/06/18 06/07/18 06/07/18 18:59 06:59 18:59 Intake Total 800 1050 Output Total 1700 Balance -900 1050 Weight 45.813 kg 45.813 kg Intake: IV 800 1050 D5-0.45% NaCl with KCl 800 1050 20Meq/l 1,000 ml @ 75 mls /hr IV .[id number] [facility] Rx#: [id number] Output: Urine 1700 Uretheral (Clark) 1400 Other: Voiding Method Indwelling Catheter Toilet # Voids 3 - Exam Physical exam alert 78-year-old female sitting up in bed appears in no acute distress Lungs adequate air movement bilaterally Heart S1-S2 audible regular Abdomen soft surgical dressing dry prevena wound system in place from ostomy states urinating frequent or burning with urination currently nothing by mouth status patient states is hungry no reports of nausea vomiting No edema noted to extremities - Labs CBC & Chem 7: 06/06/18 09:03 06/07/18 11:21 Labs: Abnormal Lab Results - Last 24 Hours (Table) 06/06/18 06/07/18 Range/Units 20:23 11:21 Creatinine 0.43 L (0.52-1.04) mg/dL Glucose 115 H (74-99) mg/dL POC Glucose (mg/dL) 127 H (75-99) mg/dL Alkaline Phosphatase 164 H (38-126) U/L Total Protein 6.1 L (6.3-8.2) g/dL Albumin 3.2 L (3.5-5.0) g/dL Assessment and Plan Assessment: Impression Presented on the March 2018 distal sigmoid obstructing mass with colon obstruction underwent a partial colectomy. History of diverticulitis Report negative for evidence of colon cancer. Admitted for reversal colostomy issues with prolapse of her colostomy Plan Continue postop surgical care Pain control Increase activity Keep nothing by mouth until bowel function resumes DVT and GI prophylaxis Further recommendations pending The above impression and plan of care have been discussed and directed by signing physician. Soha Casas nurse practitioner acting as scribe for signing physician.
[2018-06-07] MEDS ORDERED: MVI, ADULT NO.4 WITH VIT K 10 ML, TRACE (CONC-1ML/DOSE) 1 ML in AMINO ACID 4.25%-D10W+L... IV SCH ×3 (14:00)
[2018-06-07 14:30] LABS: Glucose,Whole Blood 108 mg/dL (75-99)
[2018-06-07] MEDS: D5-0.45% NACL WITH KCL 20MEQ/L 1,000 ML IV SCH ×2 (16:27→21:43)
[2018-06-07 17:19] LABS: Glucose,Whole Blood 137 mg/dL (75-99)
[2018-06-07] MEDS: FAT EMULSION 20% 250 ML in EMPTY BAG 1 BAG IV SCH (17:56)
[2018-06-07 20:09] LABS: Hemoglobin A1C 5.4 % (4.0-6.0)
[2018-06-08] MEDS: INSULIN ASPART 100 UNIT/ML 1 ML 10 ML VIAL SQ SCH ×4 (00:13→17:12)
[2018-06-08 00:25] LABS: Glucose,Whole Blood 112 mg/dL (75-99)
[2018-06-08 05:36] LABS: Glucose,Whole Blood 128 mg/dL (75-99)
[2018-06-08] MEDS: LACTATED RINGERS 1,000 ML IV SCH (05:37)
[2018-06-08] MEDS: 1: MVI, ADULT NO.4 WITH VIT K 10 ML, TRACE (CONC-1ML/DOSE) 1 ML in AMINO ACID 4.25%-D10W IV SCH ×9 (07:42→21:00)
[2018-06-08] MEDS: FAMOTIDINE 20 MG TAB PO SCH ×2 (09:15→21:00)
[2018-06-08] MEDS: ALVIMOPAN 12 MG CAPSULE PO SCH ×2 (09:15→21:00)
[2018-06-08] MEDS: ENOXAPARIN 40 MG/0.4 ML SYRINGE SQ SCH (09:26)
[2018-06-08 10:17] LABS: Anion Gap 9 mmol/L; Blood Urea Nitrogen 12 mg/dL (7-17); Calcium 8.7 mg/dL (8.4-10.2); Carbon Dioxide 27 mmol/L (22-30); Chloride 100 mmol/L (98-107); Glucose 118 mg/dL (74-99); Magnesium 1.7 mg/dL (1.6-2.3); Phosphorus 4.1 mg/dL (2.5-4.5); Potassium 4.1 mmol/L (3.5-5.1); Sodium 136 mmol/L (137-145)
[2018-06-08] MEDS: D5-0.45% NACL WITH KCL 20MEQ/L 1,000 ML IV SCH (10:30)
--- NOTE | 2018-06-08 12:20 | P.PN ---
Subjective Progress Note Date: 06/08/18 78-year-old female seen this morning at the bedside. Patient stated had 3 bowel movements last night and one this morning reports less abdominal pain abdomen soft and surgical dressing site dry. Wound VAC in place Patient states pain medication oral has been effective for pain control labs reviewed remains afebrile Patient has a history of a Gregory procedure with end colostomy approximately 8 weeks ago. Patient had problems with prolapse of her ostomy. Patient presented for reversal of colostomy. Takedown of splenic flexure left colon done on June 03 Objective - Vital Signs Vital signs: Vital Signs Temp 98.5 F 06/08/18 07:00 Pulse 78 06/08/18 07:00 Resp 16 06/08/18 09:58 BP 148/72 06/08/18 07:00 Pulse Ox 95 06/08/18 07:00 Intake & Output 06/07/18 06/08/18 06/08/18 18:59 06:59 18:59 Intake Total 750 284 Balance 750 284 Weight 45.813 kg 51 kg Intake: IV 750 D5-0.45% NaCl with KCl 750 20Meq/l 1,000 ml @ 75 mls /hr IV .[id number] WILLAM Rx#: [id number] Intake, IV Titration 284 Amount Fat Emulsion 20% 250 ml 84 In Empty Bag 1 bag @ 21 mls/hr IV DAILY@1800 WILLAM Rx#:[id number] Mvi, Adult No.4 with Vit 200 K 10 ml Trace (Conc-1Ml/ Dose) 1 ml In Amino Acid 4.25%-D10w+Lytes*E* 1,000 ml @ 50 mls/hr IV . [id number] WILLAM Rx#:[id number] Other: Voiding Method Toilet Toilet # Voids 1 # Bowel Movements 1 - Exam Physical exam alert 78-year-old female talkative states had one bowel movement this morning several last evening sitting up in bed appears in no acute distress Lungs adequate air movement bilaterally Heart S1-S2 audible regular Abdomen soft surgical dressing dry prevena wound system in place states urinating frequent or burning with urination PPN infusing currently nothing by mouth. Patient reports having a bowel movement this morning denying abdominal cramping No edema noted to extremities - Labs CBC & Chem 7: 06/06/18 09:03 10/31/18 07:53 Labs: Abnormal Lab Results - Last 24 Hours (Table) 06/07/18 06/07/18 06/08/18 Range/Units 14:18 17:08 00:08 Sodium (137-145) mmol/L Creatinine (0.52-1.04) mg/dL Glucose (74-99) mg/dL POC Glucose (mg/dL) 108 H 137 H 112 H (75-99) mg/dL 06/08/18 06/08/18 Range/Units 05:24 07:53 Sodium 136 L (137-145) mmol/L Creatinine 0.46 L (0.52-1.04) mg/dL Glucose 118 H (74-99) mg/dL POC Glucose (mg/dL) 128 H (75-99) mg/dL Assessment and Plan Assessment: Impression Presented on the March 2018 distal sigmoid obstructing mass with colon obstruction underwent a partial colectomy. History of diverticulitis Report pathology negative for evidence of colon cancer. Admitted for reversal colostomy issues with prolapse of colostomy Reversal of colostomy, takedown splenic flexure left: Done June 03 Plan Continue postop surgical care Pain control Increase activity Clear liquid diet advance as tolerated DVT and GI prophylaxis Further recommendations pending PT OT eval The above impression and plan of care have been discussed and directed by signing physician. Soha Casas nurse practitioner acting as scribe for signing physician.
[2018-06-08] MEDS ORDERED: HYDROcodone/APAP 5-325MG 1 EACH TAB PO PRN (12:21)
[2018-06-08 12:25] LABS: Glucose,Whole Blood 121 mg/dL (75-99)
--- NOTE | 2018-06-08 12:47 | P.PN ---
Subjective Progress Note Date: 06/08/18 Soha Devine is a 78-year-old female patient of Dr. Ana Aburto who was admitted to [facility] on 03/14/2018 at that time she had distal sigmoid obstructing mass with colon obstruction and dilatation she underwent partial colectomy by Dr. Burroughs, pathology report was negative for any evidence of colon cancer. Patient is readmitted for colostomy reversal which was done on 06/03/2018. Medical consultation was requested for management while hospitalized. Patient was seen and examined on the medical floor on 06/04/2018 she is alert and oriented 3 in no apparent distress there is no fever or chills she denies any headache or dizziness no chest pain no shortness of breath no cough no nausea or vomiting no abdominal pain no diarrhea and no urinary symptoms. On 06/06/2018 patient is currently sitting up in chair. Patient has been on full liquid diet. At this time patient denies chest pain or shortness of breath. Patient denies nausea vomiting or diarrhea. Patient denies any urinary burning or frequency. Clark catheter does remain in place. Epidural in place. Wound VAC dressing clean dry and intact. On 06/07/2018 patient is currently alert and oriented 3. Patient did have a epidural and Clark cath removed yesterday. Patient is voiding on her own. UA negative. Patient currently has active bowel sounds but no bowel movement. She denies chest pain or shortness of breath. Patient denies nausea vomiting or diarrhea. Patient denies any urinary burning or frequency. On 06/08/2018 patient is currently alert and oriented 3. Patient is resting comfortably in bed. Patient did have a bowel movement yesterday. Patient is receiving PPN through IV. At this time patient denies chest pain or shortness of breath patient denies nausea vomiting or diarrhea. Patient denies any urinary burning or frequency. Objective - Vital Signs Vital signs: Vital Signs Temp 98.5 F 06/08/18 07:00 Pulse 78 06/08/18 07:00 Resp 16 06/08/18 09:58 BP 148/72 06/08/18 07:00 Pulse Ox 95 06/08/18 07:00 Intake & Output 06/07/18 06/08/18 06/08/18 18:59 06:59 18:59 Intake Total 750 284 Balance 750 284 Weight 45.813 kg 51 kg Intake: IV 750 D5-0.45% NaCl with KCl 750 20Meq/l 1,000 ml @ 75 mls /hr IV .[id number] WILLAM Rx#: [id number] Intake, IV Titration 284 Amount Fat Emulsion 20% 250 ml 84 In Empty Bag 1 bag @ 21 mls/hr IV DAILY@1800 ON LICENSE OF [facility] Rx#:[id number] Mvi, Adult No.4 with Vit 200 K 10 ml Trace (Conc-1Ml/ Dose) 1 ml In Amino Acid 4.25%-D10w+Lytes*E* 1,000 ml @ 50 mls/hr IV . [id number] WILLAM Rx#:[id number] Other: Voiding Method Toilet Toilet # Voids 1 # Bowel Movements 1 - Exam Head normocephalic Neck supple Lungs clear to auscultation bilaterally no wheezing or crackles Heart regular rate and rhythm S1-S2, no rub or gallop Abdomen is soft nontender nondistended positive bowel sounds no hepatosplenomegaly. Hypoactive bowel sounds. Wound VAC in place. Dressing clean dry and intact Extremities no edema Neuro alert and orientated to 3 - Labs CBC & Chem 7: 06/06/18 09:03 06/08/18 07:53 Labs: Abnormal Lab Results - Last 24 Hours (Table) 06/07/18 06/07/18 06/08/18 Range/Units 14:18 17:08 00:08 Sodium (137-145) mmol/L Creatinine (0.52-1.04) mg/dL Glucose (74-99) mg/dL POC Glucose (mg/dL) 108 H 137 H 112 H (75-99) mg/dL 06/08/18 06/08/18 06/08/18 Range/Units 05:24 07:53 12:13 Sodium 136 L (137-145) mmol/L Creatinine 0.46 L (0.52-1.04) mg/dL Glucose 118 H (74-99) mg/dL POC Glucose (mg/dL) 128 H 121 H (75-99) mg/dL Assessment and Plan Assessment: #1 postoperative day #6 patient had colostomy reversal. Patient maintained on full liquid diet. Epidural has been removed. Patient has not had bowel movement. PPN will be started. Patient did have bowel movement. She started on clear liquid diet advance as tolerated per surgical services #2 partial colectomy with colostomy placement on March 16 pathology report negative for any evidence of malignancy #3 patient started on clear liquid diet. #4 no significant past medical history patient is not on any medications at home #5 low-grade fever. Patient had a fever 99.7. Urinary analysis negative. Chest x-ray completed showing pneumoperitoneum. Mild cardiogenic interstitial phase pulmonary edema pattern. Patient was given 20 mg Lasix IV once. DVT prophylaxis of Lovenox for GI prophylaxis patient is on IV Pepcid Continue with physical therapy Consult social work for discharge planning I performed an examination of the patient and discussed their management with the Nurse Practitioner. I have reviewed the Nurse Practitioner's notes and agree with the documented findings and plan of care
[2018-06-08 13:25] LABS: Basophils % (A) 1 %; Eosinophils # (A) 0.5 k/uL (0-0.7); Eosinophils % (A) 8 %; HCT 37.2 % (34.0-46.0); HGB 11.7 gm/dL (11.4-16.0); Lymphocytes # (A) 0.6 k/uL (1.0-4.8); Lymphocytes % (A) 10 %; MCH 28.1 pg (25.0-35.0); MCHC 31.6 g/dL (31.0-37.0); MCV 89.1 fL (80.0-100.0); Mean Platelet Volume 7.5; Monocytes # (A) 0.4 k/uL (0-1.0); Monocytes % (A) 7 %; Neutrophils # (A) 4.1 k/uL (1.3-7.7); Neutrophils % (A) 72 %; Platelet Count 290 k/uL (150-450); RBC 4.17 m/uL (3.80-5.40); RDW 13.6 % (11.5-15.5); WBC 5.7 k/uL (3.8-10.6)
[2018-06-08] MEDS: MAGNESIUM SULFATE-D5W PMX 1 GM in DEXTROSE/WATER 1 100ML.BAG IVPB SCH ×2 (15:23→18:07)
[2018-06-08] MEDS: FAT EMULSION 20% 250 ML in EMPTY BAG 1 BAG IV SCH (17:23)
[2018-06-08 17:24] LABS: Glucose,Whole Blood 130 mg/dL (75-99)
[2018-06-09 00:17] LABS: Glucose,Whole Blood 121 mg/dL (75-99)
[2018-06-09] MEDS: D5-0.45% NACL WITH KCL 20MEQ/L 1,000 ML IV SCH ×2 (01:11→17:21)
[2018-06-09] MEDS: INSULIN ASPART 100 UNIT/ML 1 ML 10 ML VIAL SQ SCH ×2 (01:12→06:16)
[2018-06-09] MEDS: LACTATED RINGERS 1,000 ML IV SCH (06:15)
[2018-06-09 06:16] LABS: Glucose,Whole Blood 113 mg/dL (75-99)
[2018-06-09 07:25] LABS: Basophils % (A) 0 %; Eosinophils # (A) 0.4 k/uL (0-0.7); Eosinophils % (A) 6 %; HGB 12.1 gm/dL (11.4-16.0); Lymphocytes # (A) 0.9 k/uL (1.0-4.8); Lymphocytes % (A) 12 %; MCH 27.7 pg (25.0-35.0); MCHC 31.9 g/dL (31.0-37.0); MCV 86.9 fL (80.0-100.0); Mean Platelet Volume 6.5; Monocytes # (A) 0.5 k/uL (0-1.0); Monocytes % (A) 7 %; Neutrophils # (A) 5.1 k/uL (1.3-7.7); Neutrophils % (A) 73 %; Platelet Count 335 k/uL (150-450); RBC 4.37 m/uL (3.80-5.40); RDW 13.6 % (11.5-15.5); WBC 6.9 k/uL (3.8-10.6)
[2018-06-09 07:47] LABS: Anion Gap 7 mmol/L; Blood Urea Nitrogen 9 mg/dL (7-17); Calcium 8.6 mg/dL (8.4-10.2); Carbon Dioxide 28 mmol/L (22-30); Chloride 102 mmol/L (98-107); Glucose 112 mg/dL (74-99); Magnesium 2.1 mg/dL (1.6-2.3); Phosphorus 3.7 mg/dL (2.5-4.5); Sodium 137 mmol/L (137-145)
[2018-06-09] MEDS: ALVIMOPAN 12 MG CAPSULE PO SCH ×2 (09:06→22:12)
[2018-06-09] MEDS: FAMOTIDINE 20 MG TAB PO SCH ×2 (09:06→22:12)
[2018-06-09] MEDS: ENOXAPARIN 40 MG/0.4 ML SYRINGE SQ SCH (09:06)
[2018-06-09] MEDS: 1: MVI, ADULT NO.4 WITH VIT K 10 ML, TRACE (CONC-1ML/DOSE) 1 ML in AMINO ACID 4.25%-D10W IV SCH ×3 (09:13)
--- NOTE | 2018-06-09 09:45 | P.PN ---
Subjective Progress Note Date: 06/09/18 78-year-old female seen this morning on rounds sitting up in bed. Patient states that she had a bowel movement this morning 1 last night. Reportedly tolerating a diet. Patient states she did eat a small amount of sherbet yesterday evening and had a small emesis after. prevena wound system in place. Abdominal dressing dry abdomen not distended surgical tenderness appropriate. White count this morning 6.9 electrolytes within normal limits afebrile patient states she has been up ambulating yesterday in the [facility] reports daughter was requesting the PPN be discontinued yesterday evening and diet be advanced currently PPN is off Patient has a history of a Gregory procedure with end colostomy approximately 8 weeks ago. Patient had problems with prolapse of her ostomy. Patient presented for reversal of colostomy. Takedown of splenic flexure left colon done on June 03 Objective - Vital Signs Vital signs: Vital Signs Temp 98.2 F 06/09/18 07:56 Pulse 75 06/09/18 07:56 Resp 16 06/09/18 07:56 BP 150/72 06/09/18 07:56 Pulse Ox 95 06/09/18 07:56 Intake & Output 06/08/18 06/09/18 06/09/18 18:59 06:59 18:59 Intake Total 700 Balance 700 Weight 51 kg Intake: Intake, IV Titration 700 Amount Amino Acid 4.25%-D10w+ 500 Lytes*E* 1,000 ml @ 83 mls/hr IV .BY DURATION WILLAM Rx#:[id number] D5-0.45% NaCl with KCl 200 20Meq/l 1,000 ml @ 75 mls /hr IV .[id number] WILLAM Rx#: [id number] Other: Voiding Method Toilet Toilet # Voids 1 - Exam Physical exam alert 78-year-old female talkative appears in no acute distress Lungs adequate air movement bilaterally Heart S1-S2 audible regular Abdomen soft surgical dressing dry prevena wound system in place tolerating clear to full liquid diet Patient reports having a bowel movement this morning denying abdominal cramping No edema noted to extremities - Labs CBC & Chem 7: 06/09/18 06:45 06/09/18 06:45 Labs: Abnormal Lab Results - Last 24 Hours (Table) 06/08/18 06/08/18 06/08/18 Range/Units 07:53 07:53 12:13 Lymphocytes # 0.6 L (1.0-4.8) k/uL Sodium 136 L (137-145) mmol/L Creatinine 0.46 L (0.52-1.04) mg/dL Glucose 118 H (74-99) mg/dL POC Glucose (mg/dL) 121 H (75-99) mg/dL 06/08/18 06/09/18 06/09/18 Range/Units 17:11 00:07 06:14 Lymphocytes # (1.0-4.8) k/uL Sodium (137-145) mmol/L Creatinine (0.52-1.04) mg/dL Glucose (74-99) mg/dL POC Glucose (mg/dL) 130 H 121 H 113 H (75-99) mg/dL 06/09/18 06/09/18 Range/Units 06:45 06:45 Lymphocytes # 0.9 L (1.0-4.8) k/uL Sodium (137-145) mmol/L Creatinine 0.48 L (0.52-1.04) mg/dL Glucose 112 H (74-99) mg/dL POC Glucose (mg/dL) (75-99) mg/dL Assessment and Plan Assessment: Impression Presented on the March 2018 distal sigmoid obstructing mass with colon obstruction underwent a partial colectomy. History of diverticulitis Report pathology negative for evidence of colon cancer. Admitted for reversal colostomy issues with prolapse of colostomy Reversal of colostomy, takedown splenic flexure left: Done June 03 Plan Continue postop surgical care Pain control Increase activity diet advance as tolerated DVT and GI prophylaxis Further recommendations pending PT OT eval The above impression and plan of care have been discussed and directed by signing physician. Soha Casas nurse practitioner acting as scribe for signing physician.
--- NOTE | 2018-06-09 10:33 | P.PN ---
Subjective Progress Note Date: 06/09/18 Soha Devine is a 78-year-old female patient of Dr. Ana Aburto who was admitted to [facility] on 03/14/2018 at that time she had distal sigmoid obstructing mass with colon obstruction and dilatation she underwent partial colectomy by Dr. Burroughs, pathology report was negative for any evidence of colon cancer. Patient is readmitted for colostomy reversal which was done on 06/03/2018. Medical consultation was requested for management while hospitalized. Patient was seen and examined on the medical floor on 06/04/2018 she is alert and oriented 3 in no apparent distress there is no fever or chills she denies any headache or dizziness no chest pain no shortness of breath no cough no nausea or vomiting no abdominal pain no diarrhea and no urinary symptoms. On 06/06/2018 patient is currently sitting up in chair. Patient has been on full liquid diet. At this time patient denies chest pain or shortness of breath. Patient denies nausea vomiting or diarrhea. Patient denies any urinary burning or frequency. Clark catheter does remain in place. Epidural in place. Wound VAC dressing clean dry and intact. On 06/07/2018 patient is currently alert and oriented 3. Patient did have a epidural and Clark cath removed yesterday. Patient is voiding on her own. UA negative. Patient currently has active bowel sounds but no bowel movement. She denies chest pain or shortness of breath. Patient denies nausea vomiting or diarrhea. Patient denies any urinary burning or frequency. On 06/08/2018 patient is currently alert and oriented 3. Patient is resting comfortably in bed. Patient did have a bowel movement yesterday. Patient is receiving PPN through IV. At this time patient denies chest pain or shortness of breath patient denies nausea vomiting or diarrhea. Patient denies any urinary burning or frequency. On 06/09/2018 patient is currently alert and oriented 3. Patient is currently sitting up in chair. Tolerating full liquid diet. Surgical services diet will be advanced to low fiber diet for lunch. She is having bowel movements. Physical therapy has been consulted and working with patient. At this time patient denies chest pain or shortness of breath. Patient denies nausea vomiting or diarrhea. Patient denies any urinary burning or frequency Objective - Vital Signs Vital signs: Vital Signs Temp 98.2 F 06/09/18 07:56 Pulse 75 06/09/18 07:56 Resp 16 06/09/18 07:56 BP 150/72 06/09/18 07:56 Pulse Ox 95 06/09/18 07:56 Intake & Output 06/08/18 06/09/18 06/09/18 18:59 06:59 18:59 Intake Total 700 Balance 700 Weight 51 kg Intake: Intake, IV Titration 700 Amount Amino Acid 4.25%-D10w+ 500 Lytes*E* 1,000 ml @ 83 mls/hr IV .BY DURATION WILLAM Rx#:[id number] D5-0.45% NaCl with KCl 200 20Meq/l 1,000 ml @ 75 mls /hr IV .[id number] WILLAM Rx#: [id number] Other: Voiding Method Toilet Toilet # Voids 1 - Exam Head normocephalic Neck supple Lungs clear to auscultation bilaterally no wheezing or crackles Heart regular rate and rhythm S1-S2, no rub or gallop Abdomen is soft nontender nondistended positive bowel sounds no hepatosplenomegaly. Hypoactive bowel sounds. Wound VAC in place. Dressing clean dry and intact Extremities no edema Neuro alert and orientated to 3 - Labs CBC & Chem 7: 06/09/18 06:45 06/09/18 06:45 Labs: Abnormal Lab Results - Last 24 Hours (Table) 06/08/18 06/08/18 06/08/18 Range/Units 07:53 12:13 17:11 Lymphocytes # 0.6 L (1.0-4.8) k/uL Creatinine (0.52-1.04) mg/dL Glucose (74-99) mg/dL POC Glucose (mg/dL) 121 H 130 H (75-99) mg/dL 06/09/18 06/09/18 06/09/18 Range/Units 00:07 06:14 06:45 Lymphocytes # (1.0-4.8) k/uL Creatinine 0.48 L (0.52-1.04) mg/dL Glucose 112 H (74-99) mg/dL POC Glucose (mg/dL) 121 H 113 H (75-99) mg/dL 06/09/18 Range/Units 06:45 Lymphocytes # 0.9 L (1.0-4.8) k/uL Creatinine (0.52-1.04) mg/dL Glucose (74-99) mg/dL POC Glucose (mg/dL) (75-99) mg/dL Assessment and Plan Assessment: #1 postoperative day #7 patient had colostomy reversal. Patient maintained on full liquid diet. Epidural has been removed. Patient has not had bowel movement. PPN will be started. Patient did have bowel movement. She started on clear liquid diet advance as tolerated per surgical services. Patient is tolerating full liquid diet will be advanced to low fiber diet per surgical services #2 partial colectomy with colostomy placement on March 16 pathology report negative for any evidence of malignancy #3 patient started on clear liquid diet. Patient has been advanced to low fiber diet per surgical services #4 no significant past medical history patient is not on any medications at home #5 low-grade fever. Patient had a fever 99.7. Urinary analysis negative. Chest x-ray completed showing pneumoperitoneum. Mild cardiogenic interstitial phase pulmonary edema pattern. Patient was given 20 mg Lasix IV once. DVT prophylaxis of Lovenox for GI prophylaxis patient is on IV Pepcid Continue with physical therapy Consult social work for discharge planning I performed an examination of the patient and discussed their management with the Nurse Practitioner. I have reviewed the Nurse Practitioner's notes and agree with the documented findings and plan of care
[2018-06-09 14:53] VITALS: BMI 19.9
[2018-06-10 01:03] VITALS: RESP 15
[2018-06-10] MEDS: D5-0.45% NACL WITH KCL 20MEQ/L 1,000 ML IV SCH (04:03)
[2018-06-10 07:01] LABS: Basophils % (A) 0 %; Eosinophils # (A) 0.4 k/uL (0-0.7); Eosinophils % (A) 6 %; HCT 35.2 % (34.0-46.0); HGB 11.9 gm/dL (11.4-16.0); Lymphocytes # (A) 0.9 k/uL (1.0-4.8); Lymphocytes % (A) 13 %; MCH 29.1 pg (25.0-35.0); MCHC 33.9 g/dL (31.0-37.0); MCV 85.7 fL (80.0-100.0); Mean Platelet Volume 6.9; Monocytes # (A) 0.4 k/uL (0-1.0); Monocytes % (A) 7 %; Neutrophils # (A) 4.8 k/uL (1.3-7.7); Neutrophils % (A) 73 %; Platelet Count 347 k/uL (150-450); RDW 13.6 % (11.5-15.5); WBC 6.5 k/uL (3.8-10.6)
[2018-06-10 07:16] LABS: Anion Gap 8 mmol/L; Blood Urea Nitrogen 7 mg/dL (7-17); Calcium 8.5 mg/dL (8.4-10.2); Carbon Dioxide 24 mmol/L (22-30); Chloride 104 mmol/L (98-107); Glucose 101 mg/dL (74-99); Magnesium 1.9 mg/dL (1.6-2.3); Phosphorus 3.5 mg/dL (2.5-4.5); Potassium 3.9 mmol/L (3.5-5.1); Sodium 136 mmol/L (137-145)
[2018-06-10 07:50] VITALS: BP 133/64; PULSE 71; TEMP 96.2
[2018-06-10] MEDS: FAMOTIDINE 20 MG TAB PO SCH (08:48)
[2018-06-10] MEDS: ALVIMOPAN 12 MG CAPSULE PO SCH (08:48)
[2018-06-10] MEDS: ENOXAPARIN 40 MG/0.4 ML SYRINGE SQ SCH (08:48)
--- NOTE | 2018-06-10 09:57 | P.PN ---
Subjective Progress Note Date: 06/10/18 Soha Devine is a 78-year-old female patient of Dr. Ana Aburto who was admitted to [facility] on 03/14/2018 at that time she had distal sigmoid obstructing mass with colon obstruction and dilatation she underwent partial colectomy by Dr. Burroughs, pathology report was negative for any evidence of colon cancer. Patient is readmitted for colostomy reversal which was done on 06/03/2018. Medical consultation was requested for management while hospitalized. Patient was seen and examined on the medical floor on 06/04/2018 she is alert and oriented 3 in no apparent distress there is no fever or chills she denies any headache or dizziness no chest pain no shortness of breath no cough no nausea or vomiting no abdominal pain no diarrhea and no urinary symptoms. On 06/06/2018 patient is currently sitting up in chair. Patient has been on full liquid diet. At this time patient denies chest pain or shortness of breath. Patient denies nausea vomiting or diarrhea. Patient denies any urinary burning or frequency. Clark catheter does remain in place. Epidural in place. Wound VAC dressing clean dry and intact. On 06/07/2018 patient is currently alert and oriented 3. Patient did have a epidural and Clark cath removed yesterday. Patient is voiding on her own. UA negative. Patient currently has active bowel sounds but no bowel movement. She denies chest pain or shortness of breath. Patient denies nausea vomiting or diarrhea. Patient denies any urinary burning or frequency. On 06/08/2018 patient is currently alert and oriented 3. Patient is resting comfortably in bed. Patient did have a bowel movement yesterday. Patient is receiving PPN through IV. At this time patient denies chest pain or shortness of breath patient denies nausea vomiting or diarrhea. Patient denies any urinary burning or frequency. On 06/09/2018 patient is currently alert and oriented 3. Patient is currently sitting up in chair. Tolerating full liquid diet. Surgical services diet will be advanced to low fiber diet for lunch. She is having bowel movements. Physical therapy has been consulted and working with patient. At this time patient denies chest pain or shortness of breath. Patient denies nausea vomiting or diarrhea. Patient denies any urinary burning or frequency On 06/10/2018 patient currently sitting in bed. Patient is alert and oriented 3. Patient denies any abdominal pain nausea or vomiting. Patient has been tolerating low fiber diet per surgical services. Patient is having bowel movements. This time patient denies chest pain or shortness of breath. Patient denies nausea vomiting or diarrhea. Patient denies any urinary burning or frequency. Awaiting surgical processor possible discharge home Objective - Vital Signs Vital signs: Vital Signs Temp 96.2 F L 06/10/18 07:00 Pulse 71 06/10/18 07:00 Resp 15 06/10/18 07:00 BP 133/64 06/10/18 07:00 Pulse Ox 96 06/10/18 07:00 Intake & Output 06/09/18 06/10/18 06/10/18 18:59 06:59 18:59 Weight 51 kg Other: Voiding Method Toilet # Voids 2 1 - Exam Head normocephalic Neck supple Lungs clear to auscultation bilaterally no wheezing or crackles Heart regular rate and rhythm S1-S2, no rub or gallop Abdomen is soft nontender nondistended positive bowel sounds no hepatosplenomegaly. Hypoactive bowel sounds. Wound VAC in place. Dressing clean dry and intact Extremities no edema Neuro alert and orientated to 3 - Labs CBC & Chem 7: 06/10/18 06:36 06/10/18 06:36 Labs: Abnormal Lab Results - Last 24 Hours (Table) 06/10/18 06/10/18 Range/Units 06:36 06:36 Lymphocytes # 0.9 L (1.0-4.8) k/uL Sodium 136 L (137-145) mmol/L Creatinine 0.44 L (0.52-1.04) mg/dL Glucose 101 H (74-99) mg/dL Assessment and Plan Assessment: #1 postoperative day #8 patient had colostomy reversal. Patient maintained on full liquid diet. Epidural has been removed. Patient has not had bowel movement. PPN will be started. Patient did have bowel movement. She started on clear liquid diet advance as tolerated per surgical services. Patient is tolerating full liquid diet will be advanced to low fiber diet per surgical services. patient is tolerating low fiber diet. Patient is having bowel movements #2 partial colectomy with colostomy placement on March 16 pathology report negative for any evidence of malignancy #3 patient started on clear liquid diet. Patient has been advanced to low fiber diet per surgical services #4 no significant past medical history patient is not on any medications at home #5 low-grade fever. Patient had a fever 99.7. Urinary analysis negative. Chest x-ray completed showing pneumoperitoneum. Mild cardiogenic interstitial phase pulmonary edema pattern. Patient was given 20 mg Lasix IV once. DVT prophylaxis of Lovenox for GI prophylaxis patient is on IV Pepcid Continue with physical therapy Patient is to be DC'd home. Awaiting final surgical clearance clearance I performed an examination of the patient and discussed their management with the Nurse Practitioner. I have reviewed the Nurse Practitioner's notes and agree with the documented findings and plan of care
--- NOTE | 2018-06-10 11:12 | P.DS ---
Providers Date of admission: 06/03/18 12:15 Expected date of discharge: 06/10/18 Attending physician: Reji Peck Consults: 06/03/18 16:04 Consult Physician Routine Consulting Provider: Tonja Sandoval Consult Reason/Comments: Management medical Do you want consulting provider notified?: Yes Primary care physician: [facility] Course: -year-old female presented for a reversal of colostomy . Patient has a history of diverticulitis. Patient underwent a llanos procedure with end colostomy approximately 8 weeks prior. Patient developed issues with prolapse of her colostomy. Patient presented to have reversal done of colostomy On June 03 underwent left colon splenic flexure with reversal of colostomy there were no postop events on the day of discharge patient was ambulating independent on the unit tolerating a diet no nausea no vomiting reportedly had a bowel movement on the day of discharge. Patient was taking plain Tylenol for pain control. Impression Presented on the March 2018 distal sigmoid obstructing mass with colon obstruction underwent a partial colectomy. History of diverticulitis Report pathology negative for evidence of colon cancer. Admitted for reversal colostomy issues with prolapse of colostomy Reversal of colostomy, takedown splenic flexure left colon Done May Plan - Discharge Summary Discharge Rx Participant: Yes New Discharge Prescriptions: New Famotidine [Pepcid] 20 mg PO BID #60 tab Continue Lactose-Reduced Food [Ensure Plus] 1 can PO BID Discharge Medication List Lactose-Reduced Food [Ensure Plus] 1 can PO BID 06/01/18 [History] Famotidine [Pepcid] 20 mg PO BID #60 tab 06/10/18 [Rx] Follow up Appointment(s)/Referral(s): [facility] Nurse, [NON-STAFF] - As Needed Reji Peck MD [STAFF PHYSICIAN] - 1 Week Activity/Diet/Wound Care/Special Instructions: No tub bath for six weeks. Shower daily. No lifting over 10 pounds for the next 4 weeks. Low fiber diet May use ice packs to surgical site. staphes to be removed at dr peck office Discharge Disposition: HOME WITH HOME HEALTH SERVICES
== END 2018-06-09 13:20 | disposition home health service (06) | DRG 329 ==
LOC: 2ORMAIN 12:15 → EDSTATUS 12:30 → 4SSUR 17:27
PROVIDERS: ADMIT Surgery; ATTEND Surgery
PROC: 0DSL0ZZ Reposition Transverse Colon, Open Approach (ICD-10-PCS; 2018-06-03)
PROC: 0DSP0ZZ Reposition Rectum, Open Approach (ICD-10-PCS; principal; 2018-06-03 14:30)
DX: K94.09 Other complications of colostomy (principal); E43 Unspecified severe protein-calorie malnutrition; K56.7 Ileus, unspecified; Z68.1 Body mass index [BMI] 19.9 or less, adult; K66.8 Other specified disorders of peritoneum; I83.90 Asymptomatic varicose veins of unspecified lower extremity; K57.30 Diverticulosis of large intestine without perforation or abscess without bleeding; R50.9 Fever, unspecified; Z87.891 Personal history of nicotine dependence; Z87.440 Personal history of urinary (tract) infections; Z98.42 Cataract extraction status, left eye; Z98.41 Cataract extraction status, right eye; Z96.1 Presence of intraocular lens; Z82.49 Family history of ischemic heart disease and other diseases of the circulatory system; Z82.41 Family history of sudden cardiac death; Z80.9 Family history of malignant neoplasm, unspecified; Y83.3 Surgical operation with formation of external stoma as the cause of abnormal reaction of the patient, or of later complication, without mention of misadventure at the time of the procedure
CPT/HCPCS: 71046; 80048; 80053; 81003; 82330; 83036; 83735; 84100; 84478; 85025; 86850; 86870; 86880; 86900; 86901; 86902; 88304; 88307; 94760